=== PATIENT | male | born 1965 | race Caucasian/White ===

== ENCOUNTER 2025-03-17 10:36 | Outpatient (REF) | payer MEDICARE, MEDICAID, SELFPAY ==
--- OUTSIDE RECORDS SUMMARY | 2025-03-18 13:08 | XMS_ITS | Encounter Summary ---
Author Organization [facility] Address [address] [place] [address] Care Team Providers Care Load Mixer Name Role Phone ClairhelgachapinMo denton Primary Care Provider [phone] Reason for Visit * Reason Onset Date Comments provider call back 02/12/2025 Encounter Details Date Type Department Care Team ([facility] st Contact Info) Description 02/12/2025 Telephone Gastroenterology - [place] [address] [place] [address] Xenia Son PA [address] [place], [place] [phone] Social History Tobacco Use Types Packs/Day Years [...] I will send msg to pt via General Sentiment. * Hellen Sanders MA - 02/13/2025 8:27 AM EDT Spoke with patient made him aware Lesia is out of office from a GI standpoint things look normal - Patient states only a brown liquid comes out all the time as soon as he has a bite of food he is running in the bathroom - I did tell Patient you will write via [employer] regarding the results and his stool * Bettina Zimmerman - 02/12/2025 1:47 PM EDT Patient calling to discuss CT abdomen pelvis w contrast results that was performed 02/05/2025 documented in this encounter Plan of Treatment Upcoming Encounters Date Type Department Care Team (Late st Contact Info) Description 04/13/2025 2:00 PM EDT Office Visit Gastroenterology - [place] [address] [place] [address] Xenia Son PA [address] [place] [address] documented as of this encounter Visit Diagnoses Not on filedocumented in this encounter Care Teams Load Mixer Relationship Specialty Start Date End Date Mo Magana DO [address] [place] [phone] PCP - General 08/14/22 documented as of this encounter
--- OUTSIDE RECORDS SUMMARY | 2025-03-18 13:08 | XMS_ITS | Encounter Summary ---
Author Organization [facility] Address [address] [place] [address] Care Team Providers Care Auto Carrier Driver Name Role Phone Mo Magana Primary Care Provider [phone] Encounter Details Date Type Department Care Team (Late Contact Info) Description 01/22/2025 Lab Requisition [facility] [address] [facility] [place] [address] Janice Tello NP [address] [place] [address] [address] [place] [address] Urinary tract infection, site not specified; Hematuria, [...] 2:00 PM EDT Office Visit Gastroenterology - [place] [address] [facility] [address] [place] [phone] Xenia Son PA [address] [facility] [address] [address] documented as of this encounter Procedures Procedure [...] reflex microscopic (01/22/2025 9:00 AM EDT) Specific [place] Urine 1.030 1.003 - 1.030 LAB URINALYSIS - AUTOMATED METHOD 01/22/2025 1:06 PM [facility] pH, Urine 5.5 5.0 - 8.0 pH LAB URINALYSIS - AUTOMATED METHOD 01/22/2025 1:06 PM [facility] Leukocytes, Urine Negative Negative LAB URINALYSIS - AUTOMATED METHOD 01/22/2025 1:06 PM [facility] Nitrite, Urine Negative Negative LAB URINALYSIS - AUTOMATED METHOD 01/22/2025 1:06 PM [facility] Protein, Urine 30(A) <=Trace mg/dL LAB URINALYSIS - AUTOMATED METHOD 01/22/2025 1:06 PM [facility] Glucose, Urine Negative Negative mg/dL LAB URINALYSIS - AUTOMATED METHOD 01/22/2025 1:06 PM [facility] Ketones, Urine Trace(A) Negative mg/dL LAB URINALYSIS - AUTOMATED METHOD 01/22/2025 1:06 PM [facility] Urobilinogen, Urine 1.0 0.2 - 1.0 mg/dL LAB URINALYSIS - AUTOMATED METHOD 01/22/2025 1:06 PM T [facility] Bilirubin, Urine Negative Negative LAB URINALYSIS - AUTOMATED METHOD 01/22/2025 1:06 PM EDT [facility] Blood, Urine Negative Negative LAB URINALYSIS - AUTOMATED METHOD 01/22/2025 1:06 PM [facility] RBC, Urine 1.3 0 - 4 /HPF LAB URINALYSIS - AUTOMATED METHOD 01/22/2025 1:06 PM EDT [facility] WBC, Urine 1.0 0 - 4 /HPF LAB URINALYSIS - AUTOMATED METHOD 01/22/2025 1:06 PM [facility] Squamous Epithelial, Urine 12 0 - 60 /LPF LAB URINALYSIS - AUTOMATED METHOD 01/22/2025 1:06 PM [facility] Bacteria, Urine Negative Negative /HPF LAB URINALYSIS - AUTOMATED METHOD 01/22/2025 1:06 PM [facility] Hyaline Casts, Urine 0.8 0 - 3 /LPF LAB URINALYSIS - AUTOMATED METHOD 01/22/2025 1:06 PM [facility] Urine Urine specimen obtained by clean catch procedure / Unknown 01/22/2025 9:00 AM EDT 01/22/2025 11:06 AM EDT us Camacho Tello DENTURE WAXER LAB URINE ORDERABLES Final Resul t [facility] [address] [place] [address], * Culture urine (01/22/2025 9:00 AM EDT) Culture, Urine <10,000 CFU/mL gram positive cocci, insignificant count, no further workup 01/23/2025 7:44 AM EDT [facility] Urine Urine specimen obtained by clean catch procedure / Unknown 01/22/2025 9:00 AM EDT 01/22/2025 11:06 AM EDT us Camacho Tello DENTURE WAX[facility] LAB MICROBIOLOGY - GENERAL ORDER [place] Final Result [facility] [address] [place] [address], documented in this encounter Visit Diagnoses Diagnosis Urinary tract infection, site not specified Hematuria, unspecified documented in this encounter Care Teams Auto Carrier Driver Relationship Specialty Start Date End Date Mo Magana DO [address] [place] [place] [phone] PCP - General 08/14/22 documented as of this encounter
--- OUTSIDE RECORDS SUMMARY | 2025-03-18 13:08 | XMS_ITS | Encounter Summary ---
Author Organization [facility] Address [address] [place] [address] Care Team Providers Care Rehab Spec Name Role Phone ClairhelgachapinMo denton Primary Care Provider [phone] Reason for Visit * Reason Onset Date Comments Medication request 02/20/2025 Encounter Details Date Type Department Care Team ([facility] st Contact Info) Description 02/20/2025 Telephone Gastroenterology - [place] [address] [facility] [address] [place] [address] Xenia Son PA [address] [place], [place] [phone] Social History Tobacco Use Types Packs/Day Years [...] 02/20/2025 9:57 AM EDT Amanda almanzar from [facility] Specialty pharmacy requesting the maintenance dose of Rinvoq be sent over. Fax # [phone]. , Phone # [phone]. documented in this encounter Plan of Treatment Upcoming Encounters Date Type Department Care Team (Late st Contact Info) Description 04/13/2025 2:00 PM EDT Office Visit Gastroenterology - [place] [address] [place] [phone] Xenia Son PA [address] [place] [address] documented as of this encounter Visit Diagnoses Not on filedocumented in this encounter Care Teams Rehab Spec Relationship Specialty Start Date End Date Mo Magana DO [address] [place] [phone] PCP - General 08/14/22 documented as of this encounter
--- OUTSIDE RECORDS SUMMARY | 2025-03-18 13:09 | XMS_ITS | Clinical Summary ---
Author Organization [facility] Address [address] [place] [address] Phone Care Team Providers Care Cigar Head Pegger Name Role Phone Eliebertin Mo Primary Care Provider [phone] Allergies Active Allergy Reactions Criticality Noted Date [...] disease of small int estine with fistula ([facility] V24, [facility] V28) 07/15/2024 Encounters Date Type Department Care Team Description 02/20/2025 Telephone Gastroenterology [facility] [address] [phone] Xenia Son PA 02/17/2025 Telephone Gastroenterology [facility] 175 [facility] [address] [phone] Xenia Son PA 02/12/2025 Telephone Gastroenterology [facility] 175 [facility] [address] [phone] Xenia Son PA 02/05/2025 7:40 AM EDT - 02/05/2025 11:59 PM EDT Hospital Encounter [facility] CT Scan [address] [place] [phone] Crohn's disease of small intestine with fistula ([facility] V24, [facility] V28) Discharge Disposition: Home or Self Care 01/28/2025 Telephone Gastroenterology [facility] [address] [place] [address] Xenia Son PA 01/22/2025 Lab Requisition [facility] - Main Lab [address] [facility] [place] [address] Janice Tello NP Urinary tract infection, site not specified; Hematuria, unspecified 01/07/2025 2:50 PM EDT Lab Draw Station - [address] [place] [address] Crohn's disease of small intestine with fistula ([facility] V24, [facility] V28) 01/07/2025 2:00 PM EDT Office Visit Gastroenterology [facility] [address] [place] [address] Xenia Son PA Crohn's disease of small intestine with fistula ([facility] V24, [facility] V28) (Primary Dx) 01/07/2025 Telephone Gastroenterology [facility] [address] [place] [address] Xenia Son PA from Last 3 Months Surgical History Surgery Date Site/Laterality Comments OTHER SURGICAL HISTORY COLONOSCOPY COLON SURGERY Medical History Medical History Date Comments Hyperlipidemia Hypertension Diabetes mellitus ([facility] V24, [facility] V28) Crohn's disease of colon with fistula ([facility] 24, [facility] V28) Irritable bowel syndrome Anxiety Depression Chronic pain disorder Arthritis Joint pain multtiple Abdominal pain despite thera py for Crohn's disease ([facility] V24, [facility] V28) Social History Tobacco Use Types Packs/Day [...] 2:00 PM EDT Office Visit Gastroenterology - [place] [address] [place] [address] Xenia Son PA [address] [place] [address] Health Maintenance Due Date Last Done Comments [...] Crohn's disease of small intestine with fistula ([facility] V24, [facility] V28) URINALYSIS WITH REFLEX MICROSCOPIC Routine 01/22/2025 [...] CREATINE KINASE Routine 01/09/2025 2:39 PM EDT GABBEI (generalized anxiety disorder) Crohn disease (CMS/HCC V24, [...] Signed Date: 02/05/2025 16:07 ET Workstation ID: [id number] Transcribed By: Self Edit Transcribed Date: 02/05/2025 [...] Signed Date: 02/05/2025 16:07 ET Workstation ID: [id number] Transcribed By: Self Edit Transcribed Date: 02/05/2025 15:57 ET Xenia RUTH IM CT PROCEDURES Final Resul t * (ABNORMAL) Urinalysis with reflex microscopic (01/22/2025 9:00 AM ED) Specific Carmine Urine 1.030 1.003 - 1.030 LAB URINALYSIS - AUTOMATED METHOD 01/22/2025 1:06 PM [facility] pH, Urine 5.5 5.0 - 8.0 pH LAB URINALYSIS - AUTOMATED METHOD 01/22/2025 1:06 PM [facility] Leukocytes, Urine Negative Negative LAB URINALYSIS - AUTOMATED METHOD 01/22/2025 1:06 PM [facility] Nitrite, Urine Negative Negative LAB URINALYSIS - AUTOMATED METHOD 01/22/2025 1:06 PM [facility] Protein, Urine 30(A) <=Trace mg/dL LAB URINALYSIS - AUTOMATED METHOD 01/22/2025 1:06 PM [facility] Glucose, Urine Negative Negative mg/dL LAB URINALYSIS - AUTOMATED METHOD 01/22/2025 1:06 PM [facility] Ketones, Urine Trace(A) Negative mg/dL LAB URINALYSIS - AUTOMATED METHOD 01/22/2025 1:06 PM [facility] Urobilinogen, Urine 1.0 0.2 - 1.0 mg/dL LAB URINALYSIS - AUTOMATED METHOD 01/22/2025 1:06 PM [facility] Bilirubin, Urine Negative Negative LAB URINALYSIS - AUTOMATED METHOD 01/22/2025 1:06 PM [facility] Blood, Urine Negative Negative LAB URINALYSIS - AUTOMATED METHOD 01/22/2025 1:06 PM [facility] RBC, Urine 1.3 0 - 4 /HPF LAB URINALYSIS - AUTOMATED METHOD 01/22/2025 1:06 PM [facility] WBC, Urine 1.0 0 - 4 /HPF LAB URINALYSIS - AUTOMATED METHOD 01/22/2025 1:06 PM EDT [facility] Squamous Epithelial, Urine 12 0 - 60 /LPF LAB URINALYSIS - AUTOMATED METHOD 01/22/2025 1:06 PM EDT [facility] Bacteria, Urine Negative Negative /HPF LAB URINALYSIS - AUTOMATED METHOD 01/22/2025 1:06 PM EDT [facility] Hyaline Casts, Urine 0.8 0 - 3 /LPF LAB URINALYSIS - AUTOMATED METHOD 01/22/2025 1:06 PM EDT [facility] Urine Urine specimen obtained by clean catch procedure / Unknown 01/22/2025 9:00 AM EDT 01/22/2025 11:06 AM EDT us Camacho Tello MILLINERY COPYIST LAB URINE ORDERABLES Final Resul t Performing Organization Address City/[facility]/ZIP Co de Phone Number [facility] [address] [place] [address], * Culture urine (01/22/2025 9:00 AM EDT) Culture, Urine <10,000 CFU/mL gram positive cocci, insignificant count, no further workup 01/23/2025 7:44 AM EDT [facility] Urine Urine specimen obtained by clean catch procedure / Unknown 01/22/2025 9:00 AM EDT 01/22/2025 11:06 AM EDT us Camacho Tello MILLINERY COPYIST LAB MICROBIOLOGY - GENERAL ORDER ARCADIO Final Result [facility] [address] [place] [address], [place] [phone] * Prostate specific antigen screen (01/09/2025 2:39 PM EDT) PSA 1.23 0.00 - 4.00 ng/mL LAB CHEMISTRY METHOD [facility] Blood Venous blood specimen / Unknown Venipuncture / Unknown 01/09/2025 2:39 PM EDT 01/09/2025 2:39 PM EDT Narrative [facility] - 01/09/2025 7:50 PM EDT The Siemens Advia Centaur Chemiluminescent Immunoassay is used. Results obtained with different assay methods or kits cannot be used interchangeably. Results cannot be interpreted as absolute evidence of the presence or absence of malignant disease. us Camacho Tello MILLINERY COPYIST LAB BLOOD ORDERABLES Final Resul t [facility] [address] [place] [address], [place] [phone] * (ABNORMAL) CBC auto differential (01/09/2025 2:39 PM EDT) Only the most recent of2 resultswithin the time period is included. WBC 9.1 4.8 - 10.8 K/mcL LAB HEMETOLOGY METHOD 01/09/2025 7:32 PM EDT [facility] RBC 4.30(L) 4.50 - 5.50 M/mcL LAB HEMETOLOGY METHOD 01/09/2025 7:32 PM EDT [facility] Hemoglobin 12.3(L) 13.5 - 17.5 g/dL LAB HEMETOLOGY METHOD 01/09/2025 7:32 PM EDT [facility] Hematocrit 37.6(L) 42.0 - 54.0 % LAB HEMETOLOGY METHOD 01/09/2025 7:32 PM EDT [facility] MCV 88.3 79.0 - 98.0 FL LAB HEMETOLOGY METHOD 01/09/2025 7:32 PM EDT [facility] MCH 28.9 27.0 - 32.0 pcg LAB HEMETOLOGY METHOD 01/09/2025 7:32 PM EDT [facility] MCHC 32.7 32.0 - 37.0 g/dL LAB HEMETOLOGY METHOD 01/09/2025 7:[facility] RDW 14.5 11.0 - 15.0 % LAB HEMETOLOGY METHOD 01/09/2025 7:[facility] Platelets 286 130 - 400 K/mcL LAB HEMETOLOGY METHOD 01/09/2025 7:[facility] MPV 10.1 7.0 - 11.0 FL LAB HEMETOLOGY METHOD 01/09/2025 7:[facility] NRBC 0.0 <1.0 % LAB HEMETOLOGY METHOD 01/09/2025 7:32 PM [facility] NRBC Absolute 0.00 <0.10 K/mcL LAB HEMETOLOGY METHOD 01/09/2025 7:32 PM [facility] Neutrophils Relative 65.3 % LAB HEMETOLOGY METHOD 01/09/2025 7:32 PM [facility] Lymphocytes Relative 25.6 % LAB HEMETOLOGY METHOD 01/09/2025 7:32 PM [facility] Monocytes Relative 7.1 % LAB HEMETOLOGY METHOD 01/09/2025 7:32 PM [facility] Eosinophils Relative 0.9 % LAB HEMETOLOGY METHOD 01/09/2025 7:32 PM [facility] Basophils Relative 0.8 % LAB HEMETOLOGY METHOD 01/09/2025 7:32 PM [facility] Immature Granulocytes Relative 0.3 % LAB HEMETOLOGY METHOD 01/09/2025 7:32 PM [facility] Neutrophils Absolute 5.95 1.50 - 7.00 K/mcL LAB HEMETOLOGY METHOD 01/09/2025 7:32 PM [facility] Lymphocytes Absolute 2.33 1.00 - 5.00 K/mcL LAB HEMETOLOGY METHOD 01/09/2025 7:32 PM EDT [facility] Monocytes Absolute 0.65 0.20 - 1.00 K/[facility] LAB HEMETOLOGY METHOD 01/09/2025 7:32 PM EDT [facility] Eosinophils Absolute 0.08 0.00 - 0.50 K/[facility] LAB HEMETOLOGY METHOD 01/09/2025 7:32 PM EDT [facility] Basophils Absolute 0.07 0.00 - 0.20 K/[facility] LAB HEMETOLOGY METHOD 01/09/2025 7:32 PM EDT [facility] Immature Granulocytes Absolute 0.03 0.00 - 0.03 K/[facility] LAB HEMETOLOGY METHOD 01/09/2025 7:32 PM EDT [facility] Blood Venous blood specimen / Unknown Venipuncture / Unknown 01/09/2025 2:39 PM EDT 01/09/2025 2:39 PM EDT us Camacho Tello MILLINERY COPYIST LAB BLOOD ORDERABLES Final Resul t [facility] [address] [place] [address], * Iron and TIBC (01/09/2025 2:39 PM EDT) Iron 146 50 - 160 mcg/dL LAB CHEMISTRY METHOD 01/09/2025 7:41 PM EDT [facility] TIBC 299 250 - 450 mcg/dL LAB CHEMISTRY METHOD 01/09/2025 7:41 PM EDT [facility] Iron Saturation 49 20 - 50 % LAB CHEMISTRY METHOD 01/09/2025 7:41 PM EDT [facility] Blood Venous blood specimen / Unknown Venipuncture / Unknown 01/09/2025 2:39 PM EDT 01/09/2025 2:39 PM EDT Camacho Tello MILLINERY COPYIST LAB BLOOD ORDERABLES Final Resul t Performing Organization Address [facility] de Phone Number [facility] [address] [place] [address], [place] [phone] * (ABNORMAL) Reticulocyte count (01/09/2025 2:39 PM EDT) Retic Ct Abs 0.100(H) 0.030 - 0.090 M/mcL LAB HEMETOLOGY METHOD 01/09/2025 7:32 PM EDT [facility] Retic Ct Pct 2.3(H) 0.7 - 1.7 % LAB HEMETOLOGY METHOD 01/09/2025 7:32 PM EDT [facility] Immature Retic Fract 11.8 2.3 - 15.9 % LAB HEMETOLOGY METHOD 01/09/2025 7:32 PM EDT [facility] Reticulocyte Hemoglobin 34.6 >29.0 pcg LAB HEMETOLOGY METHOD 01/09/2025 7:32 PM EDT [facility] Blood Venous blood specimen / Unknown Venipuncture / Unknown 01/09/2025 2:39 PM EDT 01/09/2025 2:39 PM EDT Janice Tello MILLINERY COPYIST LAB BLOOD ORDERABLES Final Resul t Performing Organization Address City/[facility]/ZIP Or de Phone Number [facility] [address] [place] [address], [place] [phone] * Ferritin (01/09/2025 2:39 PM EDT) Ferritin 124 26 - 388 ng/mL LAB CHEMISTRY METHOD 01/09/2025 7:41 PM EDT [facility] Blood Venous blood specimen / Unknown Venipuncture / Unknown 01/09/2025 2:39 PM EDT 01/09/2025 2:39 PM EDT us Janice Tello MILLINERY COPYIST LAB BLOOD ORDERABLES Final Resul t Performing Organization Address [facility]/ZIP Co de Phone Number [facility] [address] [place] [address], [place] [phone] * Creatine kinase (01/09/2025 2:39 PM EDT) Pathologist [facility] Total CK 123 22 - 269 unit/L LAB CHEMISTRY METHOD 01/09/2025 7:41 PM EDT [facility] Blood Venous blood specimen / Unknown Venipuncture / Unknown 01/09/2025 2:39 PM EDT 01/09/2025 2:39 PM EDT us Janice Tello MILLINERY COPYIST LAB BLOOD ORDERABLES Final Resul t Performing Organization Address [facility] de Phone Number [facility] [address] [place] [address], [place] [phone] * Interferon gamma interpretation (01/07/2025 2:50 PM EDT) [facility] Quantiferon Plus Interpretation Negative Negative LAB CHEMISTRY METHOD 01/09/2025 10:51 AM EDT [facility] Blood Venous blood specimen / Unknown Venipuncture / Unknown 01/07/2025 2:50 PM EDT 01/07/2025 2:50 PM EDT us Xenia RUTH LAB BLOOD ORDERABLES Final Re sult Performing Organization Address [facility]/ZIP Co de Phone Number [facility] [address] [place] [address], [place] [phone] * Interferon gamma antigen 2 (01/07/2025 2:50 PM EDT) Blood Venous blood specimen / Unknown Venipuncture / Unknown 01/07/2025 2:50 PM EDT 01/07/2025 2:50 PM EDT us Xenia RUTH LAB BLOOD ORDERABLES Final Re sult Performing Organization Address City/[facility]/ZIP Co de Phone Number [facility] [address] [place] [address], [place] [phone] * Interferon gamma antigen 1 (01/07/2025 2:50 PM EDT) Blood Venous blood specimen / Unknown Venipuncture / Unknown 01/07/2025 2:50 PM EDT 01/07/2025 2:50 PM EDT us Xenia RUTH LAB BLOOD ORDERABLES Final Re sult Performing Organization Address [facility] Co de Phone Number [facility] [address] [place] [address], [place] [phone] * Interferon gamma mitogen (01/07/2025 2:50 PM EDT) Blood Venous blood specimen / Unknown Venipuncture / Unknown 01/07/2025 2:50 PM EDT 01/07/2025 2:50 PM EDT Xenia RUTH LAB BLOOD ORDERABLES Final Re sult Performing Organization Address [facility] Co de Phone Number [facility] [address] [place] [address], [place] [phone] * Interferon gamma NIL (01/07/2025 2:50 PM EDT) Blood Venous blood specimen / Unknown Venipuncture / Unknown 01/07/2025 2:50 PM EDT 01/07/2025 2:50 PM EDT us Xenia RUTH LAB BLOOD ORDERABLES Final Re sult Performing Organization Address [facility]/ZIP Co de Phone Number [facility] [address] [place] [address], [place] [phone] * Hepatitis B e antibody (01/07/2025 2:50 PM EDT) Hepatitis Be Antibody Nonreactive Nonreactive 01/10/2025 6:34 AM EDT [facility] Comment: Test performed at [facility], [address] [place] [address] Adela Jung MD, PhD - Manager Interface Blood Venous blood specimen / Unknown Venipuncture / Unknown 01/07/2025 2:50 PM EDT 01/07/2025 2:50 PM EDT us Xenia Huy PA LAB BLOOD ORDERABLES Final Re sult [facility] [address] [place] [address] * Hepatitis B e antigen (01/07/2025 2:50 PM EDT) Pathologist [facility] Hepatitis Be Antigen Nonreactive Nonreactive 01/10/2025 6:34 AM EDT [facility] Comment: Test performed at [facility], [address] [place] [address] Adela Jung MD, PhD - Manager Interface Blood Venous blood specimen / Unknown Venipuncture / Unknown 01/07/2025 2:50 PM EDT 01/07/2025 2:50 PM EDT us Xeniaaniya Son PA LAB BLOOD ORDERABLES Final Re sult [facility] [address] [place] [address] * C-reactive protein (01/07/2025 2:50 PM EDT) Pathologist [facility] C-Reactive Protein <0.29 <=0.50 mg/dL LAB CHEMISTRY METHOD 01/07/2025 7:00 PM EDT [facility] Blood Venous blood specimen / Unknown Venipuncture / Unknown 01/07/2025 2:50 PM EDT 01/07/2025 2:50 PM EDT us Xenia RUTH LAB BLOOD ORDERABLES Final Re sult [facility] [address] [place] [address], [place] [phone] * (ABNORMAL) Comprehensive metabolic panel (01/07/2025 2:50 PM EDT) Sodium 136 133 - 145 mmol/L LAB CHEMISTRY METHOD 01/07/2025 7:24 PM [facility] Potassium 4.0 3.5 - 5.5 mmol/L LAB CHEMISTRY METHOD 01/07/2025 7:24 PM [facility] Chloride 102 96 - 110 mmol/L LAB CHEMISTRY METHOD 01/07/2025 7:24 PM [facility] CO2 23 21 - 32 mmol/L LAB CHEMISTRY METHOD 01/07/2025 7:24 PM [facility] Anion Gap 11 3 - 11 LAB CHEMISTRY METHOD 01/07/2025 7:24 PM [facility] Glucose 199(H) 70 - 100 mg/dL LAB CHEMISTRY METHOD 01/07/2025 7:24 PM [facility] BUN 13 5 - 25 mg/dL LAB CHEMISTRY METHOD 01/07/2025 7:24 PM [facility] Creatinine 1.12 0.70 - 1.30 mg/dL LAB CHEMISTRY METHOD 01/07/2025 7:24 PM [facility] eGFR 75 >=60 mL/min/1. 73m2 LAB CHEMISTRY METHOD 01/07/2025 7:24 PM [facility] Comment:Calculation based on the Chronic Kidney Disease Epidemiology Collaboration (CKD-EPI) equation refit without adjustment for race. BUN/Creatinine Ratio 11.6 LAB CHEMISTRY METHOD 01/07/2025 7:24 PM [facility] Calcium 9.9 8.5 - 10.5 mg/dL LAB CHEMISTRY METHOD 01/07/2025 7:24 PM EDT [facility] AST (SGOT) 14 10 - 42 unit/L LAB CHEMISTRY METHOD 01/07/2025 7:24 PM EDT [facility] ALT (SGPT) 27 10 - 60 unit/L LAB CHEMISTRY METHOD 01/07/2025 7:24 PM EDT [facility] Alkaline Phosphatase 86 42 - 121 unit/L LAB CHEMISTRY METHOD 01/07/2025 7:24 PM EDT [facility] Total Protein 7.8 6.0 - 8.0 g/dL LAB CHEMISTRY METHOD 01/07/2025 7:24 PM [facility] Albumin 3.9 3.2 - 5.0 g/dL LAB CHEMISTRY METHOD 01/07/2025 7:24 PM [facility] Total Bilirubin 0.4 0.0 - 1.4 mg/dL LAB CHEMISTRY METHOD 01/07/2025 7:24 PM T [facility] Blood Venous blood specimen / Unknown Venipuncture / Unknown 01/07/2025 2:50 PM EDT 01/07/2025 2:50 PM EDT Xenia RUTH LAB BLOOD ORDERABLES Final Re sult [facility] [address] [place] [address], * Lipid panel with reflex to direct LDL (10/17/2024 2:48 PM EDT) Cholesterol 98 0 - 200 mg/dL LAB CHEMISTRY METHOD 10/17/2024 8:13 PM EDT [facility] Triglycerides 89 0 - 150 mg/dL LAB CHEMISTRY METHOD 10/17/2024 8:13 PM EDT [facility] HDL 51 >=40 mg/dL LAB CHEMISTRY METHOD 10/17/2024 8:13 PM EDT [facility] LDL Calculated 29 0 - 100 mg/dL LAB CHEMISTRY METHOD 10/17/2024 8:13 PM EDT [facility] VLDL Cholesterol Rajeev 17.8 mg/dL LAB CHEMISTRY METHOD 10/17/2024 8:13 PM EDT [facility] Non HDL Chol. (LDL+VLDL) 47 <145 mg/dL LAB CHEMISTRY METHOD 10/17/2024 8:13 PM EDT [facility] Chol/HDL Ratio 1.9 0.0 - 4.4 LAB CHEMISTRY METHOD 10/17/2024 8:13 PM EDT [facility] Blood Venous blood specimen / Unknown Venipuncture / Unknown 10/17/2024 2:48 PM EDT 10/17/2024 2:48 PM EDT us Camacho Tello MILLINERY COPYIST LAB BLOOD ORDERABLES Final Resul t Performing Organization Address City/[facility]/ZIP Co de Phone Number [facility] [address] [place] [address], [place] [phone] * Hemoglobin A1c (10/17/2024 2:48 PM EDT) Hemoglobin A1C 6.0 <6.5 % LAB CHEMISTRY METHOD 10/17/2024 9:34 PM EDT [facility] Mean Bld Glu Estim. 126 mg/dL LAB CHEMISTRY METHOD 10/17/2024 9:34 PM EDT [facility] Blood Venous blood specimen / Unknown Venipuncture / Unknown 10/17/2024 2:48 PM EDT 10/17/2024 2:48 PM EDT us Camacho Tello MILLINERY COPYIST LAB BLOOD ORDERABLES Final Resul t Performing Organization Address City/[facility]/ZIP Co de Phone Number [facility] [address] [place] [address], [place] [phone] from Last 3 Months or Most Recently Relevant to Health Maintenance Insurance MEDICA[place] MEDICARE [facility] [place] [employer] Care Teams Cigar Head Pegger Relationship Specialty Start Date End Date Mo Magana DO [address] [place] [id number] PCP - General 08/14/22
== END 2025-03-17 10:37 | disposition home or self-care (01) ==
LOC: HO.HOSX 10:36
PROVIDERS: Visit Provider Orthopaedic Surgery
DX: M25.512 Pain in left shoulder (principal); M54.2 Cervicalgia; R20.0 Anesthesia of skin; R29.898 Other symptoms and signs involving the musculoskeletal system
CPT/HCPCS: 99202

== ENCOUNTER 2025-03-17 14:45 | Outpatient (AMB) | payer MEDICARE, MEDICAID, SELFPAY ==
--- NOTE | 2025-03-17 15:18 | MHC.OFFVIS ---
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 He also reports left shoulder pain and weakness. He describes his neck pain as sharp in nature. At times the patient states that his left arm will ?go numb?. The numbness involves all of his fingers and thumb. His symptoms have gotten worse over the last year in spite of continued non operative treatments. He has failed the last 6 weeks of conservative treatment which has included Tylenol, ibuprofen, gabapentin, a home exercise program and physical therapy exercises. The patient describes his shoulder pain as sharp in nature. Most of the pain is along the lateral aspect of his shoulder. Reports weakness when lifting his left hand above shoulder height. 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 Allergies No Known Allergies Allergy (Verified 03/17/25 15:29) Medication List - Last Reconciled 03/18/25 by Bladimir Michael MD amlodipine 5 mg PO DAILY gabapentin mg PO glipizide ER mg PO ibuprofen 800 mg PO TID lorazepam mg PO losartan 100 mg PO DAILY metformin 1,000 mg PO BID omeprazole 20 mg PO DAILY rosuvastatin 10 mg PO DAILY tamsulosin mg PO PFSH Surgical History (Updated 03/17/25 @ 15:31 by MAILE Blackman) History of intestinal surgery Social History (Updated 03/17/25 @ 15:31 by MAILE Blackman) Alcohol intake: former Patient Tobacco Use Status: Never used Tobacco Substance Use Type: Marijuana Current occupational status: disabled Current occupation: right hand dominant Physical Exam Vital Signs: BMI result Body Mass Index 38.0 Const Other: Well-nourished well-developed very friendly male awake alert and oriented x3 in no acute distress Neck Other: Cervical spine examination shows pain with range of motion, left-sided paraspinal muscle tenderness, positive Spurling's test, 4/5 strength with testing of his left wrist extensors and biceps when compared to 5/5 strength on his right side Extrem Other: Left shoulder examination shows decreased range of motion when compared to his right shoulder, 4/5 strength with supraspinatus testing, positive impingement signs, no instability Assessment & Plan Assessment & Plan (1) Left shoulder pain: Code(s): M25.512 - Pain in left shoulder Category: Medical (2) Neck pain on left side: Code(s): M54.2 - Cervicalgia Category: Medical Plan Mr. Aguilar presents with progressively worsening neck pain which radiates into his left arm as well as associated left arm numbness and weakness most likely due to cervical stenosis. Thus, I will send the patient for an MRI of his cervical spine for further evaluation. I will contact him by phone once the MRI results are available. We will hold off on a left shoulder MRI for now. Feel free to call me at any time should questions regarding his orthopedic management arise. Thank you very much for asking me to see this very friendly gentleman. I spent 21 minutes in reviewing the patient's records and imaging studies, seeing the patient and documenting in the medical record. Orders: Orders XR shoulder LT min 2V 03/17/25 M25.512 - Pain in left shoulder MR cervical spine wo con Today M54.2 - Cervicalgia Coding Level of Care Code New Pt Level 3 (10444) Complex EM visit Add On G2211 Diagnoses Left shoulder pain M25.512 Neck pain on left side M54.2
[2025-03-17 15:28] VITALS: BMI 38.0
--- OUTSIDE RECORDS SUMMARY | 2025-03-17 18:24 | XMS_ITS | Encounter Summary ---
Author Organization [facility] Address [address] [place] [address] Care Team Providers Care Dry Placer Machine Operator Name Role Phone ClairhelgachapinMo denton Primary Care Provider [phone] Reason for Visit * Reason Onset Date Comments Medication request 02/20/2025 Encounter Details Date Type Department Care Team ([facility] st Contact Info) Description 02/20/2025 Telephone Gastroenterology - [place] [address] [place] [address] Xenia Son PA [address] [place], [place] [id number] Social History Tobacco Use Types Packs/Day Years Used Date Smoking Tobacco: Never Smokeless Tobacco: Never Alcohol Use Standard Drinks/Week Comments Not Currently 0 (1 standard drink = 0.6 oz pur e alcohol) Interpersonal Safety Answer Date Record ed Physical Abuse 09/11/2024 Verbal Abuse 09/11/2024 Sex and Gender Information Value Date Recorded Sex Assigned at Male 05/07/2024 2:54 PM EST Legal Sex Male 3:15 AM EST Gender Identity Male 05/07/2024 2:54 PM EST Sexual Orientation Straight 09/11/2024 8: 03 AM EDT documented as of this encounter Ordered Prescriptions Prescription Sig Dispense Quantity Refills Last Filled Start Date End Date upadacitinib (Rinvoq) 15 mg tablet extended release 24 hr Take 15 mg by mouth 1 (one) time each day. Start after rinvoq 45mg completed. 30 tablet 3 02/23/2025 documented in this encounter Progress Notes * FARAZ Sagastume - 02/23/2025 10:53 AM EDT done * Alyson Bhardwaj - 02/23/2025 9:53 AM EDT Pharmacy called on this prescription - let them know it is pended and waiting for provider to sign. * Sanjuana Bolanos LPN - 02/23/2025 9:30 AM EDT Rinvoq 15mg pended, please send. * Bettina Zimmerman - 02/20/2025 9:57 AM EDT Amanda almanzar from [facility] pharmacy requesting the maintenance dose of Rinvoq be sent over. Fax # [phone]. , Phone # [phone]. documented in this encounter Plan of Treatment Upcoming Encounters Date Type Department Care Team (Late st Contact Info) Description 04/13/2025 2:00 PM EDT Office Visit Gastroenterology - [place] [address] [place] [phone] Xenia Son PA [address] [place] [address] documented as of this encounter Visit Diagnoses Not on filedocumented in this encounter Care Teams Dry Placer Machine Operator Relationship Specialty Start Date End Date Mo Magana DO [address] [place] [phone] PCP - General 08/14/22 documented as of this encounter
--- OUTSIDE RECORDS SUMMARY | 2025-03-17 18:24 | XMS_ITS | Encounter Summary ---
Author Organization [facility] Address [address] [place] [address] Care Team Providers Care Industrial Twisting Machine Operator Name Role Phone ClairhelgachapinMo denton Primary Care Provider [phone] Reason for Visit * Reason Onset Date Comments provider call back 02/12/2025 Encounter Details Date Type Department Care Team ([facility] st Contact Info) Description 02/12/2025 Telephone Gastroenterology - [place] [address] [place] [address] Xenia Son PA [address] [place], [place] [phone] Social History Tobacco Use Types Packs/Day Years [...] AM EDT documented as of this encounter Progress Notes * FARAZ Sagastume - 02/14/2025 3:07 PM EDT I will send msg to pt via [facility]. * Hellen Sanders MA - 02/13/2025 8:27 AM EDT Spoke with patient made him aware Lesia is out of office from a GI standpoint things look normal - Patient states only a brown liquid comes out all the time as soon as he has a bite of food he is running in the bathroom - I did tell Patient you will write via [facility] regarding the results and his stool * Bettina Zimmerman - 02/12/2025 1:47 PM EDT Patient calling to discuss CT abdomen pelvis w contrast results that was performed 02/05/2025 documented in this encounter Plan of Treatment Upcoming Encounters Date Type Department Care Team (Late st Contact Info) Description 04/13/2025 2:00 PM EDT Office Visit Gastroenterology - [place] [address] [place] [address] Xenia Son PA [address] [place] [address] documented as of this encounter Visit Diagnoses Not on filedocumented in this encounter Care Teams Industrial Twisting Machine Operator Relationship Specialty Start Date End Date Mo Magana DO [address] [place] [phone] PCP - General 08/14/22 documented as of this encounter
--- OUTSIDE RECORDS SUMMARY | 2025-03-17 18:24 | XMS_ITS | Encounter Summary ---
Author Organization [facility] Address [address] [place] [address] Care Team Providers Care Counter Tender Name Role Phone Mo Magana Primary Care Provider [phone] Encounter Details Date Type Department Care Team (Late Contact Info) Description 01/22/2025 Lab Requisition [facility] [address] [facility] [place] [address] Janice Tello NP [address] [place] [address] [address] [place] [address] Urinary tract infection, site not specified; Hematuria, unspecified Social History Tobacco Use Types Packs/Day Years [...] AM EDT documented as of this encounter Plan of Treatment Upcoming Encounters Date Type Department Care Team (Late Contact Info) Description 04/13/2025 2:00 PM EDT Office Visit Gastroenterology - [place] [address] [place] [phone] Xenia Son PA [address] [address] documented as of this encounter Procedures Procedure Name Priority Date/Time Associated Diagnosis Comments URINALYSIS WITH REFLEX MICROSCOPIC Routine 01/22/2025 9:00 AM EDT Urinary tract infection, site not specified Hematuria, unspecified URINALYSIS WITH REFLEX MICROSCOPIC Routine 01/22/2025 9:00 AM EDT Urinary tract infection, site not specified Hematuria, unspecified CULTURE URINE Routine 01/22/2025 9:00 AM EDT Urinary tract infection, site not specified Hematuria, unspecified documented in this encounter Results * (ABNORMAL) Urinalysis with reflex microscopic (01/22/2025 9:00 AM EDT) Specific [place] Urine 1.030 1.003 - 1.030 LAB URINALYSIS - AUTOMATED METHOD 01/22/2025 1:[address] [facility] pH, Urine 5.5 5.0 - 8.0 pH LAB URINALYSIS - AUTOMATED METHOD 01/22/2025 1:[address] [facility] Leukocytes, Urine Negative Negative LAB URINALYSIS - AUTOMATED METHOD 01/22/2025 1:[address] [facility] Nitrite, Urine Negative Negative LAB URINALYSIS - AUTOMATED METHOD 01/22/2025 1:[address] [facility] Protein, Urine 30(A) <=Trace mg/dL LAB URINALYSIS - AUTOMATED METHOD 01/22/2025 1:[address] [facility] Glucose, Urine Negative Negative mg/dL LAB URINALYSIS - AUTOMATED METHOD 01/22/2025 1:[address] [facility] Ketones, Urine Trace(A) Negative mg/dL LAB URINALYSIS - AUTOMATED METHOD 01/22/2025 1:[address] [facility] Urobilinogen, Urine 1.0 0.2 - 1.0 mg/dL LAB URINALYSIS - AUTOMATED METHOD 01/22/2025 1:06 PM T [facility] Bilirubin, Urine Negative Negative LAB URINALYSIS - AUTOMATED METHOD 01/22/2025 1:06 PM EDT [facility] Blood, Urine Negative Negative LAB URINALYSIS - AUTOMATED METHOD 01/22/2025 1:[address] [facility] RBC, Urine 1.3 0 - 4 /HPF LAB URINALYSIS - AUTOMATED METHOD 01/22/2025 1:06 PM EDT [facility] WBC, Urine 1.0 0 - 4 /HPF LAB URINALYSIS - AUTOMATED METHOD 01/22/2025 1:[address] [facility] Squamous Epithelial, Urine 12 0 - 60 /LPF LAB URINALYSIS - AUTOMATED METHOD 01/22/2025 1:[address] [facility] Bacteria, Urine Negative Negative /HPF LAB URINALYSIS - AUTOMATED METHOD 01/22/2025 1:[address] [facility] Hyaline Casts, Urine 0.8 0 - 3 /LPF LAB URINALYSIS - AUTOMATED METHOD 01/22/2025 1:[address] [facility] Urine Urine specimen obtained by clean catch procedure / Unknown 01/22/2025 9:00 AM EDT 01/22/2025 11:06 AM EDT us Camacho Tello DISEASE EDUCATION SPECIALIST LAB URINE ORDERABLES Final Resul t [facility] [address] [place] [address], * Culture urine (01/22/2025 9:00 AM EDT) Culture, Urine <10,000 CFU/mL gram positive cocci, insignificant count, no further workup 01/23/2025 7:44 AM EDT [facility] Urine Urine specimen obtained by clean catch procedure / Unknown 01/22/2025 9:00 AM EDT 01/22/2025 11:06 AM EDT us Camacho Tello DISEASE EDUCATION SPECIALIST LAB MICROBIOLOGY - GENERAL ORDER [place] Final Result [facility] [address] [place] [address], documented in this encounter Visit Diagnoses Diagnosis Urinary tract infection, site not specified Hematuria, unspecified documented in this encounter Care Teams Counter Tender Relationship Specialty Start Date End Date Mo Magana DO [address] [place] [phone] PCP - General 08/14/22 documented as of this encounter
--- OUTSIDE RECORDS SUMMARY | 2025-03-17 18:25 | XMS_ITS | Clinical Summary ---
Author Organization [facility] Address [address] [place] [address] Phone Care Team Providers Care Director Learning Services Name Role Phone Eliebertin Mo Primary Care Provider [phone] Allergies Active Allergy Reactions Criticality Noted Date Comments Adalimumab Rash 12/27/2022 Medications losartan (COZAAR) 100 mg tablet 1 tablet (100 mg total). Active metFORMIN (GLUCOPHAGE) 1,000 mg tablet Take 1 tablet (1,000 mg total) by mouth 2 (two) times a day with meals. Active freestyle (FreeStyle Lancets) 28 gauge lancets Active amLODIPine (NORVASC) 5 mg tablet Take 1 tablet (5 mg total) by mouth 1 (one) time each day. Active rosuvastatin (CRESTOR) 10 mg tablet Take 1 tablet (10 mg total) by mouth 1 (one) time each day. Active LORazepam (ATIVAN) 0.5 mg tablet Take 1 tablet (0.5 mg total) by mouth every 6 (six) hours if needed for anxiety. Active buprenorphine-n aloxone (Suboxone) 8-2 mg per SL film Place under the tongue 1 (one) time each day. After the medication is completely dissolved, take a large sip of water, swish it around teeth and gums, and swallow. Wait at least 1 hour before brushing teeth to avoid damage to your teeth. Active glipiZIDE (GLUCOTROL XL) 10 mg 24 hr tablet 1 tablet (10 mg total). Active oxyCODONE (ROXICODONE) 5 mg immediate release tablet Take 1 tablet (5 mg total) by mouth every 4 (four) hours if needed for severe pain. Max Daily Amount: 30 mg 15 tablet 5 Active Additional Information Patient not taking.Reported on 01/07/2025 magnesium oxide 500 mg magnesium tablet Take 1 tablet by mouth 1 (one) time each day. 30 each 3 5 Active predniSONE (DELTASONE) 10 mg tablet Please take 4 pills of prednisone for 5 days, then take 3 pills of prednisone for 5 days, then take 2 pills of prednisone for 5 days, then took 1 pill of prednisone for 5 days, then take half a pill of prednisone for 5 days 60 tablet 1 5 Active upadacitinib (Rinvoq) 45 mg tablet extended release 24 hr Take 45 mg by mouth 1 (one) time each day. After 12 weeks, take 15mg daily. 30 tablet 2 5 Active upadacitinib (Rinvoq) 15 mg tablet extended release 24 hr Take 15 mg by mouth 1 (one) time each day. Start after rinvoq 45mg completed. 30 tablet 3 5 Active Active Problems Problem Noted Date Diagnosed Date Crohn's disease of small int estine with fistula ([facility] V24, [facility] V28) 07/15/2024 Encounters Date Type Department Care Team Description 02/20/2025 Telephone Gastroenterology [facility] [address] [phone] Xenia Son PA 02/17/2025 Telephone Gastroenterology [facility] 175 [facility] [address] [phone] Xenia Son PA 02/12/2025 Telephone Gastroenterology [facility] 175 [facility] [address] [phone] Xenia Son PA 02/05/2025 7:40 AM EDT - 02/05/2025 11:59 PM EDT Hospital Encounter [facility] CT Scan [address] [place] [phone] Crohn's disease of small intestine with fistula ([facility] V24, [facility] V28) Discharge Disposition: Home or Self Care 01/28/2025 Telephone Gastroenterology [facility] [address] [place] [address] Xenia Son PA 01/22/2025 Lab Requisition [facility] - Main Lab [address] [facility] [place] [address] Janice Tello NP Urinary tract infection, site not specified; Hematuria, unspecified 01/07/2025 2:50 PM EDT Lab Draw Station - [address] [place] [address] Crohn's disease of small intestine with fistula ([facility] V24, [facility] V28) 01/07/2025 2:00 PM EDT Office Visit Gastroenterology [facility] [address] [place] [address] Xenia Son PA Crohn's disease of small intestine with fistula ([facility] V24, [facility] V28) (Primary Dx) 01/07/2025 Telephone Gastroenterology [facility] [address] [place] [address] Xenia Son PA from Last 3 Months Surgical History Surgery Date Site/Laterality Comments OTHER SURGICAL HISTORY COLONOSCOPY COLON SURGERY Medical History Medical History Date Comments Hyperlipidemia Hypertension Diabetes mellitus ([facility] V24, [facility] V28) Crohn's disease of colon with fistula ([facility] V 24, [facility] V28) Irritable bowel syndrome Anxiety Depression Chronic pain disorder Arthritis Joint pain multtiple Abdominal pain despite thera py for Crohn's disease ([facility] V24, [facility] V28) Social History Tobacco Use Types Packs/Day Years Used Date Smoking Tobacco: Never Smokeless Tobacco: Never Tobacco Cessation:Counseling Given: Not Answered Alcohol Use Standard Drinks/Week Comments Not Currently [...] Orientation Straight 09/11/2024 8: 03 AM EDT Obstetrics History Last Filed Vital Signs Vital Sign Reading Time Taken Comments Blood Pressure 152/76 01/07/2025 1:56 PM EDT Pulse 94 01/07/2025 1:56 PM EDT Temperature 36.5 C (97.7 F) 09/25/2024 12:54 PM EDT Respiratory Rate 18 09/13/2024 8:00 AM EDT Oxygen Saturation 97% 01/07/2025 1:56 PM EDT Inhaled Oxygen Concentration - - Weight 122 kg (269 lb) 01/07/2025 1:56 PM EDT Height 185.4 cm (6' 1 ) 01/07/2025 1:56 PM EDT Body Mass Index 35.49 01/07/2025 1:56 PM EDT Plan of Treatment Upcoming Encounters Date Type Department Care Team (Late st Contact Info) Description 04/13/2025 2:00 PM EDT Office Visit Gastroenterology - [place] [address] [place] [address] Xenia Son PA [address] [place] [address] Health Maintenance Due Date Last Done Comments Diabetes: Annual Foot Exam 09/21/1973 Diabetes: Annual Retina Eye Exam 09/21/1973 DTaP,Tdap,and Td Vaccines (1 - Tdap) 09/21/1982 Zoster Vaccines (1 of 2) 09/21/2013 Hepatitis A Vaccines (2 of 2 - Risk 2-dose series) 04/11/2017 10/10/2016 Hepatitis B Vaccines (3 of 3 - 19+ 3-dose series) 04/11/2017 11/24/2016, 10/10/2016 Pneumococcal Vaccine: 50+ Years (2 of 2 - PCV) 10/10/2017 10/10/2016, 06/20/2006 HIV Screening 06/04/2022 Hepatitis C Screening 06/04/2022 Medicare Annual Wellness Visit 06/04/2022 Social Influencers of Health Screening 06/04/2022 Diabetes: Annual Urine Albumin-Creatinine Ratio (uACR) 05/12/2024 Depression Screening 07/02/2024 COVID-19 Vaccine ( season) 2025 07/30/2021, 11/12/2020, 10/22/2020 Influenza Vaccine (#1) 2025 9, 04/03/2018, 04/11/2016, Additional history exists Diabetes: Blood Sugar Control Test (HGBA1C) 04/18/2025 10/17/2024 Diabetes: Annual GFR (Glomerular Filtration Rate) 01/07/2026 01/07/2025, 10/17/2024, 09/13/2024, Additional history exists Hypertension/CHF/CAD Annual BMP Blood Test 01/07/2026 01/07/2025, 10/17/2024, 09/13/2024, Additional history exists Cholesterol Screening (Lipid Panel) 10/17/2029 10/17/2024 Colorectal Cancer Screening: Colonoscopy 01/11/2033 01/11/2023 RSV Immunization Adult Patients (1 - 1-dose 75+ series) 09/21/2038 HIB Vaccines Aged Out No longer eligi ble based on patient's age to complete this topic HPV Vaccines Aged Out No longer eligi ble based on patient's age to complete this topic IPV Vaccines Aged Out No longer eligi ble based on patient's age to complete this topic MMR Vaccines Aged Out No longer eligi ble based on patient's age to complete this topic Meningococcal ACWY Vaccine Aged Out N o longer eligible based on patient's age to complete this topic Meningococcal B Vaccine Aged Out No l onger eligible based on patient's age to complete this topic RSV Immunization Patients Under 20 months Aged Out No longer eligible based on patient's age to complete this topic Varicella Vaccines Aged Out No longer eligible based on patient's age to complete this topic Procedures Procedure Name Priority Date/Time Associated Diagnosis Comments CT ABDOMEN PELVIS W CONTRAST Routine 02/05/2025 8:01 AM EDT Crohn's disease of small intestine with fistula ([facility] V24, [facility] V28) URINALYSIS WITH REFLEX MICROSCOPIC Routine 01/22/2025 9:00 AM EDT Urinary tract infection, site not specified Hematuria, unspecified URINALYSIS WITH REFLEX MICROSCOPIC Routine 01/22/2025 9:00 AM EDT Urinary tract infection, site not specified Hematuria, unspecified CULTURE URINE Routine 01/22/2025 9:00 AM EDT Urinary tract infection, site not specified Hematuria, unspecified CBC WITH AUTO DIFFERENTIAL Routine 01/09/2025 2:39 PM EDT GABBIE (generalized anxiety disorder) Crohn disease (CMS/HCC V24, CMS/HCC V28) Urine frequency Myalgia IRON AND TIBC Routine 01/09/2025 2:39 PM EDT GABBIE (generalized anxiety disorder) Crohn disease (CMS/HCC V24, CMS/HCC V28) Urine frequency Myalgia FERRITIN Routine 01/09/2025 2:39 PM EDT GABBIE (generalized anxiety disorder) Crohn disease (CMS/HCC V24, CMS/HCC V28) Urine frequency Myalgia RETICULOCYTE COUNT Routine 01/09/2025 2: 39 PM EDT GABBIE (generalized anxiety disorder) Crohn disease (CMS/HCC V24, CMS/HCC V28) Urine frequency Myalgia CBC AND DIFFERENTIAL Routine 01/09/2025 2:39 PM EDT GABBIE (generalized anxiety disorder) Crohn disease (CMS/HCC V24, CMS/HCC V28) Urine frequency Myalgia PROSTATE SPECIFIC ANTIGEN SCREEN Routine 01/09/2025 2:39 PM EDT GABBIE (generalized anxiety disorder) Crohn disease (CMS/HCC V24, CMS/HCC V28) Urine frequency Myalgia Encounter for screening for malignant neoplasm of prostate CREATINE KINASE Routine 01/09/2025 2:39 PM EDT GABBIE (generalized anxiety disorder) Crohn disease (CMS/HCC V24, CMS/HCC V28) Urine frequency Myalgia INTERFERON GAMMA INTERPRETATION Routine 01/07/2025 2:50 PM EDT Crohn's disease of small intestine with fistula (CMS/HCC V24, CMS/HCC V28) CBC WITH AUTO DIFFERENTIAL Routine 01/07/2025 2:50 PM EDT Crohn's disease of small intestine with fistula (CMS/HCC V24, CMS/HCC V28) INTERFERON GAMMA ANTIGEN 2 Routine 01/07/2025 2:50 PM EDT Crohn's disease of small intestine with fistula (CMS/HCC V24, CMS/HCC V28) INTERFERON GAMMA ANTIGEN 1 Routine 01/07/2025 2:50 PM EDT Crohn's disease of small intestine with fistula (CMS/HCC V24, CMS/HCC V28) INTERFERON GAMMA MITOGEN Routine 01/07/2025 2:50 PM EDT Crohn's disease of small intestine with fistula (CMS/HCC V24, CMS/HCC V28) INTERFERON GAMMA NIL Routine 01/07/2025 2:50 PM EDT Crohn's disease of small intestine with fistula (CMS/HCC V24, CMS/HCC V28) CBC AND DIFFERENTIAL Routine 01/07/2025 2:50 PM EDT Crohn's disease of small intestine with fistula (CMS/HCC V24, CMS/HCC V28) COMPREHENSIVE METABOLIC PANEL Routine 01/07/2025 2:50 PM EDT Crohn's disease of small intestine with fistula (CMS/HCC V24, CMS/HCC V28) INTERFERON GAMMA FOR TB, QUALITATIVE Routine 01/07/2025 2:50 PM EDT Crohn's disease of small intestine with fistula (CMS/HCC V24, CMS/HCC V28) HEPATITIS B E ANTIBODY Routine 2:50 PM EDT Crohn's disease of small intestine with fistula (CMS/HCC V24, CMS/HCC V28) HEPATITIS B E ANTIGEN Routine 01/07/2025 2:50 PM EDT Crohn's disease of small intestine with fistula (CMS/HCC V24, CMS/HCC V28) C-REACTIVE PROTEIN Routine 01/07/2025 2: 50 PM EDT Crohn's disease of small intestine with fistula (CMS/HCC V24, CMS/HCC V28) HEMOGLOBIN A1C Routine 10/17/2024 2:48 PM EDT HTN (hypertension) HLD (hyperlipidemia) DM (diabetes mellitus) (CMS/HCC V24, CMS/HCC V28) LIPID PANEL WITH REFLEX TO DIRECT LDL Routine 10/17/2024 2:48 PM EDT HTN (hypertension) HLD (hyperlipidemia) DM (diabetes mellitus) (CMS/HCC V24, CMS/HCC V28) from Last 3 Months or Most Recently Relevant to Health Maintenance Results * CT Abdomen Pelvis w Contrast (02/05/2025 8:01 AM EDT) Anatomical Region Laterality Modality Body Computed Tomogra phy 02/05/2025 3:57 PM EDT Impressions 02/05/2025 4:07 PM EDT Postsurgical abdomen. No significant abnormality. -------- FINAL REPORT -------- Dictated By: Huy Franklin Dictated Date: 02/05/2025 15:57 ET Assigned Physician: Huy Franklin Reviewed and Electronically Signed By: Huy Franklin Signed Date: 02/05/2025 16:07 ET Workstation ID: [id number] Transcribed By: Self Edit Transcribed Date: 02/05/2025 15:57 ET Narrative 02/05/2025 4:07 PM EDT PROCEDURE: CT ABDOMEN/PELVIS WITH CONTRAST INDICATION: Crohn's dz with complications TECHNIQUE: CT of the abdomen and pelvis following the intravenous administration of 90cc Isovue 370. Multiplanar reformats. The examination was performed utilizing dose reduction techniques. Total DLP 2024 COMPARISON: 05/13/24. FINDINGS: LOWER THORAX: Lung bases are clear. HEPATOBILIARY: No focal liver lesions. No cholelithiasis or biliary duct dilatation. SPLEEN: No focal lesion. PANCREAS: No focal mass or ductal dilatation. ADRENALS: No nodules. KIDNEYS/URETERS: No hydronephrosis, stones, or solid mass. PELVIC ORGANS/BLADDER: Unremarkable. PERITONEUM / RETROPERITONEUM: No ascites or free air. No retroperitoneal lymphadenopathy. VESSELS: Scattered atherosclerotic calcifications throughout the aorta and its major branches. No aneurysm. GI TRACT: Postsurgical changes of ileocolic bowel resection with anastomosis in the right hemiabdomen. No residual fistula or fluid collection. No acute infectious or inflammatory process. BONES AND SOFT TISSUES: Scattered degenerative changes seen throughout the bones. Soft tissues are unremarkable. Procedure Note Huy Franklin MD - 02/05/2025 PROCEDURE: CT ABDOMEN/PELVIS WITH CONTRAST INDICATION: Crohn's dz with complications TECHNIQUE: CT of the abdomen and pelvis following the intravenousadministration of 90cc Isovue 370. Multiplanar reformats. The examinationwas performed utilizing dose reduction techniques. Total DLP 2024 COMPARISON: 05/13/24. FINDINGS: LOWER THORAX: Lung bases are clear. HEPATOBILIARY: No focal liver lesions. No cholelithiasis or biliary ductdilatation. SPLEEN: No focal lesion. PANCREAS: No focal mass or ductal dilatation. ADRENALS: No nodules. KIDNEYS/URETERS: No hydronephrosis, stones, or solid mass. PELVIC ORGANS/BLADDER: Unremarkable. PERITONEUM / RETROPERITONEUM: No ascites or free air. No retroperitoneallymphadenopathy. VESSELS: Scattered atherosclerotic calcifications throughout the aorta andits major branches. No aneurysm. GI TRACT: Postsurgical changes of ileocolic bowel resection withanastomosis in the right hemiabdomen. No residual fistula or fluidcollection. No acute infectious or inflammatory process. BONES AND SOFT TISSUES: Scattered degenerative changes seen throughout thebones. Soft tissues are unremarkable. IMPRESSION: Postsurgical abdomen. No significant abnormality. -------- FINAL REPORT -------- Dictated By: Huy Franklin Dictated Date: 02/05/2025 15:57 ET Assigned Physician: Huy Franklin Reviewed and Electronically Signed By: Huy Franklin Signed Date: 02/05/2025 16:07 ET Workstation ID: [id number] Transcribed By: Self Edit Transcribed Date: 02/05/2025 15:57 ET Xenia RUTH IM CT PROCEDURES Final Resul t * (ABNORMAL) Urinalysis with reflex microscopic (01/22/2025 9:00 AM ED) Specific [place] Urine 1.030 1.003 - 1.030 LAB URINALYSIS - AUTOMATED METHOD 01/22/2025 1:[address] [facility] pH, Urine 5.5 5.0 - 8.0 pH LAB URINALYSIS - AUTOMATED METHOD 01/22/2025 1:[address] [facility] Leukocytes, Urine Negative Negative LAB URINALYSIS - AUTOMATED METHOD 01/22/2025 1:[address] [facility] Nitrite, Urine Negative Negative LAB URINALYSIS - AUTOMATED METHOD 01/22/2025 1:[address] [facility] Protein, Urine 30(A) <=Trace mg/dL LAB URINALYSIS - AUTOMATED METHOD 01/22/2025 1:[address] [facility] Glucose, Urine Negative Negative mg/dL LAB URINALYSIS - AUTOMATED METHOD 01/22/2025 1:[address] [facility] Ketones, Urine Trace(A) Negative mg/dL LAB URINALYSIS - AUTOMATED METHOD 01/22/2025 1:[address] [facility] Urobilinogen, Urine 1.0 0.2 - 1.0 mg/dL LAB URINALYSIS - AUTOMATED METHOD 01/22/2025 1:[address] [facility] Bilirubin, Urine Negative Negative LAB URINALYSIS - AUTOMATED METHOD 01/22/2025 1:[address] [facility] Blood, Urine Negative Negative LAB URINALYSIS - AUTOMATED METHOD 01/22/2025 1:[address] [facility] RBC, Urine 1.3 0 - 4 /HPF LAB URINALYSIS - AUTOMATED METHOD 01/22/2025 1:[address] [facility] WBC, Urine 1.0 0 - 4 /HPF LAB URINALYSIS - AUTOMATED METHOD 01/22/2025 1:06 PM EDT [facility] Squamous Epithelial, Urine 12 0 - 60 /LPF LAB URINALYSIS - AUTOMATED METHOD 01/22/2025 1:06 PM EDT [facility] Bacteria, Urine Negative Negative /HPF LAB URINALYSIS - AUTOMATED METHOD 01/22/2025 1:06 PM EDT [facility] Hyaline Casts, Urine 0.8 0 - 3 /LPF LAB URINALYSIS - AUTOMATED METHOD 01/22/2025 1:06 PM EDT [facility] Urine Urine specimen obtained by clean catch procedure / Unknown 01/22/2025 9:00 AM EDT 01/22/2025 11:06 AM EDT us Camacho Tello [employer]END[employer] LAB URINE ORDERABLES Final Resul t Performing Organization Address City/[facility]/ZIP Co de Phone Number [facility] [address] [place] [address], * Culture urine (01/22/2025 9:00 AM EDT) Culture, Urine <10,000 CFU/mL gram positive cocci, insignificant count, no further workup 01/23/2025 7:44 AM EDT [facility] Urine Urine specimen obtained by clean catch procedure / Unknown 01/22/2025 9:00 AM EDT 01/22/2025 11:06 AM EDT us Camacho Tello BLENDER HELPER LAB MICROBIOLOGY - GENERAL ORDER [place] Final Result [facility] [address] [place] [address], [place] [phone] * Prostate specific antigen screen (01/09/2025 2:39 PM EDT) PSA 1.23 0.00 - 4.00 ng/mL LAB CHEMISTRY METHOD [facility] Blood Venous blood specimen / Unknown Venipuncture / Unknown 01/09/2025 2:39 PM EDT 01/09/2025 2:39 PM EDT Narrative [facility] - 01/09/2025 7:50 PM EDT The Siemens Advia Centaur Chemiluminescent Immunoassay is used. Results obtained with different assay methods or kits cannot be used interchangeably. Results cannot be interpreted as absolute evidence of the presence or absence of malignant disease. us Camacho Tello BLEND[employer] HEL[employer] LAB BLOOD ORDERABLES Final Resul t [facility] [address] [place] [address], [place] [phone] * (ABNORMAL) CBC auto differential (01/09/2025 2:39 PM EDT) Only the most recent of2 resultswithin the time period is included. WBC 9.1 4.8 - 10.8 K/mcL LAB HEMETOLOGY METHOD 01/09/2025 7:32 PM EDT [facility] RBC 4.30(L) 4.50 - 5.50 M/mcL LAB HEMETOLOGY METHOD 01/09/2025 7:32 PM EDT [facility] Hemoglobin 12.3(L) 13.5 - 17.5 g/dL LAB HEMETOLOGY METHOD 01/09/2025 7:32 PM EDT [facility] Hematocrit 37.6(L) 42.0 - 54.0 % LAB HEMETOLOGY METHOD 01/09/2025 7:32 PM EDT [facility] MCV 88.3 79.0 - 98.0 FL LAB HEMETOLOGY METHOD 01/09/2025 7:32 PM EDT [facility] MCH 28.9 27.0 - 32.0 pcg LAB HEMETOLOGY METHOD 01/09/2025 7:32 PM EDT [facility] MCHC 32.7 32.0 - 37.0 g/dL LAB HEMETOLOGY METHOD 01/09/2025 7:[facility] RDW 14.5 11.0 - 15.0 % LAB HEMETOLOGY METHOD 01/09/2025 7:32 [facility] Platelets 286 130 - 400 K/mcL LAB HEMETOLOGY METHOD 01/09/2025 7:32 [facility] MPV 10.1 7.0 - 11.0 FL LAB HEMETOLOGY METHOD 01/09/2025 7:32 [facility] NRBC 0.0 <1.0 % LAB HEMETOLOGY METHOD 01/09/2025 7:[address] [facility] NRBC Absolute 0.00 <0.10 K/mcL LAB HEMETOLOGY METHOD 01/09/2025 7:[address] [facility] Neutrophils Relative 65.3 % LAB HEMETOLOGY METHOD 01/09/2025 7:[address] [facility] Lymphocytes Relative 25.6 % LAB HEMETOLOGY METHOD 01/09/2025 7:[address] [facility] Monocytes Relative 7.1 % LAB HEMETOLOGY METHOD 01/09/2025 7:[address] [facility] Eosinophils Relative 0.9 % LAB HEMETOLOGY METHOD 01/09/2025 7:[address] [facility] Basophils Relative 0.8 % LAB HEMETOLOGY METHOD 01/09/2025 7:[address] [facility] Immature Granulocytes Relative 0.3 % LAB HEMETOLOGY METHOD 01/09/2025 7:[address] [facility] Neutrophils Absolute 5.95 1.50 - 7.00 K/mcL LAB HEMETOLOGY METHOD 01/09/2025 7:[address] [facility] Lymphocytes Absolute 2.33 1.00 - 5.00 K/mcL LAB HEMETOLOGY METHOD 01/09/2025 7:32 PM EDT [facility] Monocytes Absolute 0.65 0.20 - 1.00 K/[facility] LAB HEMETOLOGY METHOD 01/09/2025 7:32 PM EDT [facility] Eosinophils Absolute 0.08 0.00 - 0.50 K/[facility] LAB HEMETOLOGY METHOD 01/09/2025 7:32 PM EDT [facility] Basophils Absolute 0.07 0.00 - 0.20 K/[facility] LAB HEMETOLOGY METHOD 01/09/2025 7:32 PM EDT [facility] Immature Granulocytes Absolute 0.03 0.00 - 0.03 K/[facility] LAB HEMETOLOGY METHOD 01/09/2025 7:32 PM EDT [facility] Blood Venous blood specimen / Unknown Venipuncture / Unknown 01/09/2025 2:39 PM EDT 01/09/2025 2:39 PM EDT us Camcaho Tello BLEND[employer] HEL[employer] LAB BLOOD ORDERABLES Final Resul t [facility] [address] [place] [address], * Iron and TIBC (01/09/2025 2:39 PM EDT) Iron 146 50 - 160 mcg/dL LAB CHEMISTRY METHOD 01/09/2025 7:41 PM EDT [facility] TIBC 299 250 - 450 mcg/dL LAB CHEMISTRY METHOD 01/09/2025 7:41 PM EDT [facility] Iron Saturation 49 20 - 50 % LAB CHEMISTRY METHOD 01/09/2025 7:41 PM EDT [facility] Blood Venous blood specimen / Unknown Venipuncture / Unknown 01/09/2025 2:39 PM EDT 01/09/2025 2:39 PM EDT Camacho Tello BLENDER HELPER LAB BLOOD ORDERABLES Final Resul t Performing Organization Address [facility]/[place]UST de Phone Number [facility] [address] [place] [address], [place] [phone] * (ABNORMAL) Reticulocyte count (01/09/2025 2:39 PM EDT) Retic Ct Abs 0.100(H) 0.030 - 0.090 M/mcL LAB HEMETOLOGY METHOD 01/09/2025 7:32 PM EDT [facility] Retic Ct Pct 2.3(H) 0.7 - 1.7 % LAB HEMETOLOGY METHOD 01/09/2025 7:32 PM EDT [facility] Immature Retic Fract 11.8 2.3 - 15.9 % LAB HEMETOLOGY METHOD 01/09/2025 7:32 PM EDT [facility] Reticulocyte Hemoglobin 34.6 >29.0 pcg LAB HEMETOLOGY METHOD 01/09/2025 7:32 PM EDT [facility] Blood Venous blood specimen / Unknown Venipuncture / Unknown 01/09/2025 2:39 PM EDT 01/09/2025 2:39 PM EDT Janice Tello BLENDER HELPER LAB BLOOD ORDERABLES Final Resul t Performing Organization Address City/[facility]/ZIP Ar de Phone Number [facility] [address] [place] [address], [place] [phone] * Ferritin (01/09/2025 2:39 PM EDT) Ferritin 124 26 - 388 ng/mL LAB CHEMISTRY METHOD 01/09/2025 7:41 PM EDT [facility] Blood Venous blood specimen / Unknown Venipuncture / Unknown 01/09/2025 2:39 PM EDT 01/09/2025 2:39 PM EDT us Janice Tello BLENDER HELPER LAB BLOOD ORDERABLES Final Resul t Performing Organization Address [facility]/ZIP Co de Phone Number [facility] [address] [place] [address], [place] [phone] * Creatine kinase (01/09/2025 2:39 PM EDT) Pathologist [facility] Total CK 123 22 - 269 unit/L LAB CHEMISTRY METHOD 01/09/2025 7:41 PM EDT [facility] Blood Venous blood specimen / Unknown Venipuncture / Unknown 01/09/2025 2:39 PM EDT 01/09/2025 2:39 PM EDT us Janice Tello BLENDER HELPER LAB BLOOD ORDERABLES Final Resul t Performing Organization Address [facility] de Phone Number [facility] [address] [place] [address], [place] [phone] * Interferon gamma interpretation (01/07/2025 2:50 PM EDT) [facility] Quantiferon Plus Interpretation Negative Negative LAB CHEMISTRY METHOD 01/09/2025 10:51 AM EDT [facility] Blood Venous blood specimen / Unknown Venipuncture / Unknown 01/07/2025 2:50 PM EDT 01/07/2025 2:50 PM EDT us Xenia RUTH LAB BLOOD ORDERABLES Final Re sult Performing Organization Address [facility]/ZIP Co de Phone Number [facility] [address] [place] [address], [place] [phone] * Interferon gamma antigen 2 (01/07/2025 2:50 PM EDT) Blood Venous blood specimen / Unknown Venipuncture / Unknown 01/07/2025 2:50 PM EDT 01/07/2025 2:50 PM EDT us Xenia RUTH LAB BLOOD ORDERABLES Final Re sult Performing Organization Address City/[facility]/ZIP Co de Phone Number [facility] [address] [place] [address], [place] [phone] * Interferon gamma antigen 1 (01/07/2025 2:50 PM EDT) Blood Venous blood specimen / Unknown Venipuncture / Unknown 01/07/2025 2:50 PM EDT 01/07/2025 2:50 PM EDT us Xenia RUTH LAB BLOOD ORDERABLES Final Re sult Performing Organization Address [facility] Co de Phone Number [facility] [address] [place] [address], [place] [phone] * Interferon gamma mitogen (01/07/2025 2:50 PM EDT) Blood Venous blood specimen / Unknown Venipuncture / Unknown 01/07/2025 2:50 PM EDT 01/07/2025 2:50 PM EDT Xenia RUTH LAB BLOOD ORDERABLES Final Re sult Performing Organization Address [facility] Co de Phone Number [facility] [address] [place] [address], [place] [phone] * Interferon gamma NIL (01/07/2025 2:50 PM EDT) Blood Venous blood specimen / Unknown Venipuncture / Unknown 01/07/2025 2:50 PM EDT 01/07/2025 2:50 PM EDT us Xenia RUTH LAB BLOOD ORDERABLES Final Re sult Performing Organization Address [facility]/ZIP Co de Phone Number [facility] [address] [place] [address], [place] [phone] * Hepatitis B e antibody (01/07/2025 2:50 PM EDT) Hepatitis Be Antibody Nonreactive Nonreactive 01/10/2025 6:34 AM EDT [facility] Comment: Test performed at [facility], [address] [place] [address] Adela Jung MD, PhD - Geodesy Teacher Blood Venous blood specimen / Unknown Venipuncture / Unknown 01/07/2025 2:50 PM EDT 01/07/2025 2:50 PM EDT us Xenia Huy PA LAB BLOOD ORDERABLES Final Re sult [facility] [address] [place] [address] * Hepatitis B e antigen (01/07/2025 2:50 PM EDT) Pathologist [facility] Hepatitis Be Antigen Nonreactive Nonreactive 01/10/2025 6:34 AM EDT [facility] Comment: Test performed at [facility], [address] [place] [address] Adela Jung MD, PhD - Geodesy Teacher Blood Venous blood specimen / Unknown Venipuncture / Unknown 01/07/2025 2:50 PM EDT 01/07/2025 2:50 PM EDT us Xeniaaniya Son PA LAB BLOOD ORDERABLES Final Re sult [facility] [address] [place] [address] * C-reactive protein (01/07/2025 2:50 PM EDT) Pathologist [facility] C-Reactive Protein <0.29 <=0.50 mg/dL LAB CHEMISTRY METHOD 01/07/2025 7:00 PM EDT [facility] Blood Venous blood specimen / Unknown Venipuncture / Unknown 01/07/2025 2:50 PM EDT 01/07/2025 2:50 PM EDT us Xenia RUTH LAB BLOOD ORDERABLES Final Re sult [facility] [address] [place] [address], [place] [phone] * (ABNORMAL) Comprehensive metabolic panel (01/07/2025 2:50 PM EDT) Sodium 136 133 - 145 mmol/L LAB CHEMISTRY METHOD 01/07/2025 7:[address] [facility] Potassium 4.0 3.5 - 5.5 mmol/L LAB CHEMISTRY METHOD 01/07/2025 7:[address] [facility] Chloride 102 96 - 110 mmol/L LAB CHEMISTRY METHOD 01/07/2025 7:[address] [facility] CO2 23 21 - 32 mmol/L LAB CHEMISTRY METHOD 01/07/2025 7:[address] [facility] Anion Gap 11 3 - 11 LAB CHEMISTRY METHOD 01/07/2025 7:[address] [facility] Glucose 199(H) 70 - 100 mg/dL LAB CHEMISTRY METHOD 01/07/2025 7:[address] [facility] BUN 13 5 - 25 mg/dL LAB CHEMISTRY METHOD 01/07/2025 7:[address] [facility] Creatinine 1.12 0.70 - 1.30 mg/dL LAB CHEMISTRY METHOD 01/07/2025 7:[address] [facility] eGFR 75 >=60 mL/min/1. 73m2 LAB CHEMISTRY METHOD 01/07/2025 7:[address] [facility] Comment:Calculation based on the Chronic Kidney Disease Epidemiology Collaboration (CKD-EPI) equation refit without adjustment for race. BUN/Creatinine Ratio 11.6 LAB CHEMISTRY METHOD 01/07/2025 7:[address] [facility] Calcium 9.9 8.5 - 10.5 mg/dL LAB CHEMISTRY METHOD 01/07/2025 7:24 PM EDT [facility] AST (SGOT) 14 10 - 42 unit/L LAB CHEMISTRY METHOD 01/07/2025 7:24 PM EDT [facility] ALT (SGPT) 27 10 - 60 unit/L LAB CHEMISTRY METHOD 01/07/2025 7:24 PM EDT [facility] Alkaline Phosphatase 86 42 - 121 unit/L LAB CHEMISTRY METHOD 01/07/2025 7:24 PM EDT [facility] Total Protein 7.8 6.0 - 8.0 g/dL LAB CHEMISTRY METHOD 01/07/2025 7:[address] [facility] Albumin 3.9 3.2 - 5.0 g/dL LAB CHEMISTRY METHOD 01/07/2025 7:[address] [facility] Total Bilirubin 0.4 0.0 - 1.4 mg/dL LAB CHEMISTRY METHOD 01/07/2025 7:24 PM T [facility] Blood Venous blood specimen / Unknown Venipuncture / Unknown 01/07/2025 2:50 PM EDT 01/07/2025 2:50 PM EDT Xenia RUTH LAB BLOOD ORDERABLES Final Re sult [facility] [address] [place] [address], * Lipid panel with reflex to direct LDL (10/17/2024 2:48 PM EDT) Cholesterol 98 0 - 200 mg/dL LAB CHEMISTRY METHOD 10/17/2024 8:13 PM EDT [facility] Triglycerides 89 0 - 150 mg/dL LAB CHEMISTRY METHOD 10/17/2024 8:13 PM EDT [facility] HDL 51 >=40 mg/dL LAB CHEMISTRY METHOD 10/17/2024 8:13 PM EDT [facility] LDL Calculated 29 0 - 100 mg/dL LAB CHEMISTRY METHOD 10/17/2024 8:13 PM EDT [facility] VLDL Cholesterol Rajeev 17.8 mg/dL LAB CHEMISTRY METHOD 10/17/2024 8:13 PM EDT [facility] Non HDL Chol. (LDL+VLDL) 47 <145 mg/dL LAB CHEMISTRY METHOD 10/17/2024 8:13 PM EDT [facility] Chol/HDL Ratio 1.9 0.0 - 4.4 LAB CHEMISTRY METHOD 10/17/2024 8:13 PM EDT [facility] Blood Venous blood specimen / Unknown Venipuncture / Unknown 10/17/2024 2:48 PM EDT 10/17/2024 2:48 PM EDT us Camacho Tello BLENDER HELPER LAB BLOOD ORDERABLES Final Resul t Performing Organization Address City/[facility]/ZIP Co de Phone Number [facility] [address] [place] [address], [place] [phone] * Hemoglobin A1c (10/17/2024 2:48 PM EDT) Hemoglobin A1C 6.0 <6.5 % LAB CHEMISTRY METHOD 10/17/2024 9:34 PM EDT [facility] Mean Bld Glu Estim. 126 mg/dL LAB CHEMISTRY METHOD 10/17/2024 9:34 PM EDT [facility] Blood Venous blood specimen / Unknown Venipuncture / Unknown 10/17/2024 2:48 PM EDT 10/17/2024 2:48 PM EDT us Camacho Tello BLENDER HELPER LAB BLOOD ORDERABLES Final Resul t Performing Organization Address City/[facility]/ZIP Co de Phone Number [facility] [address] [place] [address], [place] [phone] from Last 3 Months or Most Recently Relevant to Health Maintenance Insurance [place]ICA[place] MEDICARE [facility] eTax Credit Exchange PLAN Care Teams Director Learning Services Relationship Specialty Start Date End Date Mo Magana DO [address] [place] [phone] PCP - General 08/14/22
== END 2025-03-17 15:50 | disposition home or self-care (01) ==
LOC: HO.HOS 14:45
PROVIDERS: PCP Internal Medicine; Visit Provider Orthopaedic Surgery
DX: M25.512 Pain in left shoulder (principal); M54.2 Cervicalgia
CPT/HCPCS: 99203; G2211

== ENCOUNTER 2025-04-03 13:45 | Outpatient (REF) | payer MEDICARE, MEDICAID, SELFPAY ==
--- NOTE | ~2025-04-03 | XR_ITS ---
EXAMINATION: XR ORBITS CLINICAL INFORMATION: Rule out metal to the eyes, pre MRI orbits. COMPARISON: None available. TECHNIQUE: 3 views of the orbits were obtained. FINDINGS: There is no radiopaque foreign body in either orbit or the soft tissues of the head. The orbits are intact. The paranasal sinuses are normally pneumatized without gross opacity or air-fluid level. The nasal septum is midline. The mastoids are aerated grossly. The sella is normal in size. No bone lesions. No soft tissue abnormality. XR/XR Orbits For Foreign Body IMPRESSION: No radiopaque foreign body in the orbits. Electronically signed by: Bhavesh Saravia MD 04/03/2025 02:24 PM EDT
--- NOTE | ~2025-04-03 | XR_ITS ---
Exam: X-ray, bilateral knees.XR KNEE 3 VIEWS BILATERAL TECHNIQUE: Three views lower extremity joint, bilateral knees INDICATION: bilateral knee pain COMPARISON: June 06, 2024 FINDINGS: RIGHT KNEE: Again seen is deformity of the proximal fibular head likely from a remote fracture. There is moderate to severe narrowing of the medial compartment, similar to the prior. There is subchondral sclerosis and degenerative cystic change along the medial joint line. There are tricompartmental osteophytes. 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 There is chondrocalcinosis in the medial and lateral joint lines. There is no joint effusion. LEFT KNEE: There is moderate narrowing of the medial compartment similar to the prior. There is subtle lateral patellar tilt. There is chondrocalcinosis involving patellofemoral, medial, and lateral joint spaces. There are small tricompartmental marginal osteophytes. There is no joint effusion. 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 Similar to study one year ago Left knee: Moderate osteoarthritis secondary to CPPD arthropathy appears similar to x-ray from one year ago. Electronically signed by: Tno De La Rosa MD 04/03/2025 02:28 PM EDT
--- NOTE | ~2025-04-03 | XR_ITS ---
EXAMINATION: XR SHOULDER, LEFT CLINICAL INFORMATION: M25.512 - Pain in left shoulder COMPARISON: None available. TECHNIQUE: Four views of the left shoulder. FINDINGS: Mild to moderate degenerative changes are present in the AC joint. Glenohumeral joint demonstrates small medium sized marginal osteophytes in the inferior joint. There is no dislocation or AC joint separation. XR/XR shoulder LT min 2V IMPRESSION: Mild to moderate degenerative changes involving A.C. and glenohumeral joints. Electronically signed by: Ton De La Rosa MD 04/03/2025 02:23 PM EDT
--- OUTSIDE RECORDS SUMMARY | 2025-04-03 13:58 | XMS_ITS | Clinical Summary ---
Author Organization [facility] Address [address] [place] [address] Phone Care Team Providers [facility] Worker Name Role Phone Eliebertin Mo Primary Care Provider [phone] Allergies Active Allergy Reactions Criticality Noted Date [...] disease of small int estine with fistula ([facility] V24, [facility] V28) 07/15/2024 Encounters Date Type Department Care Team Description 02/20/2025 Telephone Gastroenterology [facility] [address] [phone] Xenia Son PA 02/17/2025 Telephone Gastroenterology [facility] 175 [facility] [address] [phone] Xenia Son PA 02/12/2025 Telephone Gastroenterology [facility] 175 [facility] [address] [phone] Xenia Son PA 02/05/2025 7:40 AM EDT - 02/05/2025 11:59 PM EDT Hospital Encounter [facility] CT Scan [address] [place] [phone] Crohn's disease of small intestine with fistula ([facility] V24, [facility] V28) Discharge Disposition: Home or Self Care 01/28/2025 Telephone Gastroenterology [facility] [address] [place] [address] Xenia Son PA 01/22/2025 Lab Requisition [facility] - Main Lab [address] [facility] [place] [address] Janice Tello NP Urinary tract infection, site not specified; Hematuria, unspecified 01/07/2025 2:50 PM EDT Lab Draw Station - [address] [place] [address] Crohn's disease of small intestine with fistula ([facility] V24, [facility] V28) 01/07/2025 2:00 PM EDT Office Visit Gastroenterology [facility] [address] [place] [address] Xenia Son PA Crohn's disease of small intestine with fistula ([facility] V24, [facility] V28) (Primary Dx) 01/07/2025 Telephone Gastroenterology [facility] [address] [place] [address] Xenia Son PA from Last 3 Months Surgical History Surgery Date Site/Laterality Comments OTHER SURGICAL HISTORY COLONOSCOPY COLON SURGERY Medical History Medical History Date Comments Hyperlipidemia Hypertension Diabetes mellitus ([facility] V24, [facility] V28) Crohn's disease of colon with fistula ([facility] V 24, [facility] V28) Irritable bowel syndrome Anxiety Depression Chronic pain disorder Arthritis Joint pain multtiple Abdominal pain despite thera py for Crohn's disease ([facility] V24, [facility] V28) Social History Tobacco Use Types Packs/Day Years Used Date Smoking Tobacco: Never Smokeless Tobacco: Never Tobacco Cessation:Counseling Given: Not Answered Alcohol Use Standard Drinks/Week Comments Not Currently 0 (1 standard drink = 0.6 oz pur e alcohol) Interpersonal Safety Answer Date Record ed Physical Abuse Unrecognized value 09/11/2024 Verbal Abuse Unrecognized value 09/11/2024 Sex and Gender Information Value Date [...] 2:00 PM EDT Office Visit Gastroenterology - [place] [address] [facility] [address] [place] [phone] Xenia Son PA [address] [facility] [address] [place] [address] Health Maintenance Due Date Last Done Comments [...] Crohn's disease of small intestine with fistula ([facility] V24, [facility] V28) URINALYSIS WITH REFLEX MICROSCOPIC Routine 01/22/2025 [...] Signed Date: 02/05/2025 16:07 ET Workstation ID: [id number] Transcribed By: Self Edit Transcribed Date: 02/05/2025 [...] Signed Date: 02/05/2025 16:07 ET Workstation ID: [id number] Transcribed By: Self Edit Transcribed Date: 02/05/2025 15:57 ET [address] RUTH IMG CT PROCEDURES Final Resul t * (ABNORMAL) Urinalysis with reflex microscopic (01/22/2025 9:00 AM EDT) Specific [place] Urine 1.030 1.003 - 1.030 LAB URINALYSIS - AUTOMATED METHOD 01/22/2025 1:06 PM [facility] pH, Urine 5.5 5.0 - 8.0 pH LAB URINALYSIS - AUTOMATED METHOD 01/22/2025 1:06 PM [facility] Leukocytes, Urine Negative Negative LAB URINALYSIS - AUTOMATED METHOD 01/22/2025 1:06 PM [facility] Nitrite, Urine Negative Negative LAB URINALYSIS - AUTOMATED METHOD 01/22/2025 1:06 PM [facility] Protein, Urine 30(A) <=Trace mg/dL LAB URINALYSIS - AUTOMATED METHOD 01/22/2025 1:06 PM [facility] Glucose, Urine Negative Negative mg/dL LAB URINALYSIS - AUTOMATED METHOD 01/22/2025 1:06 PM [facility] Ketones, Urine Trace(A) Negative mg/dL LAB URINALYSIS - AUTOMATED METHOD 01/22/2025 1:06 PM [facility] Urobilinogen, Urine 1.0 0.2 - 1.0 mg/dL LAB URINALYSIS - AUTOMATED METHOD 01/22/2025 1:06 PM [facility] Bilirubin, Urine Negative Negative LAB URINALYSIS - AUTOMATED METHOD 01/22/2025 1:06 PM [facility] Blood, Urine Negative Negative LAB URINALYSIS - AUTOMATED METHOD 01/22/2025 1:06 PM [facility] RBC, Urine 1.3 0 - 4 /HPF LAB URINALYSIS - AUTOMATED METHOD 01/22/2025 1:06 PM [facility] WBC, Urine 1.0 0 - 4 /HPF LAB URINALYSIS - AUTOMATED METHOD 01/22/2025 1:06 PM EDT [facility] Squamous Epithelial, Urine 12 0 - 60 /LPF LAB URINALYSIS - AUTOMATED METHOD 01/22/2025 1:06 PM EDT [facility] Bacteria, Urine Negative Negative /HPF LAB URINALYSIS - AUTOMATED METHOD 01/22/2025 1:06 PM EDT [facility] Hyaline Casts, Urine 0.8 0 - 3 /LPF LAB URINALYSIS - AUTOMATED METHOD 01/22/2025 1:06 PM EDT [facility] Urine Urine specimen obtained by clean catch procedure / Unknown 01/22/2025 9:00 AM EDT 01/22/2025 11:06 AM EDT us Janice Tello CASING MACHINE OPERATOR LAB URINE ORDERABLES Final Resul t Performing Organization Address City/[facility]/ZIP Co de Phone Number [facility] [address] [place] [address], [place] [phone] * Culture urine (01/22/2025 9:00 AM EDT) Culture, Urine <10,000 CFU/mL gram positive cocci, insignificant count, no further workup 01/23/2025 7:44 AM EDT [facility] Urine Urine specimen obtained by clean catch procedure / Unknown 01/22/2025 9:00 AM EDT 01/22/2025 11:06 AM EDT us Camacho Tello CASING MACHINE OPERATOR LAB MICROBIOLOGY - GENERAL ORDER [place] Final Result [facility] [address] [place] [address], [place] [phone] * Prostate specific antigen screen (01/09/2025 2:39 PM EDT) PSA 1.23 0.00 - 4.00 ng/mL LAB CHEMISTRY METHOD 01/09/2025 7:50 PM EDT [facility] Blood Venous blood specimen / Unknown Venipuncture / Unknown 01/09/2025 2:39 PM EDT 01/09/2025 2:39 PM EDT Narrative [facility] - 01/09/2025 7:50 PM EDT The Siemens Advia Centaur Chemiluminescent Immunoassay is used. Results obtained with different assay methods or kits cannot be used interchangeably. Results cannot be interpreted as absolute evidence of the presence or absence of malignant disease. us Camacho Tello CASING MACHINE OPERATOR LAB BLOOD ORDERABLES Final Resul t [facility] [address] [place] [address], [place] [phone] * (ABNORMAL) CBC auto differential (01/09/2025 2:39 PM EDT) Only the most recent of2 resultswithin the time period is included. WBC 9.1 4.8 - 10.8 K/mcL LAB HEMETOLOGY METHOD 01/09/2025 7:32 PM EDT [facility] RBC 4.30(L) 4.50 - 5.50 M/mcL LAB HEMETOLOGY METHOD 01/09/2025 7:32 PM EDT [facility] Hemoglobin 12.3(L) 13.5 - 17.5 g/dL LAB HEMETOLOGY METHOD 01/09/2025 7:32 PM EDT [facility] Hematocrit 37.6(L) 42.0 - 54.0 % LAB HEMETOLOGY METHOD 01/09/2025 7:32 PM EDT [facility] MCV 88.3 79.0 - 98.0 FL LAB HEMETOLOGY METHOD 01/09/2025 7:32 PM EDT [facility] MCH 28.9 27.0 - 32.0 pcg LAB HEMETOLOGY METHOD 01/09/2025 7:32 PM EDT [facility] MCHC 32.7 32.0 - 37.0 g/dL LAB HEMETOLOGY METHOD 01/09/2025 7:32 PM EDT [facility] RDW 14.5 11.0 - 15.0 % LAB HEMETOLOGY METHOD 01/09[facility]2025 7[facility] Platelets 286 130 - 400 K/mcL LAB HEMETOLOGY METHOD 01/09/2025 7:32 PM EDT [facility] MPV 10.1 7.0 - 11.0 FL LAB HEMETOLOGY METHOD 01/09/2025 7[facility] NRBC 0.0 <1.0 % LAB HEMETOLOGY METHOD 01/09/2025 7:[facility] NRBC Absolute 0.00 <0.10 K/mcL LAB HEMETOLOGY METHOD 01/09/2025 7:[facility] Neutrophils Relative 65.3 % LAB HEMETOLOGY METHOD 01/09/2025 7:32 PM [facility] Lymphocytes Relative 25.6 % LAB HEMETOLOGY METHOD 01/09/2025 7:32 PM [facility] Monocytes Relative 7.1 % LAB HEMETOLOGY METHOD 01/09/2025 7:32 PM [facility] Eosinophils Relative 0.9 % LAB HEMETOLOGY METHOD 01/09/2025 7:32 PM EDT [facility] Basophils Relative 0.8 % LAB HEMETOLOGY METHOD 01/09/2025 7:32 [facility] Immature Granulocytes Relative 0.3 % LAB HEMETOLOGY METHOD 01/09/2025 7:32 PM [facility] Neutrophils Absolute 5.95 1.50 - 7.00 K/mcL LAB HEMETOLOGY METHOD 01/09/2025 7:32 PM EDT [facility] Lymphocytes Absolute 2.33 1.00 - 5.00 K/mcL LAB HEMETOLOGY METHOD 01/09/2025 7:32 PM EDT [facility] Monocytes Absolute 0.65 0.20 - 1.00 K/mcL LAB HEMETOLOGY METHOD 01/09/2025 7:32 PM EDT [facility] Eosinophils Absolute 0.08 0.00 - 0.50 K/[facility] LAB HEMETOLOGY METHOD 01/09/2025 7:32 PM EDT [facility] Basophils Absolute 0.07 0.00 - 0.20 K/[facility] LAB HEMETOLOGY METHOD 01/09/2025 7:32 PM EDT [facility] Immature Granulocytes Absolute 0.03 0.00 - 0.03 K/[facility] LAB HEMETOLOGY METHOD 01/09/2025 7:32 PM EDT [facility] Blood Venous blood specimen / Unknown Venipuncture / Unknown 01/09/2025 2:39 PM EDT 01/09/2025 2:39 PM EDT us Camacho Tello CASING MACHINE OPERATOR LAB BLOOD ORDERABLES Final Resul t [facility] [address] [place] [address], * Iron and TIBC (01/09/2025 2:39 PM EDT) Iron 146 50 - 160 mcg/dL LAB CHEMISTRY METHOD 01/09/2025 7:41 PM EDT [facility] TIBC 299 250 - 450 mcg/dL LAB CHEMISTRY METHOD 01/09/2025 7:41 PM EDT [facility] Iron Saturation 49 20 - 50 % LAB CHEMISTRY METHOD 01/09/2025 7:41 PM EDT [facility] Blood Venous blood specimen / Unknown Venipuncture / Unknown 01/09/2025 2:39 PM EDT 01/09/2025 2:39 PM EDT us Janice Tello CASING MACHINE OPERATOR LAB BLOOD ORDERABLES Final Resul t Performing Organization Address [facility] de Phone Number [facility] [address] [place] [address], [place] [phone] * (ABNORMAL) Reticulocyte count (01/09/2025 2:39 PM EDT) Retic Ct Abs 0.100(H) 0.030 - 0.090 M/mcL LAB HEMETOLOGY METHOD 01/09/2025 7:32 PM EDT [facility] Retic Ct Pct 2.3(H) 0.7 - 1.7 % LAB HEMETOLOGY METHOD 01/09/2025 7:32 PM EDT [facility] Immature Retic Fract 11.8 2.3 - 15.9 % LAB HEMETOLOGY METHOD 01/09/2025 7:32 PM EDT [facility] Reticulocyte Hemoglobin 34.6 >29.0 pcg LAB HEMETOLOGY METHOD 01/09/2025 7:32 PM EDT [facility] Blood Venous blood specimen / Unknown Venipuncture / Unknown 01/09/2025 2:39 PM EDT 01/09/2025 2:39 PM EDT us Janice Tello CASING MACHINE OPERATOR LAB BLOOD ORDERABLES Final Resul t Performing Organization Address City/[facility]/ZIP Co de Phone Number [facility] [address] [place] [address], [place] [phone] * Ferritin (01/09/2025 2:39 PM EDT) Ferritin 124 26 - 388 ng/mL LAB CHEMISTRY METHOD 01/09/2025 7:41 PM EDT [facility] Blood Venous blood specimen / Unknown Venipuncture / Unknown 01/09/2025 2:39 PM EDT 01/09/2025 2:39 PM EDT us Janice Tello CASING MACHINE OPERATOR LAB BLOOD ORDERABLES Final Resul t Performing Organization Address [facility] Co de Phone Number [facility] [address] [place] [address], [place] [phone] * Creatine kinase (01/09/2025 2:39 PM EDT) [facility] Total CK 123 22 - 269 unit/L LAB CHEMISTRY METHOD 01/09/2025 7:41 PM EDT [facility] Blood Venous blood specimen / Unknown Venipuncture / Unknown 01/09/2025 2:39 PM EDT 01/09/2025 2:39 PM EDT us Janice Tello CASING MACHINE OPERATOR LAB BLOOD ORDERABLES Final Resul t Performing Organization Address [facility] de Phone Number [facility] [address] [place] [address], [place] [phone] * Interferon gamma interpretation (01/07/2025 2:50 PM EDT) [facility] Quantiferon Plus Interpretation Negative Negative LAB CHEMISTRY METHOD 01/09/2025 10:51 AM EDT [facility] Blood Venous blood specimen / Unknown Venipuncture / Unknown 01/07/2025 2:50 PM EDT 01/07/2025 2:50 PM EDT us Xenia Son PA LAB BLOOD ORDERABLES Final Re sult Performing Organization Address [facility]/ZIP Co de Phone Number [facility] [address] [place] [address], [place] [phone] * Interferon gamma antigen 2 (01/07/2025 2:50 PM EDT) Blood Venous blood specimen / Unknown Venipuncture / Unknown 01/07/2025 2:50 PM EDT 01/07/2025 2:50 PM EDT us Xenia RUTH LAB BLOOD ORDERABLES Final Re sult [facility] [address] [place] [address], [place] [phone] * Interferon gamma antigen 1 (01/07/2025 2:50 PM EDT) Blood Venous blood specimen / Unknown Venipuncture / Unknown 01/07/2025 2:50 PM EDT 01/07/2025 2:50 PM EDT us Xenia RUTH LAB BLOOD ORDERABLES Final Re sult Performing Organization Address [facility]/ZIP Co de Phone Number [facility] [address] [place] [address], [place] [phone] * Interferon gamma mitogen (01/07/2025 2:50 PM EDT) Blood Venous blood specimen / Unknown Venipuncture / Unknown 01/07/2025 2:50 PM EDT 01/07/2025 2:50 PM EDT us Xenia RUTH LAB BLOOD ORDERABLES Final Re sult Performing Organization Address [facility]/ZIP Co de Phone Number [facility] [address] [place] [address], [place] [phone] * Interferon gamma NIL (01/07/2025 2:50 PM EDT) Blood Venous blood specimen / Unknown Venipuncture / Unknown 01/07/2025 2:50 PM EDT 01/07/2025 2:50 PM EDT us Xenia RUTH LAB BLOOD ORDERABLES Final Re sult Performing Organization Address City/[facility]/ZIP Co de Phone Number [facility] [address] [place] [address], [place] [phone] * Hepatitis B e antibody (01/07/2025 2:50 PM EDT) Hepatitis Be Antibody Nonreactive Nonreactive 01/10/2025 6:34 AM EDT [facility] Comment: Test performed at [facility], [address], [place] [address] Adela Jung MD, PhD - [employer] Blood Venous blood specimen / Unknown Venipuncture / Unknown 01/07/2025 2:50 PM EDT 01/07/2025 2:50 PM EDT us Xeniaaniya Son PA LAB BLOOD ORDERABLES Final Re sult [facility] [address] [place] [address] * Hepatitis B e antigen (01/07/2025 2:50 PM EDT) Hepatitis Be Antigen Nonreactive Nonreactive 01/10/2025 6:34 AM EDT [facility] Comment: Test performed at [facility], [address] [place] [address] Adela Jung MD, PhD - [employer] Blood Venous blood specimen / Unknown Venipuncture / Unknown 01/07/2025 2:50 PM EDT 01/07/2025 2:50 PM EDT us Xeniabecki Son PA LAB BLOOD ORDERABLES Final Re sult [facility] [address] [place] [address] * C-reactive protein (01/07/2025 2:50 PM EDT) Pathologist [facility] C-Reactive Protein <0.29 <=0.50 mg/dL LAB CHEMISTRY METHOD 01/07/2025 7:00 PM EDT [facility] Blood Venous blood specimen / Unknown Venipuncture / Unknown 01/07/2025 2:50 PM EDT 01/07/2025 2:50 PM EDT us Xenia RUTH LAB BLOOD ORDERABLES Final Re sult [facility] [address] [place] [address], [place] [phone] * (ABNORMAL) Comprehensive metabolic panel (01/07/2025 2:50 PM EDT) Pathologist [facility] Sodium 136 133 - 145 mmol/L LAB CHEMISTRY METHOD 01/07/2025 7:24 PM [facility] Potassium 4.0 3.5 - 5.5 mmol/L LAB CHEMISTRY METHOD 01/07/2025 7:24 PM [facility] Chloride 102 96 - 110 mmol/L LAB CHEMISTRY METHOD 01/07/2025 7:24 PM [facility] CO2 23 21 - 32 mmol/L LAB CHEMISTRY METHOD 01/07/2025 7:24 PM [facility] Anion Gap 11 3 - 11 LAB CHEMISTRY METHOD 01/07/2025 7:24 PM [facility] Glucose 199(H) 70 - 100 mg/dL LAB CHEMISTRY METHOD 01/07/2025 7:24 PM [facility] BUN 13 5 - 25 mg/dL LAB CHEMISTRY METHOD 01/07/2025 7:24 PM [facility] Creatinine 1.12 0.70 - 1.30 mg/dL LAB CHEMISTRY METHOD 01/07/2025 7:24 PM [facility] eGFR 75 >=60 mL/min/1. 73m2 LAB CHEMISTRY METHOD 01/07/2025 7:24 PM [facility] Comment:Calculation based on the Chronic Kidney Disease Epidemiology Collaboration (CKD-EPI) equation refit without adjustment for race. BUN/Creatinine Ratio 11.6 LAB CHEMISTRY METHOD 01/07/2025 7:24 PM [facility] Calcium 9.9 8.5 - 10.5 mg/dL LAB CHEMISTRY METHOD 01/07/2025 7:24 PM EDT [facility] AST (SGOT) 14 10 - 42 unit/L LAB CHEMISTRY METHOD 01/07/2025 7:24 PM EDT [facility] ALT (SGPT) 27 10 - 60 unit/L LAB CHEMISTRY METHOD 01/07/2025 7:24 PM EDT [facility] Alkaline Phosphatase 86 42 - 121 unit/L LAB CHEMISTRY METHOD 01/07/2025 7:24 PM EDT [facility] Total Protein 7.8 6.0 - 8.0 g/dL LAB CHEMISTRY METHOD 01/07/2025 7:24 PM [facility] Albumin 3.9 3.2 - 5.0 g/dL LAB CHEMISTRY METHOD 01/07/2025 7:24 PM EDT [facility] Total Bilirubin 0.4 0.0 - 1.4 mg/dL LAB CHEMISTRY METHOD 01/07/2025 7:24 PM EDT [facility] Blood Venous blood specimen / Unknown Venipuncture / Unknown 01/07/2025 2:50 PM EDT 01/07/2025 2:50 PM EDT us Xenia RUTH LAB BLOOD ORDERABLES Final Re sult [facility] [address] [place] [address], * Lipid panel with reflex to direct LDL (10/17/2024 2:48 PM EDT) Cholesterol 98 0 - 200 mg/dL LAB CHEMISTRY METHOD 10/17/2024 8:13 PM EDT [facility] Triglycerides 89 0 - 150 mg/dL LAB CHEMISTRY METHOD 10/17/2024 8:13 PM EDT [facility] HDL 51 >=40 mg/dL LAB CHEMISTRY METHOD 10/17/2024 8:13 PM EDT [facility] LDL Calculated 29 0 - 100 mg/dL LAB CHEMISTRY METHOD 10/17/2024 8:13 PM EDT [facility] VLDL Cholesterol Rajeev 17.8 mg/dL LAB CHEMISTRY METHOD 10/17/2024 8:13 PM EDT [facility] Non HDL Chol. (LDL+VLDL) 47 <145 mg/dL LAB CHEMISTRY METHOD 10/17/2024 8:13 PM EDT [facility] Chol/HDL Ratio 1.9 0.0 - 4.4 LAB CHEMISTRY METHOD 10/17/2024 8:13 PM EDT [facility] Blood Venous blood specimen / Unknown Venipuncture / Unknown 10/17/2024 2:48 PM EDT 10/17/2024 2:48 PM EDT us Camacho [facility] LAB BLOOD ORDERABLES Final Resul t Performing Organization Address City/[facility]/ZIP Co de Phone Number [facility] [address] [place] [address], [place] [phone] * Hemoglobin A1c (10/17/2024 2:48 PM EDT) Hemoglobin A1C 6.0 <6.5 % LAB CHEMISTRY METHOD 10/17/2024 9:34 PM EDT [facility] Mean Bld Glu Estim. 126 mg/dL LAB CHEMISTRY METHOD 10/17/2024 9:34 PM EDT [facility] Blood Venous blood specimen / Unknown Venipuncture / Unknown 10/17/2024 2:48 PM EDT 10/17/2024 2:48 PM EDT us Camacho Tello CASING MACHINE OPERATOR LAB BLOOD ORDERABLES Final Resul t [facility] [address] [place] [address], [place] [phone] from Last 3 Months or Most Recently Relevant to Health Maintenance Insurance MEDICA[place] - [place] MEDICARE Care Teams [facility] Worker Relationship Specialty Start Date End Date Mo Magana DO [address] [place] [phone] PCP - General 08/14/22
--- OUTSIDE RECORDS SUMMARY | 2025-04-03 13:58 | XMS_ITS | Encounter Summary ---
Author Organization [facility] Address [address] [place] [address] Care Team Providers Care Pelt Dropper Name Role Phone Mo Magana Primary Care Provider [phone] Encounter Details Date Type Department Care Team ([facility] Contact Info) Description 01/22/2025 Lab Requisition [facility] - Main Lab [address] [facility] [place] [address] Janice Tello NP [address] [place] [address] [address] [place] [address] Urinary tract infection, site not specified; Hematuria, [...] Upcoming Encounters Date Type Department Care Team ([facility] Contact Info) Description 04/13/2025 2:00 PM EDT Office Visit Gastroenterology - [place] [address] [place] [id number] Xenia Son PA [address] [facility] [address] [place] [address] documented as of this encounter Procedures Procedure [...] reflex microscopic (01/22/2025 9:00 AM EDT) Specific [place] Urine 1.030 1.003 - 1.030 LAB URINALYSIS - AUTOMATED METHOD 01/22/2025 1:06 PM [facility] pH, Urine 5.5 5.0 - 8.0 pH LAB URINALYSIS - AUTOMATED METHOD 01/22/2025 1:06 PM [facility] Leukocytes, Urine Negative Negative LAB URINALYSIS - AUTOMATED METHOD 01/22/2025 1:06 PM [facility] Nitrite, Urine Negative Negative LAB URINALYSIS - AUTOMATED METHOD 01/22/2025 1:06 PM [facility] Protein, Urine 30(A) <=Trace mg/dL LAB URINALYSIS - AUTOMATED METHOD 01/22/2025 1:06 PM [facility] Glucose, Urine Negative Negative mg/dL LAB URINALYSIS - AUTOMATED METHOD 01/22/2025 1:06 PM [facility] Ketones, Urine Trace(A) Negative mg/dL LAB URINALYSIS - AUTOMATED METHOD 01/22/2025 1:06 PM [facility] Urobilinogen, Urine 1.0 0.2 - 1.0 mg/dL LAB URINALYSIS - AUTOMATED METHOD 01/22/2025 1:06 PM [facility] Bilirubin, Urine Negative Negative LAB URINALYSIS - AUTOMATED METHOD 01/22/2025 1:06 PM [facility] Blood, Urine Negative Negative LAB URINALYSIS - AUTOMATED METHOD 01/22/2025 1:06 PM [facility] RBC, Urine 1.3 0 - 4 /HPF LAB URINALYSIS - AUTOMATED METHOD 01/22/2025 1:06 PM [facility] WBC, Urine 1.0 0 - 4 /HPF LAB URINALYSIS - AUTOMATED METHOD 01/22/2025 1:06 PM [facility] Squamous Epithelial, Urine 12 0 - 60 /LPF LAB URINALYSIS - AUTOMATED METHOD 01/22/2025 1:06 PM [facility] Bacteria, Urine Negative Negative /HPF LAB URINALYSIS - AUTOMATED METHOD 01/22/2025 1:06 PM [facility] Hyaline Casts, Urine 0.8 0 - 3 /LPF LAB URINALYSIS - AUTOMATED METHOD 01/22/2025 1:06 PM [facility] Urine Urine specimen obtained by clean catch procedure / Unknown 01/22/2025 9:00 AM EDT 01/22/2025 11:06 AM EDT us Camacho Tello [facility] LAB URINE ORDERABLES Final Resul t [facility] [address] [place] [address], * Culture urine (01/22/2025 9:00 AM EDT) Culture, Urine <10,000 CFU/mL gram positive cocci, insignificant count, no further workup 01/23/2025 7:44 AM EDT [facility] Urine Urine specimen obtained by clean catch procedure / Unknown 01/22/2025 9:00 AM EDT 01/22/2025 11:06 AM EDT us Camacho Tello [facility] REGIST[facility] LAB MICROBIOLOGY - GENERAL ORDER ARCADIO Final Result [facility] ([facility]) [facility] [address] [place] [address], documented in this encounter Visit Diagnoses Diagnosis Urinary tract infection, site not specified Hematuria, unspecified documented in this encounter Care Teams Pelt Dropper Relationship Specialty Start Date End Date Mo Magana DO [address] [place] [phone] PCP - General 08/14/22 documented as of this encounter
== END 2025-04-03 13:46 | disposition home or self-care (01) ==
LOC: HO.XRAY 13:45
PROVIDERS: Visit Provider Orthopaedic Surgery
DX: M25.561 Pain in right knee (principal); M25.562 Pain in left knee; M25.512 Pain in left shoulder; Z01.818 Encounter for other preprocedural examination
CPT/HCPCS: 70030; 73030; 73562

== ENCOUNTER → 2025-04-03 13:50 | Outpatient (BNV) | payer MEDICARE, MEDICAID, SELFPAY | PROVIDERS: Visit Provider Radiology Diagnostic Radiology | DX: Z03.89 Encounter for observation for other suspected diseases and conditions ruled out (principal) | CPT/HCPCS: 70030 ==

== ENCOUNTER 2025-04-04 14:52 | Outpatient (REF) | payer MEDICARE, MEDICAID, SELFPAY ==
--- NOTE | ~2025-04-04 | MR_ITS ---
CLINICAL HISTORY: M54.2 - Cervicalgia Examination: MRI cervical spine without intravenous contrast Comparison: None Findings: The cervical spine is anatomic in alignment and demonstrates a normal anatomic lordotic curvature. The vertebral body heights are well maintained. No acute or chronic compression deformities are present. The marrow signal is unremarkable. The cervical cord is normal caliber and signal intensity. Craniocervical junction and cervical medullary junction are preserved. No tonsillar ectopia. Individual intervertebral disc levels as follows: C2-C3: Normal disc height and signal with no discogenic changes. No disc bulge protrusion or extrusion. No central or foraminal stenosis or thecal sac compression. Normal posterior elements. C3-C4: Normal disc height and signal with no discogenic changes. Focal central disc herniation causing ventral compression of the thecal sac without definite cord impingement.No foraminal stenosis or nerve root impingement. Normal posterior elements. C4-C5: Normal disc height and signal with no discogenic changes. No disc bulge protrusion or extrusion. No central or foraminal stenosis or thecal sac compression mild degenerative facet arthropathy C5-C6: Normal disc height and signal with no discogenic changes. Spur disc complexes bilaterally.There is impingementof C6 exiting nerve root on the right.Mild degenerative facet arthropathy. C6-C7: Normal disc height and signal with no discogenic changes. Subarticular disc herniation on the left encroaching on the neural foramina. There is impingement C7 exiting nerve root on the right. No central or foraminal stenosis or thecal sac compression. Normal posterior elements. C7-T1: Normal disc height and signal with no discogenic changes. No disc bulge protrusion or extrusion. No central or foraminal stenosis or thecal sac compression. Normal posterior elements. Impression: 1. No compression fractures or listhesis normal cervical lordosis. 2. Normal caliber and signal cervical cord 3. Subarticular disc herniation C6-7 on the left encroaching on the neural foramina with impingement of C7 exiting nerve root on the left 4. Spur disc complexes C5-6 bilaterally there is impingement of C6 exiting nerve root on the right 5. Small focal central disc herniation C3-4 level with mild ventral compression thecal sac but no cord impingement. This document has been electronically signed by: Ji Singh MD on 04/06/2025 16:44:47
--- OUTSIDE RECORDS SUMMARY | 2025-04-04 15:00 | XMS_ITS | Data Portability ---
Author Organization [facility], [facility] Address [address] [place] [address] Assessment Encounter Date Assessment Date Assessment LastModified by Organization Details LastModified Time 09/11/2023 09/11/2023 Chief complaint: Bilateral, right worse than left, knee pain. History of present illness: The patient is a 57-year-old male presenting with a chief complaint of bilateral knee pain. He has had pain for years. The patient indicates that he is having pain at the inside of the knee and outside of the knee. He states that his pain is getting worse. This pain is typically constant of. He describes his pain as sharp and throbbing. He typically has pain when walking, sitting, standing, and lying in bed. Pain is made worse when walking. The patient currently has 7-8 out of 10 pain. He associates this pain with stiffness and weakness. He indicates that he walks with a severe limp. Currently the patient uses a cane or a walker when walking. The patient has 6 stairs to walk before getting into his home. He has 0 stairs inside his home. The patient has tried rest, NSAIDS, exercise, corticosteroid injection, viscosupplementation, and activity modification but continues to have pain. Past medical history: Past medical history reviewed from the patient's intake sheet. Pertinent positives: Crohn's disease and diabetes Past surgical history: Past surgical history reviewed from the patient's intake sheet. Pertinent positives: none Allergies: Allergies reviewed from the patient's intake sheet. Pertinent positives: Humira Medications: Medications reviewed from the patient's intake sheet. Pertinent positives: glipizide and metformin Social history: Social history reviewed from the patient's intake sheet. Pertinent positives: he lives alone Family History: Family history reviewed from the patient's intake sheet. Pertinent positives: none Review of systems: A 14 point review of systems was reviewed from the patient's intake sheet. Pertinent positives: Crohn's disease and diabetes Physical Examination: The patient is in no acute distress. He is alert and oriented x3. He has nonlabored breathing. His hearing is intact to spoken word. His extra-ocular motion is intact. His BMI is 37.5. Right lower extremity - Alignment: varus Effusion: moderate Knee range of motion: 10-105 Varus/valgus stress testing: moderate laxity Crepitus: slight Skin is intact without erythema, induration, or ecchymosis. The patient has full painless range of motion at the ipsilateral hip. Sensation is intact to light touch over the dorsum of the foot, in the first webspace, and over the plantar aspect of the foot. The patient has 5/5 strength with plantarflexion of the ankle, dorsiflexion of the ankle, plantarflexion of the great toe, and dorsiflexion of the great toe. The foot is warm and well-perfused with brisk capillary refill. There is a 2+ dorsalis pedis pulse. Left lower extremity - Alignment: varus Effusion: moderate Knee range of motion: 10-110 Varus/valgus stress testing: moderate laxity Crepitus: slight Skin is intact without erythema, induration, or ecchymosis. The patient has full painless range of motion at the ipsilateral hip. Sensation is intact to light touch over the dorsum of the foot, in the first webspace, and over the plantar aspect of the foot. The patient has 5/5 strength with plantarflexion of the ankle, dorsiflexion of the ankle, plantarflexion of the great toe, and dorsiflexion of the great toe. The foot is warm and well-perfused with brisk capillary refill. There is a 2+ dorsalis pedis pulse. Radiographs: 5 views of the bilateral knees including bilateral knee AP, bilateral knee Munoz, right and left knee lateral, and bilateral knee merchant views were obtained and evaluated in the office previously and are available for review. X-rays demonstrate that the patient has end-stage osteoarthritis with joint space narrowing, subchondral sclerosis, osteophyte formation in the bilateral knees. There is no evidence of fracture. Assessment and plan: The patient is a 57-year-old male presenting with a chief complaint of bilateral knee pain. He demonstrates end-stage osteoarthritis of the bilateral knees on his radiographs. At this point, the patient has failed non-operative treatment of his right knee osteoarthritis. The patient has tried NSAIDs, rest, exercise, corticosteroid injection, viscosupplementation injections, use of a cane and walker, and activity modification but continues to have worsening pain for greater than 3 months. A thorough discussion was had with the patient regarding both nonsurgical and surgical interventions for treatment of right knee osteoarthritis. Since the patient has experienced worsening pain despite conservative treatment, the patient wished to proceed with surgery. The nature of knee replacement surgery, the potential risks, benefits, complications, the magnitude of the surgery, the intensity of postoperative recovery, and the elective nature of a right total knee arthroplasty were discussed at length. Risks and complications discussed included postoperative stiffness, infection requiring further surgery or potential removal of implants, persistent infection requiring possible amputation, wound healing complications, instability, dislocation, need for additional surgery or revision arthroplasty, aseptic loosening, extensor mechanism disruption, implant failure, injury to nerve, foot drop, numbness, numbness over the lateral knee, injury to blood vessel, bleeding, hematoma, need for transfusion, fracture, heart attack, stroke, deep vein thrombosis, pulmonary embolism, and even intraoperative or postoperative . Despite these risks, the patient still wished to proceed with surgery. The patient was instructed that I am happy to meet again at any time in order to review any additional questions or concerns the patient might have. Since the patient wishes to proceed, we will schedule the patient for a right total knee arthroplasty. The patient will require clearance from a medical doctor prior to surgery. The next planned follow-up is at the preoperative history and physical appointment. [email or web address] Not available 09/17/2023 06:48:51 Plan of Treatment Reminders Order Date Submit Date Provider Last Modified By Organization Details Last Modified Time Details Appointments None recorded. Lab None recorded. Referral physical therapist referral - ROM, Osvaldoi taylor, Leonidesin moo, Gait Training Etc. Physical therapy to begin 7-10 days after surgery, in an outpatient site. Please bring this script and attached protocol with you to your physical therapy appointment 2023 024 [facility] [place], [address] [place] [address], [place], [address], 4 14:53:53 physical therapist referral - Strengtheni ng Lower Extremity Upper extremity to improve strength for transfers with arthritic lower extremity No ROM Conditionin g- stationary bike, etc. If pt over age 55 or has any cardiopulmo nary history, call PCP first to obtain medical clearance. Gait training Cane Walker Assistive devices for ADL's- sock puller, long shoe horn, etc. 2023 024 NATHALIE Not available 4 14:47:24 Procedures None recorded. Surgeries None recorded. Imaging None recorded. Medication Orders None recorded. Patient TargetsNo targets recorded. Patient InstructionsNo instructions recorded. Reason for Referral Physical Therapist Referral for Osteoarthritis of right knee joint Strengthening Lower Extremity Upper extremity to improve strength for transfers with arthritic lower extremity No ROM Conditioning- stationary bike, etc. If pt over age 55 or has any cardiopulmonary history, call PCP first to obtain medical clearance.Gait training Cane WalkerAssistive devices for ADL's- sock puller, long shoe horn, etc. Referring Physician: Lucio Kaiser, Orthopedic Surgery, [id number] Encounter Date: 09/11/2023 Physical Therapist Referral for Osteoarthritis of knee ROM, Strengthening, Conditioning, Gait Training Etc.Physical therapy to begin 7- 10 days after surgery, in an outpatient site. Please bring this script and attached protocol with you to your physical therapy appointment Referring Physician: Lucio Kaiser, Orthopedic Surgery, [id number] Encounter Date: 09/11/2023 Results Created Date Observation Date Name Description Value Unit Range Abnormal Flag Note LastModifiedBy Organization Detail LastModifiedTime 09/11/1909/20/2023 TOXAS SURE SELEC T 13 () summary report (summary) FINAL ===== ===== ===== ===== ===== ===== ===== ===== ===== ===== ===== ===== ===== === TOXAS SURE SELEC T 13 () ===== ===== ===== ===== ===== ===== ===== ===== ===== ===== ===== ===== ===== === Test Resul t Flag Units Drug Prese nt Tyron epajerry 255 ng/mg creat Sourc e of loraz epam is a sched uled presc ripti on medic ation . 7-ami noclo nazep am 131 ng/mg creat 7-ami noclo nazep am is an expec luc metab olite of clona zepam . Sourc e of clona zepam is a sched uled presc ripti on medic ation . Cocai ne >2232 ng/mg creat Benzo ylecg onine >2232 ng/mg creat Cocae thyle ne 343 ng/mg creat Sourc e of cocai ne is most commo nly illic it, but cocai ne is prese nt in some topic al anest hetic solut ions. Benzo ylecg onine is an expec luc metab olite of cocai ne. Cocae thyle ne is a cocai ne metab olite forme d in the prese nce of jaxson ol. Alcoh ol, Ethyl 0.020 g/dL Sourc es of ethyl alcoh ol inclu de alcoh olic bever ages or as a ferme ntati on produ ct of gluco se; gluco se is prese nt in this speci men. Inter pret resul t with cauti on, as the prese nce of ethyl alcoh ol is likel y due, at least in part, to ferme ntati on of gluco se. Carbo xy-TH C 58 ng/mg creat Carbo xy-TH C is a metab olite of tetra hydro canna binol (THC) . Sourc e of THC is most commo nly herba l marij uana or marij uana- based produ cts, but THC is also prese nt in a sched uled presc ripti on medic ation . Trace amoun ts of THC can be prese nt in hemp and canna bidio l (CBD) produ cts. This test is not inten ded to disti nguis h betwe en delta -9-te trahy droca nnabi nol, the predo minan t form of THC in most herba l or marij uana- based produ cts, and delta -8-te trahy droca nnabi nol. Bupre norph ine 161 ng/mg creat Norbu preno rphin e 84 ng/mg creat Sourc e of bupre norph ine is a sched uled presc ripti on medic ation . Norbu preno rphin e is an expec luc metab olite of bupre norph ine. ===== ===== ===== ===== ===== ===== ===== ===== ===== ===== ===== ===== ===== === Test Resul t Flag Units Ref Range Creat inine 224 mg/dL >=20 ===== ===== ===== ===== ===== ===== ===== ===== ===== ===== ===== ===== ===== === Decla red Medic ation s: Medic ation list was not provi ded. ===== ===== ===== ===== ===== ===== ===== ===== ===== ===== ===== ===== ===== === For clini mookie consu ltati on, pleas e call . ===== ===== ===== ===== ===== ===== ===== ===== ===== ===== ===== ===== ===== === Not Available [facility] ([facility]) [address] [facility], [place], [address], 09/20/2023 16:06:50 Result Notes None recorded. Medical Equipment None Reported. Allergies Allergen ID Allergen Name Allergen Category Reaction Reaction Severity Criticality Documentation Date Start Date Code Code System Note Provider Name and Address Organization Details Recorded Time 526893 Humira medicatio n Not available Not available Not available 09/11/2023 71638 4 RxNorm CHIQUITA vargas [place] - [facility] 14:55:40 Medications Name Sig Start Date Stop Date Status Note LastModified by Organization Details LastModified Time hydrochlorothi azide 50 mg tablet active Not Available Not Available Not Available glipizide ER 10 mg tablet, extended release 24 hr active Not Available Not Availabl e Not Available FreeStyle Lancets 28 gauge active Not Available Not Available Not Available amlodipine 5 mg tablet active Not Available Not Available No t Available lorazepam 0.5 mg tablet TAKE 1 TABLET BY MOUTH EVERY DAY AT BEDTIME NEEDED FOR 30 DAYS active Not Available Not Available No t Available hydrocortisone 1 % topical cream APPLY TO AFFECTED AREA active Not Available Not Available No t Available erythromycin 5 mg/gram (0.5 %) eye ointment active Not Available Not Available Not Available metformin 1,000 mg tablet active Not Available Not Available Not Available Ear Drops (carbamide peroxide) 6.5 % active Not Available Not Available Not Available betamethasone dipropionate 0.05 % topical cream active Not Available Not Available Not Available bisacodyl 5 mg tablet,delayed release active Not Available Not Available Not Available hydrochlorothi azide 25 mg tablet active Not Available Not Available Not Available methylpredniso lone 4 mg tablets in a dose pack active Not Available Not Available No t Available losartan 100 mg tablet active Not Available Not Available No t Available FreeStyle Lite Strips active Not Available Not Available Not Available GaviLyte-G 236 gram-22.74 gram-6.74 gram-5.86 gram oral solution active Not Available Not Availabl e Not Available Victoza 2-Tony 0.6 mg/0.1 mL (18 mg/3 mL) subcutaneous pen injector active Not Available Not Available Not Available UltiCare Pen Needle 32 gauge x 1/4 active Not Available Not Available Not Available Ozempic 0.25 mg or 0.5 mg (2 mg/3 mL) subcutaneous pen injector active Not Available Not Available Not Available Vitals Date Recorded Body weight Body mass index (BMI) Body height Provider Name and Address Organization Details Last Updated DateTime 09/11/2023 135370.23 g 37.5 kg/m2 185.42 cm CHIQUITA DIGGS [place] - [facility] 09/11/2023 14:55:03 Social History None recorded. Functional Status None recorded. Mental Status None recorded. Family History Nothing Reported. Medical History No medical history recorded. Past Encounters Encounter ID Performer Location Encounter Start Date Encounter Closed Date Diagnosis/Indication Diagnosis SNOMED-CT Code Diagnosis ICD10 Code Diagnosis IMO Codes Diagnosis Note [id number] MD [facility] [address] [address] [place] [address] 09/11/2023 14:38:30 10/01/2023 13:34:49 Osteoarthritis of right knee joint 7640226749 49713 M17.11 Osteoarthr itis of knee 537978657 M17.9 Health Concerns Section Related Observation LastModified by Organization Detai ls LastModified Time None Recorded Concern Status LastModified by Organization Details LastModified Time None Recorded Advance Directives Directive None Recorded Payers Insurance Date Sequence Insurance Name Policy Number Policy Concepcion Covered Member ID Concepcion Member ID Guarantor Name 06/28/2024 1 [facility] [employer] (MEDICAID REPLACEMENT - HMO) [id number] Donell Aguilar [id number] Donell Aguilar
--- OUTSIDE RECORDS SUMMARY | 2025-04-04 15:00 | XMS_ITS | Encounter Summary ---
Author Organization [facility] Address [address] [place] [address] Care Team Providers Care Engine Repairer Production Name Role Phone Mo Magana Primary Care Provider [phone] Encounter Details Date Type Department Care Team ([facility] [address] Contact Info) Description 01/22/2025 Lab Requisition [facility] - Main Lab [address] [facility] [place] [address] Janice Tello NP [address] [place] [address] [address] [place] [address] Urinary tract infection, site not specified; Hematuria, [...] Upcoming Encounters Date Type Department Care Team ([facility] [address] Contact Info) Description 04/13/2025 2:00 PM EDT Office Visit Gastroenterology - [place] [address] [place] [id number] Xenia Son PA [address] [facility] [address] [place] [address] documented as of this encounter Procedures Procedure [...] reflex microscopic (01/22/2025 9:00 AM EDT) Specific [place] Urine 1.030 1.003 - 1.030 LAB URINALYSIS - AUTOMATED METHOD 01/22/2025 1:06 PM [facility] pH, Urine 5.5 5.0 - 8.0 pH LAB URINALYSIS - AUTOMATED METHOD 01/22/2025 1:06 PM [facility] Leukocytes, Urine Negative Negative LAB URINALYSIS - AUTOMATED METHOD 01/22/2025 1:06 PM [facility] Nitrite, Urine Negative Negative LAB URINALYSIS - AUTOMATED METHOD 01/22/2025 1:06 PM [facility] Protein, Urine 30(A) <=Trace mg/dL LAB URINALYSIS - AUTOMATED METHOD 01/22/2025 1:06 PM [facility] Glucose, Urine Negative Negative mg/dL LAB URINALYSIS - AUTOMATED METHOD 01/22/2025 1:06 PM [facility] Ketones, Urine Trace(A) Negative mg/dL LAB URINALYSIS - AUTOMATED METHOD 01/22/2025 1:06 PM [facility] Urobilinogen, Urine 1.0 0.2 - 1.0 mg/dL LAB URINALYSIS - AUTOMATED METHOD 01/22/2025 1:06 PM [facility] Bilirubin, Urine Negative Negative LAB URINALYSIS - AUTOMATED METHOD 01/22/2025 1:06 PM [facility] Blood, Urine Negative Negative LAB URINALYSIS - AUTOMATED METHOD 01/22/2025 1:06 PM [facility] RBC, Urine 1.3 0 - 4 /HPF LAB URINALYSIS - AUTOMATED METHOD 01/22/2025 1:06 PM [facility] WBC, Urine 1.0 0 - 4 /HPF LAB URINALYSIS - AUTOMATED METHOD 01/22/2025 1:06 PM [facility] Squamous Epithelial, Urine 12 0 - 60 /LPF LAB URINALYSIS - AUTOMATED METHOD 01/22/2025 1:06 PM [facility] Bacteria, Urine Negative Negative /HPF LAB URINALYSIS - AUTOMATED METHOD 01/22/2025 1:06 PM [facility] Hyaline Casts, Urine 0.8 0 - 3 /LPF LAB URINALYSIS - AUTOMATED METHOD 01/22/2025 1:06 PM [facility] Urine Urine specimen obtained by clean catch procedure / Unknown 01/22/2025 9:00 AM EDT 01/22/2025 11:06 AM EDT us Camacho Tello DUMP MOTOR OPERATOR LAB URINE ORDERABLES Final Resul t [facility] [address] [place] [address], * Culture urine (01/22/2025 9:00 AM EDT) Culture, Urine <10,000 CFU/mL gram positive cocci, insignificant count, no further workup 01/23/2025 7:44 AM EDT [facility] Urine Urine specimen obtained by clean catch procedure / Unknown 01/22/2025 9:00 AM EDT 01/22/2025 11:06 AM EDT us Camacho Tello DUMP MOTOR OPERATOR LAB MICROBIOLOGY - GENERAL ORDER ARCADIO Final Result [facility] [address] [place] [address], documented in this encounter Visit Diagnoses Diagnosis Urinary tract infection, site not specified Hematuria, unspecified documented in this encounter Care Teams Engine Repairer Production Relationship Specialty Start Date End Date Mo Magana DO [address] [place] [phone] PCP - General 08/14/22 documented as of this encounter
--- OUTSIDE RECORDS SUMMARY | 2025-04-04 15:00 | XMS_ITS | Clinical Summary ---
Author Organization [facility] Address [address] [place] [address] Phone Care Team Providers Care Fine Dining Server Name Role Phone Eliebertin Mo Primary Care Provider [phone] Allergies Active Allergy Reactions Criticality Noted Date [...] of small int estine with fistula ([facility] V24, [facility] V28) 07/15/2024 Encounters Date Type Department Care Team Description 02/20/2025 Telephone Gastroenterology [facility] [address] [phone] Xenia Son PA 02/17/2025 Telephone Gastroenterology [facility] 175 [facility] [address] [phone] Xenia Son PA 02/12/2025 Telephone Gastroenterology [facility] 175 [facility] [address] [phone] Xenia Son PA 02/05/2025 7:40 AM EDT - 02/05/2025 11:59 PM EDT Hospital Encounter [facility] CT Scan [address] [place] [phone] Crohn's disease of small intestine with fistula ([facility] V24, [facility] V28) Discharge Disposition: Home or Self Care 01/28/2025 Telephone Gastroenterology [facility] [address] [place] [address] Xenia Son PA 01/22/2025 Lab Requisition [facility] - Main Lab [address] [facility] [place] [address] Janice Tello NP Urinary tract infection, site not specified; Hematuria, unspecified 01/07/2025 2:50 PM EDT Lab Draw Station - [address] [place] [address] Crohn's disease of small intestine with fistula ([facility] V24, [facility] V28) 01/07/2025 2:00 PM EDT Office Visit Gastroenterology [facility] [address] [place] [address] Xenia Son PA Crohn's disease of small intestine with fistula ([facility] V24, [facility] V28) (Primary Dx) 01/07/2025 Telephone Gastroenterology [facility] [address] [place] [address] Xenia Son PA from Last 3 Months Surgical History Surgery Date Site/Laterality Comments OTHER SURGICAL HISTORY COLONOSCOPY COLON SURGERY Medical History Medical History Date Comments Hyperlipidemia Hypertension Diabetes mellitus ([facility] V24, [facility] V28) Crohn's disease of colon with fistula ([facility] V 24, [facility] V28) Irritable bowel syndrome Anxiety Depression Chronic pain disorder Arthritis Joint pain multtiple Abdominal pain despite thera py for Crohn's disease ([facility] V24, [facility] V28) Social History Tobacco Use Types Packs/Day [...] 2:00 PM EDT Office Visit Gastroenterology - [place] [address] [facility] [address] [place] [phone] Xenia Son PA [address] [facility] [address] [place] [address] Health Maintenance Due Date Last Done Comments [...] disease of small intestine with fistula ([facility] V24, [facility] V28) URINALYSIS WITH REFLEX MICROSCOPIC Routine 01/22/2025 [...] Signed Date: 02/05/2025 16:07 ET Workstation ID: [id number] Transcribed By: Self Edit Transcribed Date: 02/05/2025 [...] Signed Date: 02/05/2025 16:07 ET Workstation ID: [id number] Transcribed By: Self Edit Transcribed Date: 02/05/2025 15:57 ET Xenia RUTH IMG CT PROCEDURES Final Resul t * (ABNORMAL) Urinalysis with reflex microscopic (01/22/2025 9:00 AM EDT) Specific [place] Urine 1.030 1.003 - 1.030 LAB URINALYSIS - AUTOMATED METHOD 01/22/2025 1:06 PM [facility] pH, Urine 5.5 5.0 - 8.0 pH LAB URINALYSIS - AUTOMATED METHOD 01/22/2025 1:06 PM [facility] Leukocytes, Urine Negative Negative LAB URINALYSIS - AUTOMATED METHOD 01/22/2025 1:06 PM [facility] Nitrite, Urine Negative Negative LAB URINALYSIS - AUTOMATED METHOD 01/22/2025 1:06 PM [facility] Protein, Urine 30(A) <=Trace mg/dL LAB URINALYSIS - AUTOMATED METHOD 01/22/2025 1:06 PM [facility] Glucose, Urine Negative Negative mg/dL LAB URINALYSIS - AUTOMATED METHOD 01/22/2025 1:06 PM [facility] Ketones, Urine Trace(A) Negative mg/dL LAB URINALYSIS - AUTOMATED METHOD 01/22/2025 1:06 PM [facility] Urobilinogen, Urine 1.0 0.2 - 1.0 mg/dL LAB URINALYSIS - AUTOMATED METHOD 01/22/2025 1:06 PM [facility] Bilirubin, Urine Negative Negative LAB URINALYSIS - AUTOMATED METHOD 01/22/2025 1:06 PM [facility] Blood, Urine Negative Negative LAB URINALYSIS - AUTOMATED METHOD 01/22/2025 1:06 PM [facility] RBC, Urine 1.3 0 - 4 /HPF LAB URINALYSIS - AUTOMATED METHOD 01/22/2025 1:06 PM [facility] WBC, Urine 1.0 0 - 4 /HPF LAB URINALYSIS - AUTOMATED METHOD 01/22/2025 1:06 PM EDT [facility] Squamous Epithelial, Urine 12 0 - 60 /LPF LAB URINALYSIS - AUTOMATED METHOD 01/22/2025 1:06 PM EDT [facility] Bacteria, Urine Negative Negative /HPF LAB URINALYSIS - AUTOMATED METHOD 01/22/2025 1:06 PM EDT [facility] Hyaline Casts, Urine 0.8 0 - 3 /LPF LAB URINALYSIS - AUTOMATED METHOD 01/22/2025 1:06 PM EDT [facility] Urine Urine specimen obtained by clean catch procedure / Unknown 01/22/2025 9:00 AM EDT 01/22/2025 11:06 AM EDT us Janice Tello [employer] LAB URINE ORDERABLES Final Resul t Performing Organization Address City/[facility]/ZIP Co de Phone Number [facility] [address] [place] [address], [place] [phone] * Culture urine (01/22/2025 9:00 AM EDT) Culture, Urine <10,000 CFU/mL gram positive cocci, insignificant count, no further workup 01/23/2025 7:44 AM EDT [facility] Urine Urine specimen obtained by clean catch procedure / Unknown 01/22/2025 9:00 AM EDT 01/22/2025 11:06 AM EDT us Camacho Tello [employer] LAB MICROBIOLOGY - GENERAL ORDER AR[place] Final Result [facility] [address] [place] [address], [place] [phone] * Prostate specific antigen screen (01/09/2025 2:39 PM EDT) PSA 1.23 0.00 - 4.00 ng/mL LAB CHEMISTRY METHOD 01/09/2025 7:50 PM EDT [facility] Blood Venous blood specimen / Unknown Venipuncture / Unknown 01/09/2025 2:39 PM EDT 01/09/2025 2:39 PM EDT Narrative [facility] - 01/09/2025 7:50 PM EDT The Siemens Advia Centaur Chemiluminescent Immunoassay is used. Results obtained with different assay methods or kits cannot be used interchangeably. Results cannot be interpreted as absolute evidence of the presence or absence of malignant disease. us Camacho Tello [employer] LAB BLOOD ORDERABLES Final Resul t [facility] [address] [place] [address], [place] [phone] * (ABNORMAL) CBC auto differential (01/09/2025 2:39 PM EDT) Only the most recent of2 resultswithin the time period is included. WBC 9.1 4.8 - 10.8 K/mcL LAB HEMETOLOGY METHOD 01/09/2025 7:32 PM EDT [facility] RBC 4.30(L) 4.50 - 5.50 M/mcL LAB HEMETOLOGY METHOD 01/09/2025 7:32 PM EDT [facility] Hemoglobin 12.3(L) 13.5 - 17.5 g/dL LAB HEMETOLOGY METHOD 01/09/2025 7:32 PM EDT [facility] Hematocrit 37.6(L) 42.0 - 54.0 % LAB HEMETOLOGY METHOD 01/09/2025 7:32 PM EDT [facility] MCV 88.3 79.0 - 98.0 FL LAB HEMETOLOGY METHOD 01/09/2025 7:32 PM EDT [facility] MCH 28.9 27.0 - 32.0 pcg LAB HEMETOLOGY METHOD 01/09/2025 7:32 PM EDT [facility] MCHC 32.7 32.0 - 37.0 g/dL LAB HEMETOLOGY METHOD 01/09/2025 7:32 PM EDT [facility] RDW 14.5 11.0 - 15.0 % LAB [facility]EMETOLOGY [facility] Platelets 286 130 - 400 K/mcL LAB HEMETOLOGY METHOD 01/09/2025 7:32 PM EDT [facility] MPV 10.1 7.0 - 11.0 FL LAB HEMETOLOGY METHOD [facility]2025 [facility] NRBC 0.0 <1.0 % LAB HEMETOLOGY METHOD 01/09/2025 7[facility] NRBC Absolute 0.00 <0.10 K/mcL LAB HEMETOLOGY METHOD 01/09/2025 7:[facility] Neutrophils Relative 65.3 % LAB HEMETOLOGY METHOD 01/09/2025 7:32 PM [facility] Lymphocytes Relative 25.6 % LAB HEMETOLOGY METHOD 01/09/2025 7:32 PM [facility] Monocytes Relative 7.1 % LAB HEMETOLOGY METHOD 01/09/2025 7:32 PM [facility] Eosinophils Relative 0.9 % LAB HEMETOLOGY METHOD 01/09/2025 7:32 PM EDT [facility] Basophils Relative 0.8 % LAB HEMETOLOGY METHOD [facility]2025 [facility] Immature Granulocytes Relative 0.3 % LAB HEMETOLOGY METHOD 01/09/2025 7:32 PM [facility] Neutrophils Absolute 5.95 1.50 - 7.00 K/mcL LAB HEMETOLOGY METHOD 01/09/2025 7:32 PM EDT [facility] Lymphocytes Absolute 2.33 1.00 - 5.00 K/mcL LAB HEMETOLOGY METHOD 01/09/2025 7:32 PM EDT [facility] Monocytes Absolute 0.65 0.20 - 1.00 K/mcL LAB HEMETOLOGY METHOD 01/09/2025 7:32 PM EDT [facility] Eosinophils Absolute 0.08 0.00 - 0.50 K/[facility] LAB HEMETOLOGY METHOD 01/09/2025 7:32 PM EDT [facility] Basophils Absolute 0.07 0.00 - 0.20 K/[facility] LAB HEMETOLOGY METHOD 01/09/2025 7:32 PM EDT [facility] Immature Granulocytes Absolute 0.03 0.00 - 0.03 K/[facility] LAB HEMETOLOGY METHOD 01/09/2025 7:32 PM EDT [facility] Blood Venous blood specimen / Unknown Venipuncture / Unknown 01/09/2025 2:39 PM EDT 01/09/2025 2:39 PM EDT us Camacho Tello [employer] LAB BLOOD ORDERABLES Final Resul t [facility] [address] [place] [address], * Iron and TIBC (01/09/2025 2:39 PM EDT) Iron 146 50 - 160 mcg/dL LAB CHEMISTRY METHOD 01/09/2025 7:41 PM EDT [facility] TIBC 299 250 - 450 mcg/dL LAB CHEMISTRY METHOD 01/09/2025 7:41 PM EDT [facility] Iron Saturation 49 20 - 50 % LAB CHEMISTRY METHOD 01/09/2025 7:41 PM EDT [facility] Blood Venous blood specimen / Unknown Venipuncture / Unknown 01/09/2025 2:39 PM EDT 01/09/2025 2:39 PM EDT us Janice Tello [employer] LAB BLOOD ORDERABLES Final Resul t Performing Organization Address [facility] de Phone Number [facility] [address] [place] [address], [place] [phone] * (ABNORMAL) Reticulocyte count (01/09/2025 2:39 PM EDT) Retic Ct Abs 0.100(H) 0.030 - 0.090 M/mcL LAB HEMETOLOGY METHOD 01/09/2025 7:32 PM EDT [facility] Retic Ct Pct 2.3(H) 0.7 - 1.7 % LAB HEMETOLOGY METHOD 01/09/2025 7:32 PM EDT [facility] Immature Retic Fract 11.8 2.3 - 15.9 % LAB HEMETOLOGY METHOD 01/09/2025 7:32 PM EDT [facility] Reticulocyte Hemoglobin 34.6 >29.0 pcg LAB HEMETOLOGY METHOD 01/09/2025 7:32 PM EDT [facility] Blood Venous blood specimen / Unknown Venipuncture / Unknown 01/09/2025 2:39 PM EDT 01/09/2025 2:39 PM EDT us Janice Tello [employer] LAB BLOOD ORDERABLES Final Resul t Performing Organization Address City/[facility]/ZIP Co de Phone Number [facility] [address] [place] [address], [place] [phone] * Ferritin (01/09/2025 2:39 PM EDT) Ferritin 124 26 - 388 ng/mL LAB CHEMISTRY METHOD 01/09/2025 7:41 PM EDT [facility] Blood Venous blood specimen / Unknown Venipuncture / Unknown 01/09/2025 2:39 PM EDT 01/09/2025 2:39 PM EDT us Janice Tello [employer] LAB BLOOD ORDERABLES Final Resul t Performing Organization Address [facility] Co de Phone Number [facility] [address] [place] [address], [place] [phone] * Creatine kinase (01/09/2025 2:39 PM EDT) [facility] Total CK 123 22 - 269 unit/L LAB CHEMISTRY METHOD 01/09/2025 7:41 PM EDT [facility] Blood Venous blood specimen / Unknown Venipuncture / Unknown 01/09/2025 2:39 PM EDT 01/09/2025 2:39 PM EDT us Janice Tello [employer] LAB BLOOD ORDERABLES Final Resul t Performing Organization Address [facility] de Phone Number [facility] [address] [place] [address], [place] [phone] * Interferon gamma interpretation (01/07/2025 2:50 PM EDT) [facility] Quantiferon Plus Interpretation Negative Negative LAB CHEMISTRY METHOD 01/09/2025 10:51 AM EDT [facility] Blood Venous blood specimen / Unknown Venipuncture / Unknown 01/07/2025 2:50 PM EDT 01/07/2025 2:50 PM EDT us Xenia Son PA LAB BLOOD ORDERABLES Final Re sult Performing Organization Address [facility]/ZIP Co de Phone Number [facility] [address] [place] [address], [place] [phone] * Interferon gamma antigen 2 (01/07/2025 2:50 PM EDT) Blood Venous blood specimen / Unknown Venipuncture / Unknown 01/07/2025 2:50 PM EDT 01/07/2025 2:50 PM EDT us Xenia RUTH LAB BLOOD ORDERABLES Final Re sult [facility] [address] [place] [address], [place] [phone] * Interferon gamma antigen 1 (01/07/2025 2:50 PM EDT) Blood Venous blood specimen / Unknown Venipuncture / Unknown 01/07/2025 2:50 PM EDT 01/07/2025 2:50 PM EDT us Xenia RUTH LAB BLOOD ORDERABLES Final Re sult Performing Organization Address [facility]/ZIP Co de Phone Number [facility] [address] [place] [address], [place] [phone] * Interferon gamma mitogen (01/07/2025 2:50 PM EDT) Blood Venous blood specimen / Unknown Venipuncture / Unknown 01/07/2025 2:50 PM EDT 01/07/2025 2:50 PM EDT us Xenia RUTH LAB BLOOD ORDERABLES Final Re sult Performing Organization Address [facility]/ZIP Co de Phone Number [facility] [address] [place] [address], [place] [phone] * Interferon gamma NIL (01/07/2025 2:50 PM EDT) Blood Venous blood specimen / Unknown Venipuncture / Unknown 01/07/2025 2:50 PM EDT 01/07/2025 2:50 PM EDT us Xenia RUTH LAB BLOOD ORDERABLES Final Re sult Performing Organization Address City/[facility]/ZIP Co de Phone Number [facility] [address] [place] [address], [place] [phone] * Hepatitis B e antibody (01/07/2025 2:50 PM EDT) Hepatitis Be Antibody Nonreactive Nonreactive 01/10/2025 6:34 AM EDT [facility] Comment: Test performed at [facility], [address], [place] [address] Adela Jung MD, PhD - Public Health Aides Teacher Blood Venous blood specimen / Unknown Venipuncture / Unknown 01/07/2025 2:50 PM EDT 01/07/2025 2:50 PM EDT us Xeniaaniya Son PA LAB BLOOD ORDERABLES Final Re sult [facility] [address] [place] [address] * Hepatitis B e antigen (01/07/2025 2:50 PM EDT) Hepatitis Be Antigen Nonreactive Nonreactive 01/10/2025 6:34 AM EDT [facility] Comment: Test performed at [facility], [address] [place] [address] Adela Jung MD, PhD - Public Health Aides Teacher Blood Venous blood specimen / Unknown Venipuncture / Unknown 01/07/2025 2:50 PM EDT 01/07/2025 2:50 PM EDT us Xeniabecki Son PA LAB BLOOD ORDERABLES Final Re sult [facility] [address] [place] [address] * C-reactive protein (01/07/2025 2:50 PM EDT) Pathologist [facility] C-Reactive Protein <0.29 <=0.50 mg/dL LAB CHEMISTRY METHOD 01/07/2025 7:00 PM EDT [facility] Blood Venous blood specimen / Unknown Venipuncture / Unknown 01/07/2025 2:50 PM EDT 01/07/2025 2:50 PM EDT us Xenia RUTH LAB BLOOD ORDERABLES Final Re sult [facility] [address] [place] [address], [place] [phone] * (ABNORMAL) Comprehensive metabolic panel (01/07/2025 2:50 PM EDT) Pathologist [facility] Sodium 136 133 - 145 mmol/L LAB CHEMISTRY METHOD 01/07/2025 7:24 PM [facility] Potassium 4.0 3.5 - 5.5 mmol/L LAB CHEMISTRY METHOD 01/07/2025 7:24 PM [facility] Chloride 102 96 - 110 mmol/L LAB CHEMISTRY METHOD 01/07/2025 7:24 PM [facility] CO2 23 21 - 32 mmol/L LAB CHEMISTRY METHOD 01/07/2025 7:24 PM [facility] Anion Gap 11 3 - 11 LAB CHEMISTRY METHOD 01/07/2025 7:24 PM [facility] Glucose 199(H) 70 - 100 mg/dL LAB CHEMISTRY METHOD 01/07/2025 7:24 PM [facility] BUN 13 5 - 25 mg/dL LAB CHEMISTRY METHOD 01/07/2025 7:24 PM [facility] Creatinine 1.12 0.70 - 1.30 mg/dL LAB CHEMISTRY METHOD 01/07/2025 7:24 PM [facility] eGFR 75 >=60 mL/min/1. 73m2 LAB CHEMISTRY METHOD 01/07/2025 7:24 PM [facility] Comment:Calculation based on the Chronic Kidney Disease Epidemiology Collaboration (CKD-EPI) equation refit without adjustment for race. BUN/Creatinine Ratio 11.6 LAB CHEMISTRY METHOD 01/07/2025 7:24 PM [facility] Calcium 9.9 8.5 - 10.5 mg/dL LAB CHEMISTRY METHOD 01/07/2025 7:24 PM EDT [facility] AST (SGOT) 14 10 - 42 unit/L LAB CHEMISTRY METHOD 01/07/2025 7:24 PM EDT [facility] ALT (SGPT) 27 10 - 60 unit/L LAB CHEMISTRY METHOD 01/07/2025 7:24 PM EDT [facility] Alkaline Phosphatase 86 42 - 121 unit/L LAB CHEMISTRY METHOD 01/07/2025 7:24 PM EDT [facility] Total Protein 7.8 6.0 - 8.0 g/dL LAB CHEMISTRY METHOD 01/07/2025 7:24 PM [facility] Albumin 3.9 3.2 - 5.0 g/dL LAB CHEMISTRY METHOD 01/07/2025 7:24 PM EDT [facility] Total Bilirubin 0.4 0.0 - 1.4 mg/dL LAB CHEMISTRY METHOD 01/07/2025 7:24 PM EDT [facility] Blood Venous blood specimen / Unknown Venipuncture / Unknown 01/07/2025 2:50 PM EDT 01/07/2025 2:50 PM EDT us Xenia RUTH LAB BLOOD ORDERABLES Final Re sult [facility] [address] [place] [address], * Lipid panel with reflex to direct LDL (10/17/2024 2:48 PM EDT) Cholesterol 98 0 - 200 mg/dL LAB CHEMISTRY METHOD 10/17/2024 8:13 PM EDT [facility] Triglycerides 89 0 - 150 mg/dL LAB CHEMISTRY METHOD 10/17/2024 8:13 PM EDT [facility] HDL 51 >=40 mg/dL LAB CHEMISTRY METHOD 10/17/2024 8:13 PM EDT [facility] LDL Calculated 29 0 - 100 mg/dL LAB CHEMISTRY METHOD 10/17/2024 8:13 PM EDT [facility] VLDL Cholesterol Rajeev 17.8 mg/dL LAB CHEMISTRY METHOD 10/17/2024 8:13 PM EDT [facility] Non HDL Chol. (LDL+VLDL) 47 <145 mg/dL LAB CHEMISTRY METHOD 10/17/2024 8:13 PM EDT [facility] Chol/HDL Ratio 1.9 0.0 - 4.4 LAB CHEMISTRY METHOD 10/17/2024 8:13 PM EDT [facility] Blood Venous blood specimen / Unknown Venipuncture / Unknown 10/17/2024 2:48 PM EDT 10/17/2024 2:48 PM EDT us Camacho [facility] LAB BLOOD ORDERABLES Final Resul t Performing Organization Address City/[facility]/ZIP Co de Phone Number [facility] [address] [place] [address], [place] [phone] * Hemoglobin A1c (10/17/2024 2:48 PM EDT) Hemoglobin A1C 6.0 <6.5 % LAB CHEMISTRY METHOD 10/17/2024 9:34 PM EDT [facility] Mean Bld Glu Estim. 126 mg/dL LAB CHEMISTRY METHOD 10/17/2024 9:34 PM EDT [facility] Blood Venous blood specimen / Unknown Venipuncture / Unknown 10/17/2024 2:48 PM EDT 10/17/2024 2:48 PM EDT us Camacho Tello [employer] LAB BLOOD ORDERABLES Final Resul t [facility] [address] [place] [address], [place] [phone] from Last 3 Months or Most Recently Relevant to Health Maintenance Insurance MEDICA[place] - [place] MEDICARE Care Teams Fine Dining Server Relationship Specialty Start Date End Date Mo Magana DO [address] [place] [id number] PCP - General 08/14/22
== END 2025-04-04 14:53 | disposition home or self-care (01) ==
LOC: HO.MRI 14:52
PROVIDERS: Visit Provider Orthopaedic Surgery
DX: M54.2 Cervicalgia (principal)
CPT/HCPCS: 72141

== ENCOUNTER 2025-04-06 14:56 | Inpatient (IN) | payer MEDICARE, MEDICAID, SELFPAY ==
--- NOTE | ~2025-04-06 | CT_ITS ---
CLINICAL HISTORY: L face numbness CT angiography head and neck with contrast. 3D Postprocessing. Comparison: None provided Findings: Mild calcified atherosclerotic disease of the proximal internal carotid arteries. Moderate calcified atherosclerotic disease of the cavernous portion of the internal carotid arteries. Intracranial arteries are patent. No aneurysm, dissection, hemodynamically significant stenoses, or occlusion. No abnormal intracranial enhancement. No significant stenosis of the internal carotid arteries. The visualized thyroid gland is unremarkable. No cervical mass or fluid collection. Lung apices clear. No acute fracture. IMPRESSION: 1. Moderate calcified atherosclerotic disease of the cavernous internal carotid arteries. 2. Mild calcified atherosclerotic disease of the proximal internal carotid arteries. 3. No intracranial aneurysm, dissection, hemodynamically significant stenosis, or occlusion. 4. No acute intracranial findings. This document has been electronically signed by: Lucien Lombardi MD on 04/06/2025 20:31:28
--- NOTE | ~2025-04-06 | MR_ITS ---
EXAMINATION: MR BRAIN WITHOUT CONTRAST CLINICAL INFORMATION: Facial numbness, left side. 59-year-old male. COMPARISON: No prior MRI. CT head 04/06/2025. TECHNIQUE: MRI of the brain was obtained using routine sequences without contrast. Exam performed on a Siemens 1.5 Litzy high-field unit. FINDINGS: There is no diffusion restriction. There is no intracranial hemorrhage, acute infarction, mass effect, or edema. Ventricles, sulci, and cisterns are normal in size and configuration for patient age. No shift of midline. No abnormal hemosiderin deposition is identified. There are a few scattered punctate and minimally confluent foci of white matter T2 hyperintensity in the periventricular, subcortical, and hemispheric deep white matter. These foci are nonspecific but statistically most likely relate to small vessel ischemic changes. Midline structures appear normally formed. The pituitary gland appears normal. Posterior fossa structures appear normal. Cerebellar tonsils are appropriately located. Major flow voids are preserved within the skull base. The globes and orbital contents demonstrate no abnormalities. Paranasal sinuses are clear bilaterally. There is erosion of the anterior membranous nasal septum. The mastoids and tympanic cavities are normally aerated. Extracranial soft tissues demonstrate no abnormalities. No suspicious bone marrow changes are evident. 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 Atlantoaxial joint demonstrate mild to moderate degenerative changes. MR/MR head/brain wo con IMPRESSION: 1. No evidence of intracranial hemorrhage, acute infarction, mass effect, or edema. 2. Mild changes of small vessel ischemia. Electronically signed by: Bhavesh Saravia MD 04/07/2025 10:13 AM EDT
--- NOTE | ~2025-04-06 | CT_ITS ---
EXAMINATION: CT HEAD WITHOUT CONTRAST CLINICAL INFORMATION: Facial numbness COMPARISON: None available. TECHNIQUE: Contiguous axial imaging was performed from the skull base to vertex without intravenous administration of contrast. This CT examination was performed using dose optimization techniques as appropriate, variously including the following: *Automated exposure control *Adjustment of mA and/or kV according to patient size (this includes techniques or standardized protocols for targeted exams where dose is matched to indication/reason for exam; i.e. extremities or head) *Use of iterative reconstruction technique FINDINGS: There is no acute ischemic change. There is no intracranial hemorrhage. There is no mass-effect or midline shift. Basal cisterns and ventricles are within normal limits for age/cerebral volume. Orbits are symmetrical and unremarkable. Paranasal sinuses and mastoid air cells are pneumatized. There are no bony abnormalities. CT/CT head/brain wo IV con IMPRESSION: No acute intracranial abnormality. Electronically signed by: Ton De La Rosa MD 04/06/2025 04:13 PM EDT
[2025-04-06 15:02] VITALS: BP 163/83; PULSE 82; RESP 18; TEMP 36.8; O2SAT 97; BMI 38.7
--- NOTE | 2025-04-06 15:07 | ECG_ITS ---
Test Reason : nuerologlical s-ymtom Blood Pressure : */* mmHG Vent. Rate : 76 BPM Atrial Rate : 76 BPM P-R Int : 150 ms QRS Dur : 90 ms QT Int : 376 ms P-R-T Axes : 31 6 33 degrees QTcB Int : 423 ms Normal sinus rhythm Normal ECG No previous ECGs available Referred By: Cullen Valdez Electronically Signed By: JENI BILLINGS MD
--- NOTE | 2025-04-06 15:09 | ED_ITS ---
HPI - General Adult General Chief complaint: Neuro Symptoms/Deficit Stated complaint: L arm numb, L facial numbness, tingling Time Seen by Provider: 04/06/25 17:05 Source: patient Mode of arrival: ambulatory Limitations: no limitations History of Present Illness ED Provider: Dr. Martha Goodman HPI narrative: Patient comes to the emergency room complaining of left facial numbness and tingling. According to the patient, for couple of months, he has been experiencing numbness and tingling in the left arm constantly. Patient has been seen by Orthopedics and an MRI was requested and done a few days ago. Patient reports that the numbness and tingling in the left extremity is known to him. However, today when he woke up, he noticed that the left side of the face was numb. Patient called his orthopedic surgeon and asked him to come to the emergency room to rule out a stroke. Related Data Home Medications ?Medication ?Instructions ?Recorded ?Confirmed amlodipine 5 mg tablet 5 mg PO DAILY 03/17/2504/06 gabapentin 300 mg capsule 300 mg PO BID 03/17/2504/06 glipizide 5 mg tablet, extended 5 mg PO TID 03/17/25 1 release 24 hr ibuprofen 800 mg tablet 800 mg PO BID PRN Pain 03/1704/06/25 lorazepam 0.5 mg tablet 0.5 mg PO BID 03/17/2504/06 losartan 100 mg tablet 100 mg PO DAILY 03/17/2512/24 metformin 1,000 mg tablet 1,000 mg PO BID 03/17/2512/24 tamsulosin 0.4 mg capsule 0.4 mg PO DAILY 03/17/2512/24 rosuvastatin 10 mg tablet 10 mg PO BEDTIME 04/06/25 upadacitinib 45 mg tablet,extended 45 mg PO DAILY 12/2404/06/25 release 24 hr (Rinvoq) Allergies Allergy/AdvReac Type Severity Reaction Status Date / Time No Known Allergies Allergy Verified 04/06/25 15:04 Review of Systems 2 Review of Systems: Constitutional : No Weight loss, No Fever, No Chills, No Night Sweats, No Fatigue, No Malaise ENT/Mouth : No Hearing loss, No Ear Pain, No Nasal Congestion, No Sinus Pain, No Hoarseness, No sore throat, No Rhinorrhea, No Swallowing Difficulty Eyes: No Eye Pain, No Swelling, No Redness, No Foreign Body, No Discharge, No Vision Changes Cardiovascular : No Chest Pain, No SOB, No Dyspnea on Exertion, No Orthopnea, No Edema, No Palpitations Respiratory : No Cough, No Sputum, No Wheezing, No Smoke Exposure, No Dyspnea Gastrointestinal : No Nausea, No Vomiting, No Diarrhea, No Constipation, No abdominal Pain, No Hematochezia, No Melena Genitourinary : no irregular bleeding, No Dysuria, No Urinary Frequency, No Hematuria, No Urinary Incontinence, No Urgency, No Flank Pain, No Urinary Flow Changes, No Hesitancy Musculoskeletal : No joint pain, No Myalgias, No Joint Swelling Skin : No Skin Lesions, No rash Neuro : No Weakness, chronic numbness tingling and pain in the left shoulder to the fingertips. New onset left facial numbness and tingling Psych : No Anxiety/Panic, No Depression, No SI/HI/AH/VH, No Social Issues, Heme/Lymph: No Bruising, No Bleeding,No Lymphadenopathy Endocrine : No Polyuria, No Polydipsia, No Temperature Intolerance [facility] Past Medical History Medical History Crohn disease HLD (hyperlipidemia) Class 3 obesity Neuropathy Hypertension Diabetes Surgical History History of intestinal surgery Social History Social History (Updated 03/17/25 @ 15:31 by MAILE Blackman) Household Members: None Housing: Apartment Do you presently have visiting nurse or other home services: No Alcohol intake: former Patient Tobacco Use Status: Never used Tobacco Substance Use Type: Marijuana service: No Current occupational status: disabled Current occupation: right hand dominant Physical Exam ED Exam Exam: Appearance: Alert. Oriented X3. No acute distress. Eyes: Pupils equal, round and reactive to light. ENT: Pharynx normal. Neck: Normal inspection. Neck supple. No lymph nodes noted. No crepitus CVS: Normal heart rate and rhythm. Pulses normal. Normal S1 and S2 Respiratory: No respiratory distress. Breath sounds normal. No Wheezing. No rales Abdomen: Soft and nontender. No rigidity. No distention. Skin: Skin warm and dry. Normal skin color. Normal skin turgor. Extremities: No lower extremity edema. No Lacerations. No Rash. Patient has decreased sensation on the left cheek. Otherwise, patient has normal strength in both upper and lower extremities. Patient states that he has decreased sensation bilateral lower extremities, patient known to have diabetic neuropathy Neuro: Oriented X 3. No motor deficit. No sensory deficit. Moving all extremities. No slurred speech. CN 2 through 12 grossly intact Psych: calm, cooperative, normal affect Vital Signs: Vital Signs - 24 hr 04/06/25 15:02 04/06/25 17:04 04/06/25 18:16 Temperature 98.2 F 98.1 F 98.1 F Pulse Rate 82 74 67 Respiratory Rate 18 16 13 Blood Pressure 163/83 H 130/63 118/71 Pulse Oximetry 97 97 98 Oxygen Delivery Method Room Air Room Air Room Air 04/06/25 19:14 Temperature 98.0 F Pulse Rate 63 Respiratory Rate 16 Blood Pressure 125/85 Pulse Oximetry 98 Oxygen Delivery Method Room Air BMI result Body Mass Index 38.7 NIH Stroke Scale Internal: Initial- Upon Arrival Level of Consciousness: Alert Level of Consciousness Questions: Answers both questions correctly Level of Consciousness Commands: Performs both tasks correctly Best Gaze: Normal Visual: No visual loss Facial Palsy: Normal Motor Arm (Right): No drift Motor Arm (Left): No drift Motor Leg (Right): No drift Motor Leg (Left): No drift Limb Ataxia: Absent Sensory: Normal Best Language: No aphasia Dysarthia: Normal Extinction and Inattention: No abnormality Score: 0 Course Course Course Narrative: RME: 59 year male history diabetes, hypertension, cervical radiculopathy presents to the ED for left arm numbness with the past 3 weeks from referred neck pain and also left facial numbness since last night. NIH score is 0. Patient was informed by primary care provider come to the ED. Labs EKG head CT scan ordered. Facial numbness began since last night. Patient is out of window for TNA. Medications Administered Generic Name Dose Route Start Last Admin Trade Name Freq PRN Reason Stop Dose Admin Atorvastatin Calcium 40 mg 04/06/25 22:30 04/07/25 20:27 Atorvastatin Calcium 40 Mg Tablet PO 40 mg BEDTIME RAINE Administration Enoxaparin Sodium 40 mg 04/06/25 23:00 04/07/25 22:23 Enoxaparin Sodium 40 Mg/0.4 Ml Syringe SUBCUT 40 mg Q24H RAINE Administration Gabapentin 300 mg 04/06/25 22:15 04/07/25 20:27 Gabapentin 300 Mg Capsule PO 300 mg BID RAINE Administration Insulin Human Lispro 0 unit 04/07/25 07:30 04/07/25 21:38 Insulin Lispro 100 Unit/Ml 3 Ml Vial SUBCUT 2 unit QIDACHS RAINE Administration Protocol Lorazepam 0.5 mg 04/06/25 22:15 04/07/25 20:28 Lorazepam 0.5 Mg Tablet PO 0.5 mg BID RAINE Administration Oxycodone HCl 5 mg 04/06/25 22:18 04/07/25 21:39 Oxycodone Hcl Immed Release 5 Mg Tablet PO 5 mg Q6H PRN Administration Pain, Severe (Pain Scale 7-10) Sodium Chloride 3 ml 04/07/25 00:00 04/07/25 20:28 0.9 % Sodium Chloride Flush 3 Ml Syringe IVFLUSH 3 ml QSHIFT RAINE Administration Tamsulosin HCl 0.4 mg 04/07/25 09:00 04/07/25 09:23 Tamsulosin Hcl 0.4 Mg Capsule PO 0.4 mg DAILY RAINE Administration Discontinued Medications Generic Name Dose Route Start Last Admin Trade Name Freq PRN Reason Stop Dose Admin Iohexol 75 ml 04/06/25 19:22 04/06/25 19:22 Iohexol 350 Mg/Ml 100 Ml Infus..Btl IV 04/06/25 19:23 75 ml ONCE ONE Administration Medical Decision Making Medical Decision Making [facility] Narrative: My interpretation of labs: No significant abnormality in patient's hematology and chemistry, hemoglobin is slightly decreased at 12.7. No previous labs for comparison. CT scan of the head does not show any acute abnormalities. CTA: Moderate calcified the sclerosis, no intracranial aneurysm, no acute intracranial findings MRI of the cervical spine: To particular disc herniation C6-C7 with impingement of C7 nerve root Patient continues having left-sided facial numbness/tingling. I discussed the above-mentioned with Dr. Forbes, patient being admitted Patient agrees with the above-mentioned plan Differential Diagnosis Differential Diagnoses: The differential diagnosis associated with the presentation includes (Radiculopathy, herniated discs, TIA, CVA) Admission/Observation Consideration of admission/observation: Escalation of care including admission/observation considered (Given patient's new symptoms of facial numbness, admission has been considered) Consult Healthcare Provider Management of the patient was discussed with: Hospitalist Lab Data MDM Lab Attestation statement: I reviewed the patient's lab results. 04/07/25 04:18 04/07/25 04:18 Labs: Lab Results 04/06/25 04/06/25 Range/Units 15:47 17:07 WBC 5.7 (4.8-10.8) X10*3/uL RBC 4.17 L (4.60-5.80) X10*6/uL Hgb 12.7 L (14.0-18.0) g/dl Hct 36.4 L (42.0-52.0) % MCV 87.3 (80.0-98.0) fL MCH 30.5 (27.0-33.0) pg MCHC 34.9 (31.0-36.0) g/dl RDW 13.1 (11.0-16.0) % Plt Count 175 (160-400) X10*3/uL MPV 9.5 (9.4-12.4) fL Immature Gran % (Auto) 0.3 (0.0-0.4) % Neut % (Auto) 52.7 (45-73) % Lymph % (Auto) 36.9 (20-40) % [place] % (Auto) 9.1 (2-11) % Eos % (Auto) 0.5 (0-4) % Baso % (Auto) 0.5 (0-2) % Lymph # (Auto) 2.1 (1.2-4.9) X10*3/uL [place] # (Auto) 0.5 (0.1-1.2) X10*3/uL Eos # (Auto) 0.0 (0.0-0.4) X10*3/uL Baso # (Auto) 0.0 (0.0-0.2) X10*3/uL Abs Immat Gran (auto) 0.02 (0.00-0.03) X10*3/uL Absolute Neuts (auto) 3.0 (2.0-8.3) x10*3/uL Absolute Nucleated RBC 0.000 (0.0-0.012) X10*3/uL Nucleated RBC % (auto) 0.0 (0.0-0.2) /100WBC Sodium 137 (135-145) mmol/L Potassium 4.3 (3.3-5.1) mmol/L Chloride 105 (96-108) mmol/L Carbon Dioxide 24 (22-29) mmol/L Anion Gap 12 (12-20) BUN 19 H (9-16) mg/dL Creatinine 1.15 (0.5-1.4) mg/dL Estim Creat Clear Calc 93.7 Estimated GFR > 60 Random Glucose 88 (60-115) mg/dL Calcium 9.4 (8.4-10.2) mg/dL Total Bilirubin 0.7 (0.0-1.0) mg/dL AST 35 (5-37) U/L ALT 20 (0-40) U/L Alkaline Phosphatase 51 (39-117) U/L Troponin I High Sens < 2.7 (<3.5-35.0) ng/L Total Protein 7.7 (6.5-8.0) g/dL Albumin 4.8 (3.5-5.0) g/dL Urine Color Yellow Urine Appearance Clear Urine pH 5.5 (5.0-9.0) Ur Specific [place] 1.015 (1.005-1.025) Urine Protein Trace (Neg-Trace) mg/dL Urine Glucose (UA) Negative (Negative) mg/dL Urine Ketones Negative (Negative) mg/dL Urine Blood Negative (Negative) Urine Nitrite Negative (Negative) Ur Leukocyte Esterase Negative (Negative) Independent Interpretation I performed an independent interpretation of an: CT Scan Radiology Impression Discussion of test interpretation with radiology: I have reviewed the radiologist's reading. Radiologist Impression: There is no acute ischemic change. There is no intracranial hemorrhage. There is no mass-effect or midline shift. Basal cisterns and ventricles are within normal limits for age/cerebral volume. Orbits are symmetrical and unremarkable. Paranasal sinuses and mastoid air cells are pneumatized. There are no bony abnormalities. 1. No compression fractures or listhesis normal cervical lordosis. 2. Normal caliber and signal cervical cord 3. Subarticular disc herniation C6-7 on the left encroaching on the neural foramina with impingement of C7 exiting nerve root on the left 4. Spur disc complexes C5-6 bilaterally there is impingement of C6 exiting nerve root on the right 5. Small focal central disc herniation C3-4 level with mild ventral compression thecal sac but no cord impingement. Critical Care Time Critical Care Time Critical Care Time: Yes Total Critical Care Time: 60 Attestation: I have personally provided critical care time. Time includes review of lab data, radiology results, discussion with consultants, and monitoring for potential decompensation. Intervention performed as documented. Discharge Plan Discharge Clinical Impression: Facial paresthesia Patient Disposition: Admitted As Inpatient Discharge Date/Time: 04/07/25 17:15
--- NOTE | 2025-04-06 15:40 | MHC.EDTECH ---
delay ekg due to ekg machine at used
[2025-04-06 15:51] LABS: MANUAL DIFF FLAG NO
[2025-04-06 15:53] LABS: Hematocrit 36.4 % (42.0-52.0); Hemoglobin 12.7 g/dl (14.0-18.0); Imm Gran Abs Auto 0.02 X10*3/uL (0.00-0.03); Imm Gran Pct Auto 0.3 % (0.0-0.4); Lymphocytes Absolute Auto 2.1 X10*3/uL (1.2-4.9); Mean Corpuscular HGB Conc 34.9 g/dl (31.0-36.0); Mean Corpuscular Hemoglobin 30.5 pg (27.0-33.0); Mean Corpuscular Volume 87.3 fL (80.0-98.0); NRBC Abs Auto 0.000 X10*3/uL (0.0-0.012); NRBC Pct Auto 0.0 /100WBC (0.0-0.2); Platelet Count 175 X10*3/uL (160-400); Red Blood Count 4.17 X10*6/uL (4.60-5.80); White Blood Count 5.7 X10*3/uL (4.8-10.8)
[2025-04-06 16:08] LABS: Alanine Aminotransferase 20 U/L (0-40); Albumin Level 4.8 g/dL (3.5-5.0); Alkaline Phosphatase 51 U/L (39-117); Anion Gap 12 (12-20); Aspartate Amino Transferase 35 U/L (5-37); Blood Urea Nitrogen 19 mg/dL (9-16); Calcium 9.4 mg/dL (8.4-10.2); Carbon Dioxide 24 mmol/L (22-29); Chloride 105 mmol/L (96-108); Creatinine Clr Calc Pharmacy 93.7; Estimated Glomerular Filt Rate > 60; Potassium 4.3 mmol/L (3.3-5.1); Sodium 137 mmol/L (135-145); Total Protein 7.7 g/dL (6.5-8.0)
[2025-04-06 16:15] LABS: Troponin-I High Sensitivity < 2.7 ng/L (<3.5-35.0)
[2025-04-06 17:04] VITALS: BP 130/63; PULSE 74; RESP 16; TEMP 36.7; O2SAT 97
[2025-04-06 17:17] LABS: Appearance Urine Clear; Glucose Urine UA Negative (Negative); PH 5.5 (5.0-9.0); Specific Gravity - Urine 1.015 (1.005-1.025)
--- NOTE | 2025-04-06 17:37 | PC.NURSE ---
a&ox4. vss and up to date. nsr on the cardiac technologist. pt presents to the ED c/o pain to neck w/ associated numbness/tingling to LUE x 3 weeks. pt reports he believed he pinched a nerve and was not worried about it until today when the left side of his face became numb. pt reports speaking w/ orthopedics who advised him to the come to the ED to be evaluated/ upon ED arrival - neuros intact. answering questions/following commands appropriately. face symmetrical - no facial droop noted. strength equal bilaterally in all extremities. head CT/labs obtained in triage. 20gIV in the right AC. pt pending CTA to be completed. pt on RA w/o difficulty - no sob/wob noted. respirations even/unlabored. plan of care ongoing. call garza placed within reach.
[2025-04-06 18:16] VITALS: BP 118/71; PULSE 67; RESP 13; TEMP 36.7; O2SAT 98
--- OUTSIDE RECORDS SUMMARY | 2025-04-06 18:38 | XMS_ITS | Clinical Summary ---
Author Organization [facility] Address [address] [place] [address] Phone Care Team Providers Care Electrical Instrumentation Technician Name Role Phone Eliebretin Mo Primary Care Provider [phone] Allergies Active Allergy Reactions Criticality Noted Date [...] disease of small int estine with fistula ([facility] V24, [facility] V28) 07/15/2024 Encounters Date Type Department Care Team Description 02/20/2025 Telephone Gastroenterology [facility] [address] [phone] Xenia Son PA 02/17/2025 Telephone Gastroenterology [facility] 175 [facility] [address] [phone] Xenia Son PA 02/12/2025 Telephone Gastroenterology [facility] 175 [facility] [address] [phone] Xenia Son PA 02/05/2025 7:40 AM EDT - 02/05/2025 11:59 PM EDT Hospital Encounter [facility] CT Scan [address] [place] [phone] Crohn's disease of small intestine with fistula ([facility] V24, [facility] V28) Discharge Disposition: Home or Self Care 01/28/2025 Telephone Gastroenterology [facility] [address] [place] [address] Xenia Son PA 01/22/2025 Lab Requisition [facility] [address] [facility] [place] [address] Janice Tello NP Urinary tract infection, site not specified; Hematuria, unspecified 01/07/2025 2:50 PM EDT Lab Draw Station - [address] [place] [address] Crohn's disease of small intestine with fistula ([facility] V24, [facility] V28) 01/07/2025 2:00 PM EDT Office Visit Gastroenterology [facility] [address] [place] [address] Xenia Son PA Crohn's disease of small intestine with fistula ([facility] V24, [facility] V28) (Primary Dx) 01/07/2025 Telephone Gastroenterology [facility] [address] [place] [address] Xenia Son PA from Last 3 Months Surgical History Surgery Date Site/Laterality Comments OTHER SURGICAL HISTORY COLONOSCOPY COLON SURGERY Medical History Medical History Date Comments Hyperlipidemia Hypertension Diabetes mellitus ([facility] V24, [facility] V28) Crohn's disease of colon with fistula ([facility] 24, [facility] V28) Irritable bowel syndrome Anxiety Depression Chronic pain disorder Arthritis Joint pain multtiple Abdominal pain despite thera py for Crohn's disease ([facility] V24, [facility] V28) Social History Tobacco Use Types [...] 2:00 PM EDT Office Visit Gastroenterology - [place] [address] [facility] [address] [place] [phone] Xenia Son PA [address] [facility] [address] [place] [address] Health Maintenance Due Date Last Done Comments [...] Crohn's disease of small intestine with fistula ([facility] V24, [facility] V28) URINALYSIS WITH REFLEX MICROSCOPIC Routine [...] Signed Date: 02/05/2025 16:07 ET Workstation ID: [id number] Transcribed By: Self Edit Transcribed Date: 02/05/2025 [...] Signed Date: 02/05/2025 16:07 ET Workstation ID: [id number] Transcribed By: Self Edit Transcribed Date: 02/05/2025 15:57 ET [address]enia RUTH IMG CT PROCEDURES Final Resul t * (ABNORMAL) Urinalysis with reflex microscopic (01/22/2025 9:00 AM EDT) Specific [place] Urine 1.030 1.003 - 1.030 LAB URINALYSIS - AUTOMATED METHOD 01/22/2025 1:06 PM [facility] pH, Urine 5.5 5.0 - 8.0 pH LAB URINALYSIS - AUTOMATED METHOD 01/22/2025 1:06 PM [facility] Leukocytes, Urine Negative Negative LAB URINALYSIS - AUTOMATED METHOD 01/22/2025 1:06 PM [facility] Nitrite, Urine Negative Negative LAB URINALYSIS - AUTOMATED METHOD 01/22/2025 1:06 PM [facility] Protein, Urine 30(A) <=Trace mg/dL LAB URINALYSIS - AUTOMATED METHOD 01/22/2025 1:06 PM [facility] Glucose, Urine Negative Negative mg/dL LAB URINALYSIS - AUTOMATED METHOD 01/22/2025 1:06 PM [facility] Ketones, Urine Trace(A) Negative mg/dL LAB URINALYSIS - AUTOMATED METHOD 01/22/2025 1:06 PM [facility] Urobilinogen, Urine 1.0 0.2 - 1.0 mg/dL LAB URINALYSIS - AUTOMATED METHOD 01/22/2025 1:06 PM [facility] Bilirubin, Urine Negative Negative LAB URINALYSIS - AUTOMATED METHOD 01/22/2025 1:06 PM [facility] Blood, Urine Negative Negative LAB URINALYSIS - AUTOMATED METHOD 01/22/2025 1:06 PM [facility] RBC, Urine 1.3 0 - 4 /HPF LAB URINALYSIS - AUTOMATED METHOD 01/22/2025 1:06 PM [facility] WBC, Urine 1.0 0 - 4 /HPF LAB URINALYSIS - AUTOMATED METHOD 01/22/2025 1:06 PM EDT [facility] Squamous Epithelial, Urine 12 0 - 60 /LPF LAB URINALYSIS - AUTOMATED METHOD 01/22/2025 1:06 PM EDT [facility] Bacteria, Urine Negative Negative /HPF LAB URINALYSIS - AUTOMATED METHOD 01/22/2025 1:06 PM EDT [facility] Hyaline Casts, Urine 0.8 0 - 3 /LPF LAB URINALYSIS - AUTOMATED METHOD 01/22/2025 1:06 PM EDT [facility] Urine Urine specimen obtained by clean catch procedure / Unknown 01/22/2025 9:00 AM EDT 01/22/2025 11:06 AM EDT us Janice Tello STRAIGHT PIN MAKING MACHINE OPERATOR LAB URINE ORDERABLES Final Resul t Performing Organization Address City/[facility]/ZIP Co de Phone Number [facility] [address] [place] [address], [place] [phone] * Culture urine (01/22/2025 9:00 AM EDT) Culture, Urine <10,000 CFU/mL gram positive cocci, insignificant count, no further workup 01/23/2025 7:44 AM EDT [facility] Urine Urine specimen obtained by clean catch procedure / Unknown 01/22/2025 9:00 AM EDT 01/22/2025 11:06 AM EDT us Camacho Tello STRAIGHT PIN MAKING MACHINE OPERATOR LAB MICROBIOLOGY - GENERAL ORDER [place] Final Result [facility] [address] [place] [address], [place] [phone] * Prostate specific antigen screen (01/09/2025 2:39 PM EDT) PSA 1.23 0.00 - 4.00 ng/mL LAB CHEMISTRY METHOD 01/09/2025 7:50 PM EDT [facility] Blood Venous blood specimen / Unknown Venipuncture / Unknown 01/09/2025 2:39 PM EDT 01/09/2025 2:39 PM EDT Narrative [facility] - 01/09/2025 7:50 PM EDT The Siemens Advia Centaur Chemiluminescent Immunoassay is used. Results obtained with different assay methods or kits cannot be used interchangeably. Results cannot be interpreted as absolute evidence of the presence or absence of malignant disease. us Camacho Tello STRAIGHT PIN MAKING MACHINE OPERATOR LAB BLOOD ORDERABLES Final Resul t [facility] [address] [place] [address], [place] [phone] * (ABNORMAL) CBC auto differential (01/09/2025 2:39 PM EDT) Only the most recent of2 resultswithin the time period is included. WBC 9.1 4.8 - 10.8 K/mcL LAB HEMETOLOGY METHOD 01/09/2025 7:32 PM EDT [facility] RBC 4.30(L) 4.50 - 5.50 M/mcL LAB HEMETOLOGY METHOD 01/09/2025 7:32 PM EDT [facility] Hemoglobin 12.3(L) 13.5 - 17.5 g/dL LAB HEMETOLOGY METHOD 01/09/2025 7:32 PM EDT [facility] Hematocrit 37.6(L) 42.0 - 54.0 % LAB HEMETOLOGY METHOD 01/09/2025 7:32 PM EDT [facility] MCV 88.3 79.0 - 98.0 FL LAB HEMETOLOGY METHOD 01/09/2025 7:32 PM EDT [facility] MCH 28.9 27.0 - 32.0 pcg LAB HEMETOLOGY METHOD 01/09/2025 7:32 PM EDT [facility] MCHC 32.7 32.0 - 37.0 g/dL LAB HEMETOLOGY METHOD 01/09/2025 7:32 PM EDT [facility] RDW 14.5 11.0 - 15.0 % LAB HEMETOLOGY METHOD [facility]/09[facility]2025 7:[facility] Platelets 286 130 - 400 K/mcL LAB HEMETOLOGY METHOD 01/09/2025 7:32 PM EDT [facility] MPV 10.1 7.0 - 11.0 FL LAB HEMETOLOGY METHOD 01/09/2025 7:[facility] NRBC 0.0 <1.0 % LAB HEMETOLOGY METHOD 01/09/2025 7:32 [facility] NRBC Absolute 0.00 <0.10 K/mcL LAB HEMETOLOGY METHOD 01/09/2025 7:32 PM [facility] Neutrophils Relative 65.3 % LAB HEMETOLOGY METHOD 01/09/2025 7:32 PM [facility] Lymphocytes Relative 25.6 % LAB HEMETOLOGY METHOD 01/09/2025 7:32 PM [facility] Monocytes Relative 7.1 % LAB HEMETOLOGY METHOD 01/09/2025 7:32 PM [facility] Eosinophils Relative 0.9 % LAB HEMETOLOGY METHOD 01/09/2025 7:32 PM EDT [facility] Basophils Relative 0.8 % LAB HEMETOLOGY METHOD 01/09/2025 7:32 PM [facility] Immature Granulocytes Relative 0.3 % LAB HEMETOLOGY METHOD 01/09/2025 7:32 PM [facility] Neutrophils Absolute 5.95 1.50 - 7.00 K/mcL LAB HEMETOLOGY METHOD 01/09/2025 7:32 PM EDT [facility] Lymphocytes Absolute 2.33 1.00 - 5.00 K/mcL LAB HEMETOLOGY METHOD 01/09/2025 7:32 PM EDT [facility] Monocytes Absolute 0.65 0.20 - 1.00 K/mcL LAB HEMETOLOGY METHOD 01/09/2025 7:32 PM EDT [facility] Eosinophils Absolute 0.08 0.00 - 0.50 K/[facility] LAB HEMETOLOGY METHOD 01/09/2025 7:32 PM EDT [facility] Basophils Absolute 0.07 0.00 - 0.20 K/[facility] LAB HEMETOLOGY METHOD 01/09/2025 7:32 PM EDT [facility] Immature Granulocytes Absolute 0.03 0.00 - 0.03 K/[facility] LAB HEMETOLOGY METHOD 01/09/2025 7:32 PM EDT [facility] Blood Venous blood specimen / Unknown Venipuncture / Unknown 01/09/2025 2:39 PM EDT 01/09/2025 2:39 PM EDT us Camacho Tello STRAIGHT PIN MAKING MACHINE OPERATOR LAB BLOOD ORDERABLES Final Resul t [facility] [address] [place] [address], * Iron and TIBC (01/09/2025 2:39 PM EDT) Iron 146 50 - 160 mcg/dL LAB CHEMISTRY METHOD 01/09/2025 7:41 PM EDT [facility] TIBC 299 250 - 450 mcg/dL LAB CHEMISTRY METHOD 01/09/2025 7:41 PM EDT [facility] Iron Saturation 49 20 - 50 % LAB CHEMISTRY METHOD 01/09/2025 7:41 PM EDT [facility] Blood Venous blood specimen / Unknown Venipuncture / Unknown 01/09/2025 2:39 PM EDT 01/09/2025 2:39 PM EDT us Janice Tello STRAIGHT PIN MAKING MACHINE OPERATOR LAB BLOOD ORDERABLES Final Resul t Performing Organization Address [facility] de Phone Number [facility] [address] [place] [address], [place] [phone] * (ABNORMAL) Reticulocyte count (01/09/2025 2:39 PM EDT) Retic Ct Abs 0.100(H) 0.030 - 0.090 M/mcL LAB HEMETOLOGY METHOD 01/09/2025 7:32 PM EDT [facility] Retic Ct Pct 2.3(H) 0.7 - 1.7 % LAB HEMETOLOGY METHOD 01/09/2025 7:32 PM EDT [facility] Immature Retic Fract 11.8 2.3 - 15.9 % LAB HEMETOLOGY METHOD 01/09/2025 7:32 PM EDT [facility] Reticulocyte Hemoglobin 34.6 >29.0 pcg LAB HEMETOLOGY METHOD 01/09/2025 7:32 PM EDT [facility] Blood Venous blood specimen / Unknown Venipuncture / Unknown 01/09/2025 2:39 PM EDT 01/09/2025 2:39 PM EDT us Janice Tello STRAIGHT PIN MAKING MACHINE OPERATOR LAB BLOOD ORDERABLES Final Resul t Performing Organization Address City/[facility]/ZIP Co de Phone Number [facility] [address] [place] [address], [place] [phone] * Ferritin (01/09/2025 2:39 PM EDT) Ferritin 124 26 - 388 ng/mL LAB CHEMISTRY METHOD 01/09/2025 7:41 PM EDT [facility] Blood Venous blood specimen / Unknown Venipuncture / Unknown 01/09/2025 2:39 PM EDT 01/09/2025 2:39 PM EDT us Janice Tello STRAIGHT PIN MAKING MACHINE OPERATOR LAB BLOOD ORDERABLES Final Resul t Performing Organization Address [facility] Co de Phone Number [facility] [address] [place] [address], [place] [phone] * Creatine kinase (01/09/2025 2:39 PM EDT) [facility] Total CK 123 22 - 269 unit/L LAB CHEMISTRY METHOD 01/09/2025 7:41 PM EDT [facility] Blood Venous blood specimen / Unknown Venipuncture / Unknown 01/09/2025 2:39 PM EDT 01/09/2025 2:39 PM EDT us Janice Tello STRAIGHT PIN MAKING MACHINE OPERATOR LAB BLOOD ORDERABLES Final Resul t Performing Organization Address [facility] de Phone Number [facility] [address] [place] [address], [place] [phone] * Interferon gamma interpretation (01/07/2025 2:50 PM EDT) [facility] Quantiferon Plus Interpretation Negative Negative LAB CHEMISTRY METHOD 01/09/2025 10:51 AM EDT [facility] Blood Venous blood specimen / Unknown Venipuncture / Unknown 01/07/2025 2:50 PM EDT 01/07/2025 2:50 PM EDT us Xenia Son PA LAB BLOOD ORDERABLES Final Re sult Performing Organization Address [facility]/ZIP Co de Phone Number [facility] [address] [place] [address], [place] [phone] * Interferon gamma antigen 2 (01/07/2025 2:50 PM EDT) Blood Venous blood specimen / Unknown Venipuncture / Unknown 01/07/2025 2:50 PM EDT 01/07/2025 2:50 PM EDT us Xenia RUTH LAB BLOOD ORDERABLES Final Re sult [facility] [address] [place] [address], [place] [phone] * Interferon gamma antigen 1 (01/07/2025 2:50 PM EDT) Blood Venous blood specimen / Unknown Venipuncture / Unknown 01/07/2025 2:50 PM EDT 01/07/2025 2:50 PM EDT us Xenia RUTH LAB BLOOD ORDERABLES Final Re sult Performing Organization Address [facility]/ZIP Co de Phone Number [facility] [address] [place] [address], [place] [phone] * Interferon gamma mitogen (01/07/2025 2:50 PM EDT) Blood Venous blood specimen / Unknown Venipuncture / Unknown 01/07/2025 2:50 PM EDT 01/07/2025 2:50 PM EDT us Xenia RUTH LAB BLOOD ORDERABLES Final Re sult Performing Organization Address [facility]/ZIP Co de Phone Number [facility] [address] [place] [address], [place] [phone] * Interferon gamma NIL (01/07/2025 2:50 PM EDT) Blood Venous blood specimen / Unknown Venipuncture / Unknown 01/07/2025 2:50 PM EDT 01/07/2025 2:50 PM EDT us Xenia RUTH LAB BLOOD ORDERABLES Final Re sult Performing Organization Address City/[facility]/ZIP Co de Phone Number [facility] [address] [place] [address], [place] [phone] * Hepatitis B e antibody (01/07/2025 2:50 PM EDT) Hepatitis Be Antibody Nonreactive Nonreactive 01/10/2025 6:34 AM EDT [facility] Comment: Test performed at [facility], [address], [place] [address] Adela Jung MD, PhD - Property Investor Blood Venous blood specimen / Unknown Venipuncture / Unknown 01/07/2025 2:50 PM EDT 01/07/2025 2:50 PM EDT us Xeniaaniya Son PA LAB BLOOD ORDERABLES Final Re sult [facility] [address] [place] [address] * Hepatitis B e antigen (01/07/2025 2:50 PM EDT) Hepatitis Be Antigen Nonreactive Nonreactive 01/10/2025 6:34 AM EDT [facility] Comment: Test performed at [facility], [address] [place] [address] Adela Jung MD, PhD - Property Investor Blood Venous blood specimen / Unknown Venipuncture / Unknown 01/07/2025 2:50 PM EDT 01/07/2025 2:50 PM EDT us Xeniabecki Son PA LAB BLOOD ORDERABLES Final Re sult [facility] [address] [place] [address] * C-reactive protein (01/07/2025 2:50 PM EDT) Pathologist [facility] C-Reactive Protein <0.29 <=0.50 mg/dL LAB CHEMISTRY METHOD 01/07/2025 7:00 PM EDT [facility] Blood Venous blood specimen / Unknown Venipuncture / Unknown 01/07/2025 2:50 PM EDT 01/07/2025 2:50 PM EDT us Xenia RUTH LAB BLOOD ORDERABLES Final Re sult [facility] [address] [place] [address], [place] [phone] * (ABNORMAL) Comprehensive metabolic panel (01/07/2025 2:50 PM EDT) Pathologist [facility] Sodium 136 133 - 145 mmol/L LAB CHEMISTRY METHOD 01/07/2025 7:24 PM [facility] Potassium 4.0 3.5 - 5.5 mmol/L LAB CHEMISTRY METHOD 01/07/2025 7:24 PM [facility] Chloride 102 96 - 110 mmol/L LAB CHEMISTRY METHOD 01/07/2025 7:24 PM [facility] CO2 23 21 - 32 mmol/L LAB CHEMISTRY METHOD 01/07/2025 7:24 PM [facility] Anion Gap 11 3 - 11 LAB CHEMISTRY METHOD 01/07/2025 7:24 PM [facility] Glucose 199(H) 70 - 100 mg/dL LAB CHEMISTRY METHOD 01/07/2025 7:24 PM [facility] BUN 13 5 - 25 mg/dL LAB CHEMISTRY METHOD 01/07/2025 7:24 PM [facility] Creatinine 1.12 0.70 - 1.30 mg/dL LAB CHEMISTRY METHOD 01/07/2025 7:24 PM [facility] eGFR 75 >=60 mL/min/1. 73m2 LAB CHEMISTRY METHOD 01/07/2025 7:24 PM [facility] Comment:Calculation based on the Chronic Kidney Disease Epidemiology Collaboration (CKD-EPI) equation refit without adjustment for race. BUN/Creatinine Ratio 11.6 LAB CHEMISTRY METHOD 01/07/2025 7:24 PM [facility] Calcium 9.9 8.5 - 10.5 mg/dL LAB CHEMISTRY METHOD 01/07/2025 7:24 PM EDT [facility] AST (SGOT) 14 10 - 42 unit/L LAB CHEMISTRY METHOD 01/07/2025 7:24 PM EDT [facility] ALT (SGPT) 27 10 - 60 unit/L LAB CHEMISTRY METHOD 01/07/2025 7:24 PM EDT [facility] Alkaline Phosphatase 86 42 - 121 unit/L LAB CHEMISTRY METHOD 01/07/2025 7:24 PM EDT [facility] Total Protein 7.8 6.0 - 8.0 g/dL LAB CHEMISTRY METHOD 01/07/2025 7:24 PM [facility] Albumin 3.9 3.2 - 5.0 g/dL LAB CHEMISTRY METHOD 01/07/2025 7:24 PM EDT [facility] Total Bilirubin 0.4 0.0 - 1.4 mg/dL LAB CHEMISTRY METHOD 01/07/2025 7:24 PM EDT [facility] Blood Venous blood specimen / Unknown Venipuncture / Unknown 01/07/2025 2:50 PM EDT 01/07/2025 2:50 PM EDT us Xenia RUTH LAB BLOOD ORDERABLES Final Re sult [facility] [address] [place] [address], * Lipid panel with reflex to direct LDL (10/17/2024 2:48 PM EDT) Cholesterol 98 0 - 200 mg/dL LAB CHEMISTRY METHOD 10/17/2024 8:13 PM EDT [facility] Triglycerides 89 0 - 150 mg/dL LAB CHEMISTRY METHOD 10/17/2024 8:13 PM EDT [facility] HDL 51 >=40 mg/dL LAB CHEMISTRY METHOD 10/17/2024 8:13 PM EDT [facility] LDL Calculated 29 0 - 100 mg/dL LAB CHEMISTRY METHOD 10/17/2024 8:13 PM EDT [facility] VLDL Cholesterol Rajeev 17.8 mg/dL LAB CHEMISTRY METHOD 10/17/2024 8:13 PM EDT [facility] Non HDL Chol. (LDL+VLDL) 47 <145 mg/dL LAB CHEMISTRY METHOD 10/17/2024 8:13 PM EDT [facility] Chol/HDL Ratio 1.9 0.0 - 4.4 LAB CHEMISTRY METHOD 10/17/2024 8:13 PM EDT [facility] Blood Venous blood specimen / Unknown Venipuncture / Unknown 10/17/2024 2:48 PM EDT 10/17/2024 2:48 PM EDT us Camacho [facility] LAB BLOOD ORDERABLES Final Resul t Performing Organization Address City/[facility]/ZIP Co de Phone Number [facility] [address] [place] [address], [place] [phone] * Hemoglobin A1c (10/17/2024 2:48 PM EDT) Hemoglobin A1C 6.0 <6.5 % LAB CHEMISTRY METHOD 10/17/2024 9:34 PM EDT [facility] Mean Bld Glu Estim. 126 mg/dL LAB CHEMISTRY METHOD 10/17/2024 9:34 PM EDT [facility] Blood Venous blood specimen / Unknown Venipuncture / Unknown 10/17/2024 2:48 PM EDT 10/17/2024 2:48 PM EDT us Camacho Tello STRAIGHT PIN MAKING MACHINE OPERATOR LAB BLOOD ORDERABLES Final Resul t [facility] [address] [place] [address], [place] [phone] from Last 3 Months or Most Recently Relevant to Health Maintenance Insurance [place] - [place]ICARE Care Teams Electrical Instrumentation Technician Relationship Specialty Start Date End Date Mo Magana DO [address] [place] [id number] PCP - General 08/14/22
--- OUTSIDE RECORDS SUMMARY | 2025-04-06 18:38 | XMS_ITS | Data Portability ---
Author Organization [facility], [facility] Address [address] [place] [address] Assessment Encounter Date Assessment Date Assessment LastModified [...] to your physical therapy appointment 2023 024 [facility] [place], [address] [place] [address], [place], [address], 4 14:53:53 physical therapist referral - Strengtheni [...] etc. Referring Physician: Lucio Kaiser, Orthopedic Surgery, [id number] Encounter Date: 09/11/2023 Physical Therapist Referral for Osteoarthritis of knee ROM, Strengthening, Conditioning, Gait Training Etc.Physical therapy to begin 7- 10 days after surgery, in an outpatient site. Please bring this script and attached protocol with you to your physical therapy appointment Referring Physician: Lucio Kaiser, Orthopedic Surgery, [id number] Encounter Date: 09/11/2023 Results Created Date Observation [...] ===== ===== ===== === Not Available [facility] ([facility]) [address], [place], [address], 09/20/2023 16:06:50 Result Notes None recorded. Medical Equipment None Reported. Allergies Allergen ID Allergen Name Allergen Category Reaction Reaction Severity Criticality Documentation Date Start Date Code Code System Note Provider Name and Address Organization Details Recorded Time [id number] Humira medicatio n Not available Not available Not available 09/11/2023 79909 4 RxNorm CHIQUITA vargas [place] - [facility] 14:55:40 Medications Name Sig Start Date [...] Address Organization Details Last Updated DateTime 09/11/2023 447539.23 g 37.5 kg/m2 185.42 cm CHIQUITA DIGGS [place] - [facility] 09/11/2023 14:55:03 Social History None recorded. Functional Status None recorded. Mental Status None recorded. Family History Nothing Reported. Medical History No medical history recorded. Past Encounters Encounter ID Performer Location Encounter Start Date Encounter Closed Date Diagnosis/Indication Diagnosis SNOMED-CT Code Diagnosis ICD10 Code Diagnosis IMO Codes Diagnosis Note [id number] MD Penelope Dutton [address] [place] [phone] 09/11/2023 14:38:30 10/01/2023 13:34:49 Osteoarthritis of right knee joint 2289354421 34307 M17.11 Osteoarthr itis of knee 310247620 M17.9 Health Concerns Section Related Observation LastModified by Organization Detai ls LastModified Time None Recorded Concern Status LastModified by Organization Details LastModified Time None Recorded Advance Directives Directive None Recorded Payers Insurance Date Sequence Insurance Name Policy Number Policy Concepcion Covered Member ID Concepcion Member ID Guarantor Name 06/28/2024 1 [facility] [employer] (MEDICAID REPLACEMENT - HMO) [id number] Donell Aguilar [id number] Donell Aguilar
--- OUTSIDE RECORDS SUMMARY | 2025-04-06 18:38 | XMS_ITS | Encounter Summary ---
Author Organization [facility] Address [address] [place] [address] Care Team Providers Care Learning Engineer Name Role Phone Mo Magana Primary Care Provider [phone] Encounter Details Date Type Department Care Team ([facility] Contact Info) Description 01/22/2025 Lab Requisition [facility] - Main Lab [address] [facility] [place] [address] Janice Tello NP [address] [place] [address] [address] [place] [address] Urinary tract infection, site not specified; Hematuria, [...] Upcoming Encounters Date Type Department Care Team ([facility] Contact Info) Description 04/13/2025 2:00 PM EDT Office Visit Gastroenterology - [place] [address] [place] [phone] Xenia Son PA [address] [facility] [address] [place] [address] documented as of this encounter Procedures Procedure [...] reflex microscopic (01/22/2025 9:00 AM EDT) Specific [place] Urine 1.030 1.003 - 1.030 LAB URINALYSIS [...] 01/22/2025 1:06 PM [facility] Squamous Epithelial, Urine 12 0 - 60 /LPF LAB URINALYSIS - AUTOMATED METHOD 01/22/2025 1:06 PM [facility] Bacteria, Urine Negative Negative /HPF LAB URINALYSIS - AUTOMATED METHOD 01/22/2025 1:06 PM [facility] Hyaline Casts, Urine 0.8 0 - 3 /LPF LAB URINALYSIS - AUTOMATED METHOD 01/22/2025 1:06 PM [facility] Urine Urine specimen obtained by clean catch procedure / Unknown 01/22/2025 9:00 AM EDT 01/22/2025 11:06 AM EDT us Camacho Tello MOBILITY MANAGER LAB URINE ORDERABLES Final Resul t [facility] [address] [place] [address], * Culture urine (01/22/2025 9:00 AM EDT) Culture, Urine <10,000 CFU/mL gram positive cocci, insignificant count, no further workup 01/23/2025 7:44 AM EDT [facility] Urine Urine specimen obtained by clean catch procedure / Unknown 01/22/2025 9:00 AM EDT 01/22/2025 11:06 AM EDT us Camacho Tello MOBILITY MANAGER LAB MICROBIOLOGY - GENERAL ORDER ARCADIO Final Result [facility] [address] [place] [address], documented in this encounter Visit Diagnoses Diagnosis Urinary tract infection, site not specified Hematuria, unspecified documented in this encounter Care Teams Learning Engineer Relationship Specialty Start Date End Date Mo Magana DO [address] [place] [id number] PCP - General 08/14/22 documented as of this encounter
[2025-04-06 19:14] VITALS: BP 125/85; PULSE 63; RESP 16; TEMP 36.7; O2SAT 98
--- NOTE | 2025-04-06 19:20 | PC.NURSE ---
This blurb writer assumed care of this Pt at 1900. Pt A&Ox3, GCS of 15. Denies any pain. States weird sensation to left side of face with numbness to left hand . Neuros intact. Pt ambulated independently to CT scan.
[2025-04-06] MEDS: iohexoL 350 MG/ML 100 ML INFUS..BTL 75 ML IV (19:22)
--- NOTE | 2025-04-06 22:01 | PC.NURSE ---
Med rec Pt able to verbalize meds using home list.
[2025-04-06 22:05] VITALS: BP 126/75; PULSE 69; RESP 18; O2SAT 95
--- NOTE | 2025-04-06 22:20 | PHA.MEDREC ---
Addendum entered by Marshal Pradhan, PharmD 04/06/25 22:45: MED REC CHECKED BY [facility] Original Note: Pharmacy Consult ? Medication Reconciliation Pharmacy has reviewed the medication reconciliation done by nursing. Spoke to patient to confirm med list
--- NOTE | 2025-04-06 22:23 | PM.IMHP ---
History of Present Illness Date of Service: 04/06/25 Attending physician on admission: Joshua Forbes Chief Complaint: facial numbness Patient is a 59-year-old male with a past medical history significant for class 3 obesity, type 2 diabetes, hypertension, hyperlipidemia and Crohn's disease, who presented to the ED due to intermittent left-sided facial numbness starting last night. The patient reports that he has been seeing an orthopedic for left-sided arm numbness and tingling as well as pain which has been persistent for the past 3 weeks. The facial numbness is new. He reports previously he worked with a [employer] for many years. He denies any headache, fever, chills, nausea, vomiting, urinary symptoms, recent tick bites or rash. He is unsure if he has had varicella in the past. No swallowing difficulties, visual changes or facial droop. No upper or lower extremity weakness. Review of Systems Constitutional: Constitutional: Denies body ache(s), Denies chills, Denies fatigue, Denies fever(s) and Denies headache(s) Eyes: Eyes: Denies change in vision ENT: Denies headache(s), Denies nasal discharge and Denies sore throat Cardiovascular: Cardiovascular: Denies chest pain, Denies rapid heart rate, Denies leg edema, Denies lightheadedness and Denies dyspnea Respiratory: Respiratory: Denies chest congestion, Denies cough, Denies dyspnea and Denies wheezing Gastrointestinal: Gastrointestinal: Denies abdominal pain, Denies diarrhea, Denies nausea and Denies vomiting Genitourinary: Genitourinary: Denies dysuria, Denies urinary frequency and Denies urinary urgency Musculoskeletal: Musculoskeletal: Denies myalgias Integumentary/Breasts: Skin/Breast: Denies rash Neurologic: Denies confusion and Denies headache(s) Psychiatric: Psychiatric: Denies confusion Endocrine: Endocrine: Denies fatigue Hematologic/Lymphatic: Hematologic/Lymphatic: Denies easy bleeding and Denies easy bruising Allergic/Immunologic: Allergic/Immunologic: Denies wheezing [facility] Medical History Crohn disease HLD (hyperlipidemia) Class 3 obesity Neuropathy Hypertension Diabetes Functional capacity: independent ambulation Surgical History (Updated 03/17/25 @ 15:31 by MAILE Blackman) History of intestinal surgery Social History (Updated 03/17/25 @ 15:31 by Randee Wallace Ellen) Alcohol intake: former Patient Tobacco Use Status: Never used Tobacco Smoked in Last 30 Days: No Use of substances other than those prescribed or required for medical reasons: Yes Substance Use Type: Marijuana Advance Directives: No Advance Directives Information Provided: Yes Current occupational status: disabled Current occupation: right hand dominant Narrative: Smokes marijuana. Disabled, no alcohol or tobacco Meds Allergies Allergy/AdvReac Type Severity Reaction Status Date / Time No Known Allergies Allergy Verified 04/06/25 15:04 Active Medications: Current Medications Atorvastatin Calcium (Atorvastatin Calcium 40 Mg Tablet) 40 mg PO BEDTIME [facility] Dextrose (Dextrose 50 % 25 Gm/50 Ml Syringe) 25 gm IVPUSH Q15M PRN; Protocol PRN Reason: per Hypoglycemia Standing Ord. Gabapentin (Gabapentin 300 Mg Capsule) 300 mg PO BID [facility] Glucose (Glucose Gel 15 Gm Gel..Gram.) 15 gm PO Q15M PRN; Protocol PRN Reason: per Hypoglycemia Standing Ord. Insulin Human Lispro (Insulin Lispro 100 Unit/Ml 3 Ml Vial) 0 unit SUBCUT QIDACHS [facility]; Protocol Lorazepam (Lorazepam 0.5 Mg Tablet) 0.5 mg PO BID [facility] Non-Formulary Medication (Upadacitinib [Rinvoq]) 45 mg PO DAILY [facility] Tamsulosin HCl (Tamsulosin Hcl 0.4 Mg Capsule) 0.4 mg PO DAILY [facility] Home Medications ?Medication ?Instructions ?Recorded ?Confirmed ?Last Taken ?Type amlodipine 5 mg tablet 5 mg PO DAILY 03/17/25 04/06/25 Unknown History gabapentin 300 mg capsule 300 mg PO BID 03/17/25 04/06/25 Unknown History glipizide 5 mg tablet, extended 5 mg PO TID 03/17/25 04/06/25 Unknown History release 24 hr ibuprofen 800 mg tablet 800 mg PO BID PRN Pain 03/17/25 04/06/25 Unknown History lorazepam 0.5 mg tablet 0.5 mg PO BID 03/17/25 04/06/25 Unknown History losartan 100 mg tablet 100 mg PO DAILY 03/17/25 04/06/25 Unknown History metformin 1,000 mg tablet 1,000 mg PO BID 03/17/25 04/06/25 Unknown History tamsulosin 0.4 mg capsule 0.4 mg PO DAILY 03/17/25 04/06/25 Unknown History rosuvastatin 10 mg tablet 10 mg PO BEDTIME 04/06/25 04/06/25 Unknown History upadacitinib 45 mg tablet,extended 45 mg PO DAILY 04/06/25 04/06/25 Unknown History release 24 hr (Rinvoq) Physical Exam Vital Signs and Narrative: Vital Signs: Last Vital Signs Temp 98.0 F 04/06/25 19:14 Pulse 69 04/06/25 22:05 Resp 18 04/06/25 22:05 BP 126/75 04/06/25 22:05 Pulse Ox 95 04/06/25 22:05 O2 Del Method Room Air 04/06/25 22:05 BMI result Body Mass Index 38.7 General: AOx3, no acute distress Resp: CTA bilaterally CVS: S1, S2, RRR GI: +BS, NT, no distention Skin: Warm, dry. no facial rash Neuro: Cranial nerves II-XII grossly intact bilaterally. Motor grossly intact bilaterally. decreased sensation L lower cheek. Extremities: No pitting edema Psych: Appropriate affect Const: General: No confusion Orientation/consciousness: No confusion Neuro: General: No confusion Results Labs 04/06/25 15:47 04/06/25 15:47 Labs: Laboratory Results - last 24 hr 04/06/25 04/06/25 15:47 17:07 MCV 87.3 MCH 30.5 MCHC 34.9 RDW 13.1 Plt Count 175 MPV 9.5 Immature Gran % (Auto) 0.3 Neut % (Auto) 52.7 Lymph % (Auto) 36.9 [place] % (Auto) 9.1 Eos % (Auto) 0.5 Baso % (Auto) 0.5 Lymph # (Auto) 2.1 [place] # (Auto) 0.5 Eos # (Auto) 0.0 Baso # (Auto) 0.0 Abs Immat Gran (auto) 0.02 Absolute Neuts (auto) 3.0 Absolute Nucleated RBC 0.000 Nucleated RBC % (auto) 0.0 Anion Gap 12 Estim Creat Clear Calc 93.7 Estimated GFR > 60 Random Glucose 88 Calcium 9.4 Total Bilirubin 0.7 AST 35 ALT 20 Alkaline Phosphatase 51 Troponin I High Sens < 2.7 Total Protein 7.7 Albumin 4.8 Urine Color Yellow Urine Appearance Clear Urine pH 5.5 Ur Specific [place] 1.015 Urine Protein Trace Urine Glucose (UA) Negative Urine Ketones Negative Urine Blood Negative Urine Nitrite Negative Ur Leukocyte Esterase Negative Imaging Radiologist's Impressions: Impressions Head CT 04/06/25 15:47 IMPRESSION: No acute intracranial abnormality. Electronically signed by: Ton De La Rosa MD 04/06/2025 04:13 PM EDT RP Assessment and Plan (1) Left facial numbness: Status: Acute (2) Anemia: Status: Acute Plan Patient is a 59-year-old male with a past medical history significant for class 3 obesity, type 2 diabetes, hypertension, hyperlipidemia and Crohn's disease, who presented to the ED due to intermittent left-sided facial numbness starting last night. Left facial numbness, TIA versus CVA - MRI brain - echo - neurology consult - tele - lipid panel normocytic anemia - B12, folate, iron herniated cervical discs - continue outpatient management with ortho Type 2 diabetes - sliding scale insulin - hold p.o. meds Hypertension, normotensive - resume current therapies when blood pressure elevates HLD - statin Crohn's disease - Rinvoq Class 3 obesity - weight loss encouraged Full code VTE prophylaxis: Lovenox Patient with left facial numbness with concern for TIA versus CVA, requiring admission for at least 2 midnights stay for further evaluation and monitoring. Quality Stroke Does the patient have a stroke diagnosis?: No VTE Prior VTE?: No VTE Risk Level:: Medical - moderate - high VTE Device Contraindication: Treatment Not Indicated VTE Drug Contraindication: N/A - Med Ordered
[2025-04-06 22:32] LABS: Glucose, Whole Blood 80 mg/dL (60-115)
[2025-04-06] MEDS: oxyCODONE HCl Immed Release 5 MG TABLET PO (22:56)
[2025-04-06] MEDS: 0.9 % Sodium Chloride Flush 3 ML SYRINGE IVFLUSH (22:58)
[2025-04-06 23:29] LABS: Folate 7.7 ng/mL (> or = 4.0); Vitamin B12 210 pg/mL (200-900)
[2025-04-07 04:26] VITALS: BP 125/77; PULSE 66; RESP 13; TEMP 36.7; O2SAT 95
[2025-04-07 04:46] LABS: MANUAL DIFF FLAG NO
[2025-04-07 04:50] LABS: Hematocrit 34.8 % (42.0-52.0); Hemoglobin 11.6 g/dl (14.0-18.0); Imm Gran Abs Auto 0.02 X10*3/uL (0.00-0.03); Imm Gran Pct Auto 0.5 % (0.0-0.4); Lymphocytes Absolute Auto 1.7 X10*3/uL (1.2-4.9); Mean Corpuscular HGB Conc 33.3 g/dl (31.0-36.0); Mean Corpuscular Hemoglobin 29.9 pg (27.0-33.0); Mean Corpuscular Volume 89.7 fL (80.0-98.0); NRBC Abs Auto 0.000 X10*3/uL (0.0-0.012); NRBC Pct Auto 0.0 /100WBC (0.0-0.2); Platelet Count 169 X10*3/uL (160-400); Red Blood Count 3.88 X10*6/uL (4.60-5.80); White Blood Count 3.9 X10*3/uL (4.8-10.8)
[2025-04-07 05:09] LABS: Anion Gap 12 (12-20); Blood Urea Nitrogen 19 mg/dL (9-16); Calcium 8.8 mg/dL (8.4-10.2); Carbon Dioxide 26 mmol/L (22-29); Chloride 106 mmol/L (96-108); Cholesterol 166 mg/dL (<200); Creatinine Clr Calc Pharmacy 98.9; Estimated Glomerular Filt Rate > 60; HDL Cholesterol 58 mg/dL (>40); Iron 227 mcg/dL (45-160); Percent Iron Saturation 78 % (15-50); Potassium 4.2 mmol/L (3.3-5.1); Sodium 140 mmol/L (135-145); Total Iron Binding Capacity 292 mcg/dL (228-428); Triglycerides 153 mg/dL (<150); Unsaturated Iron Binding 65 ug/dL
--- NOTE | 2025-04-07 06:31 | HO.NURTONUR ---
Pt from home, came in for left-sided facial numbness starting 2 nights ago. The patient reports that he has been seeing an orthopedic for left-sided arm numbness and tingling as well as pain which has been persistent for the past 3 weeks. The facial numbness is new. Pt A&Ox3, neuros intact. Reports left side neck pain with weird feeling to left side of face and numbness to left arm. Pt ambulates independently with steady gait. CTA showed Moderate calcified the sclerosis. Pt admit for TIA versus CVA with plan to MRI, echo and neuro consult. 20gIV in the right AC.
--- NOTE | 2025-04-07 07:00 | CA_ITS ---
Transthoracic Echocardiogram Patient (Last, First, Middle): Donell Aguilar E Gender: Male Date of : 1965 Age: 59 Procedure Date: 04/07/2025 Procedure Type: Transthoracic Echocardiogram Location: ER Height: 182.88 cm Weight: 129.28 kg BSA: 2.48 m2 Heart Rate: bpm BP: 125 / 77 mmHg Inspector Metal Can: ANNIKA Referring MD: Viviana Cardona PA-C Survey Researcher: Shaji Marcos MD Symptoms: TIA vs CVA w/u, facial numbness Study Quality: Fair ECG Rhythm: Sinus Conclusions: - 1. Technically limited study 2. Normal LV ejection fraction of 60 65% with grade 1 diastolic dysfunction 3. Mildly dilated left atrium 4. Calcific changes noted in the aortic valve with normal cardiac valvular Dopplers 5. Atherosclerotic changes noted in the ascending aorta Findings Left Ventricle Normal left ventricular size, thickness, and systolic function. The visually estimated ejection fraction is between 60-65%. Spectral Doppler is indicative of an impaired relaxation filling pattern. E/E prime ratio is <8, consistent with normal filling pressures. Evidence suggests grade I (mild) diastolic dysfunction. Right Ventricle The right ventricle was not well visualized. Atria The left atrium is mildly dilated. Interatrial shunt cannot be excluded by agitated saline. The right atrium was not well visualized. Aortic Valve The aortic valve was not well visualized. There is mild calcification of the aortic valve. There is no aortic valve stenosis. There is no aortic valve regurgitation. Mitral Valve Likely normal mitral valve structure and function. There is trace mitral valve regurgitation. There is no mitral valve stenosis. Pulmonic Valve The pulmonic valve was not well visualized. Tricuspid Valve Likely normal tricuspid valve structure and function. Tricuspid regurgitation envelope is inadequate for calculation of right ventricular systolic pressure. Normal right atrial pressure. Great Vessels The pulmonary artery was not well visualized. There is no dilatation of the ascending aorta measuring 3.30 cm. Moderate plaque is seen in the sino tubular ridge. Venous The inferior vena cava is normal in size. Pericardium/Pleural The pericardium was not well visualized. Prior Study Comparison No prior study in the last 5 years for comparison Recommendations, Care & Conclusions Consider a ZOE if clinically appropriate. Measurements 2D Linear Measurements IVSd: 0.98 0.6-0.9/0.6-1.0 cm LVIDd: 5.74 3.9-5.3/4.2-5.9 cm LVIDd Index: 2.31 2.4-3.2/2.2-3.1 cm/m2 LVIDs: 3.60 2.0-3.6 cm LVPWd: 0.93 0.7-1.1 cm Ao Root: 3.20 2.1-3.5 cm LA Diam: 3.70 2.7-3.8/3.0-4.0 cm LAIDs Index: 1.49 1.5-2.3 cm/m2 LV Mass: 268.56 67-162/88-224 g LV Mass Index: 108.29 43-95/49-115 g/m2 LVOT Diam: 2.30 3.0+(-)1.3 cm 2D Systolic Function EF 4C: 58.90 >55% EF 2C: 65.80 >55% EF BiP: 60.70 >55% Mitral Valve MV Pk E: 0.45 MV PK A: 0.56 MV Decel Time: 300.00 E/A: 0.80 E'Lateral: 13.30 E'Medial: 9.79 E/E' Med: 4.60 E/E' Lat: 3.40 PHT: 88.00 MVA PHT: 2.50 Decel [place]: 1.49 LVOT LVOT Diam: 2.30 LVOT Area: 4.15 Diastolic Function MV Pk E: 0.45 MV Pk A: 0.56 E/A: 0.80 E'Medial: 9.79 E/E' Med: 4.60 E' Laterial: 13.30 E/E' Lat: 3.40 Right Ventricle TAPSE (mm): 18.00 TVS' Lee: 9.00 Tricuspid Valve TR Pk Lee: 1.12 TR Pk Grad: 5.00 RA Press: 3.00 RVSP: 8.00 Great Vessels Aorta Ao Root-2D: 3.20 2.0-3.7 cm Ao Asc: 3.30 2.1-3.4 cm Pulmonary Veins Pulm Vein S/D 1.10 Pulmonary Valve PV Pk Lee: 1.02 Peak PV Grad: 4.00 Updated in Other Vendor System with Status of Final Shaji Marcos MD electronically signed on 04/08/2025 2:02:25 PM with status of Final
[2025-04-07 07:54] LABS: Glucose, Whole Blood 115 mg/dL (60-115)
[2025-04-07] MEDS: 0.9 % Sodium Chloride Flush 3 ML SYRINGE IVFLUSH ×3 (07:57→20:28)
[2025-04-07] MEDS: oxyCODONE HCl Immed Release 5 MG TABLET PO ×2 (07:57→21:39)
[2025-04-07 10:34] VITALS: BP 135/83; PULSE 66; RESP 15; TEMP 36.6; O2SAT 98
--- NOTE | 2025-04-07 10:40 | PC.NURSE ---
pt returned from MRI at this time. pt remains a&ox4. neuros intact. GCS of 15. vss and up to date. nsr on the quality assurance monitor body. pt has no complaints. reports pain in LUE and neck have decreased s/p medication administration. pt still reports slight numbness/tingling to left side of face. pending MRI results/bed assignment. plan of care ongoing. call garza placed within reach.
--- NOTE | 2025-04-07 12:03 | MHC.CM.PN ---
IMM 04/07/25, pt. lives alone, PCP confirmed: Mo Magana MD. Pt. does not use home health services, for DME, he has a walker and a cane. HCP is his son: Joe. He is able to arrange transport home at [place]. DCP: home, self care, CM to follow for [place] needs.
[2025-04-07 13:05] LABS: Glucose, Whole Blood 116 mg/dL (60-115)
--- NOTE | 2025-04-07 13:11 | P.CNNE_ITS ---
History of Present Illness Data of Consult Service Date: 04/07/25 Primary Care Provider: Mo Magana DO, MD JR Marley is a 59-year-old male patient with a past medical history of hyperlipidemia, obesity, left shoulder and upper extremity pain, cervical disc disease, and Crohn's disease who presented to the emergency department for left- sided facial numbness. His numbness started on Sunday04/05/2025 and is still present. He does not have any associated pain to his face or associated headache. He has not had any other focal neurological deficits such as vision changes, speech changes, or changes to cognition. He does have left upper extremity numbness, tingling, and pain for which he has been followed by Orthopedics. He had a cervical spine MRI noting some disc disease and related nerve impingement. His left upper extremity symptoms have however been going on for quite some time. His CT of the head and neck as well as his MRI of the brain did not demonstrate any findings that are likely related to his symptoms. Workup: C-spine MRI: 1. No compression fractures or listhesis normal cervical lordosis. 2. Normal caliber and signal cervical cord 3. Subarticular disc herniation C6-7 on the left encroaching on the neural foramina with impingement of C7 exiting nerve root on the left 4. Spur disc complexes C5-6 bilaterally there is impingement of C6 exiting nerve root on the right 5. Small focal central disc herniation C3-4 level with mild ventral compression thecal sac but no cord impingement. Brain MRI: 1. No evidence of intracranial hemorrhage, acute infarction, mass effect, or edema. 2. Mild changes of small vessel ischemia. Head and neck CTA: 1. Moderate calcified atherosclerotic disease of the cavernous internal carotid arteries. 2. Mild calcified atherosclerotic disease of the proximal internal carotid arteries. 3. No intracranial aneurysm, dissection, hemodynamically significant stenosis, or occlusion. 4. No acute intracranial findings. B12 level:210 Review of Systems 2 Review of Systems: Yes all other systems are reviewed and are negative [facility] Past Medical History Medical History Crohn disease HLD (hyperlipidemia) Class 3 obesity Neuropathy Hypertension Diabetes Surgical History Surgical History History of intestinal surgery Social History Social History (Updated 03/17/25 @ 15:31 by Randee Wallace Ellen) Household Members: None Housing: Apartment Do you presently have visiting nurse or other home services: No Alcohol intake: former Patient Tobacco Use Status: Never used Tobacco Substance Use Type: Marijuana service: No Current occupational status: disabled Current occupation: right hand dominant Meds Allergies Allergy/AdvReac Type Severity Reaction Status Date / Time No Known Allergies Allergy Verified 04/06/25 15:04 Active Medications: Current Medications Acetaminophen (Acetaminophen 325 Mg Tablet) 975 mg PO Q6H PRN PRN Reason: Pain, Mild 1-3,fever,headache Atorvastatin Calcium (Atorvastatin Calcium 40 Mg Tablet) 40 mg PO BEDTIME [facility] Last Admin: 04/06/25 22:51 Dose: 40 mg Calcium Carbonate (Calcium Carbonate 750 Mg Tab.Chew) 750 mg PO Q4H PRN PRN Reason: Heartburn Dextrose (Dextrose 50 % 25 Gm/50 Ml Syringe) 25 gm IVPUSH Q15M PRN; Protocol PRN Reason: per Hypoglycemia Standing Ord. Enoxaparin Sodium (Enoxaparin Sodium 40 Mg/0.4 Ml Syringe) 40 mg SUBCUT Q24H [facility] Last Admin: 04/06/25 22:51 Dose: 40 mg Gabapentin (Gabapentin 300 Mg Capsule) 300 mg PO BID [facility] Last Admin: 04/07/25 09:23 Dose: 300 mg Glucose (Glucose Gel 15 Gm Gel..Gram.) 15 gm PO Q15M PRN; Protocol PRN Reason: per Hypoglycemia Standing Ord. Insulin Human Lispro (Insulin Lispro 100 Unit/Ml 3 Ml Vial) 0 unit SUBCUT QIDACHS [facility]; Protocol Last Admin: 04/07/25 13:09 Dose: Not Given Lorazepam (Lorazepam 0.5 Mg Tablet) 0.5 mg PO BID [facility] Last Admin: 04/07/25 09:23 Dose: 0.5 mg Magnesium Hydroxide (Milk Of Magnesia 30 Ml Oral.Susp) 30 ml PO DAILY PRN PRN Reason: Constipation Melatonin (Melatonin 3 Mg Tablet) 6 mg PO BEDTIME PRN PRN Reason: Insomnia Non-Formulary Medication (Upadacitinib [Rinvoq]) 45 mg PO DAILY [facility] Ondansetron HCl (Ondansetron Hcl 4 Mg/2 Ml Vial) 4 mg IVPUSH Q8H PRN PRN Reason: Nausea and Vomiting Oxycodone HCl (Oxycodone Hcl Immed Release 5 Mg Tablet) 5 mg PO Q6H PRN PRN Reason: Pain, Severe (Pain Scale 7-10) Last Admin: 04/07/25 07:57 Dose: 5 mg Sodium Chloride (0.9 % Sodium Chloride Flush 3 Ml Syringe) 3 ml IVFLUSH QSHIFT [facility] Last Admin: 04/07/25 07:57 Dose: 3 ml Tamsulosin HCl (Tamsulosin Hcl 0.4 Mg Capsule) 0.4 mg PO DAILY [facility] Last Admin: 04/07/25 09:23 Dose: 0.4 mg Tramadol HCl (Tramadol Hcl 50 Mg Tablet) 50 mg PO Q6H PRN PRN Reason: Pain, Moderate(Pain Scale 4-6) Home Medications ?Medication ?Instructions ?Recorded ?Confirmed ?Last Taken ?Type amlodipine 5 mg tablet 5 mg PO DAILY 03/17/2504/06 Unknown History gabapentin 300 mg capsule 300 mg PO BID 03/17/2504/06 Unknown History glipizide 5 mg tablet, extended 5 mg PO TID 03/17/25 1 Unknown History release 24 hr ibuprofen 800 mg tablet 800 mg PO BID PRN Pain 03/1704/06/25 Unknown History lorazepam 0.5 mg tablet 0.5 mg PO BID 03/17/2504/06 Unknown History losartan 100 mg tablet 100 mg PO DAILY 03/17/2512/24 Unknown History metformin 1,000 mg tablet 1,000 mg PO BID 03/17/2512/24 Unknown History tamsulosin 0.4 mg capsule 0.4 mg PO DAILY 03/17/2512/24 Unknown History rosuvastatin 10 mg tablet 10 mg PO BEDTIME 04/06/25 Unknown History upadacitinib 45 mg tablet,extended 45 mg PO DAILY 12/2404/06/25 Unknown History release 24 hr (Rinvoq) Physical Exam 2 Vital Signs: Vital Signs: Last Vital Signs Temp 97.9 F 04/07/25 10:34 Pulse 66 04/07/25 10:34 Resp 15 04/07/25 10:34 BP 135/83 04/07/25 10:34 Pulse Ox 98 04/07/25 10:34 O2 Del Method Room Air 04/07/25 10:34 BMI result Body Mass Index 38.7 Const: Orientation/consciousness: oriented to person, oriented to place and oriented to time HEENT: Head: Yes normal to inspection Ears: hearing grossly normal bilaterally Mouth: tongue normal and No abnormal TMJ Throat: Yes uvula midline Eyes: Periorbital: periorbital findings normal Eyelids: Yes eyelids normal Conjunctivae: conjunctivae normal Pupils: Equal, round and reactive pupils present EOM: EOMs intact bilaterally Skin: Rashes: other (reddened cheeks with some small raised areas bilaterally) Neuro: Other: A small circumferential area to the left cheek medial within the V2 dermatome with some loss of pinprick and light touch sensation. The area is circumferential about the size of a quarter. There is otherwise no motor deficits in the face, no visual disturbances, no abnormal EOM, or speech deficit. General: oriented to person, oriented to place, oriented to time, CN's II- XI intact bilaterally (normal aside from sensory loss to the v2 dermatome medially. ) and Unable to assess gait Cranial nerves: Yes Equal, round and reactive pupils present Cognition (Neuro): normal cognition Gait exam (Neuro): Unable to assess gait Results Labs 04/07/25 04:18 04/07/25 04:18 Labs: Short CBC 04/06/25 04/07/25 Range/Units 15:47 04:18 WBC 5.7 3.9 L (4.8-10.8) X10*3/uL Hgb 12.7 L 11.6 L (14.0-18.0) g/dl Hct 36.4 L 34.8 L (42.0-52.0) % Plt Count 175 169 (160-400) X10*3/uL BMP 04/06/25 04/07/25 15:47 04:18 Sodium 137 140 Potassium 4.3 4.2 Chloride 105 106 Carbon Dioxide 24 26 BUN 19 H 19 H Creatinine 1.15 1.09 Calcium 9.4 8.8 D Liver Function 04/06/25 Range/Units 15:47 Total Bilirubin 0.7 (0.0-1.0) mg/dL AST 35 (5-37) U/L ALT 20 (0-40) U/L Alkaline Phosphatase 51 (39-117) U/L Albumin 4.8 (3.5-5.0) g/dL Urine 04/06/25 Range/Units 17:07 Urine Color Yellow Urine Appearance Clear Urine pH 5.5 (5.0-9.0) Ur Specific [place] 1.015 (1.005-1.025) Urine Protein Trace (Neg-Trace) mg/dL Urine Glucose (UA) Negative (Negative) mg/dL Assessment and Plan (1) Facial paresthesia: Status: Acute (2) Left facial numbness: Status: Acute Plan Donell is a 59-year-old male patient with a past medical history of hyperlipidemia, obesity, left shoulder and upper extremity pain, cervical disc disease, and Crohn's disease who presented to the emergency department for left- sided facial numbness. His numbness has been present for the last 2 days in the medial aspect of the left V2 dermatome. There is circumferential about the size of a quarter. There was decreased light sensation and pinprick sensation in his area. He denies headaches or other focal neurological deficits aside from his left upper extremity numbness and tingling which is likely related to his cervical disc disease. He is working with orthopedics for this. His imaging workup was reassuring in regards to the left facial numbness which included a brain MRI, CT of the head and CTA of the head and neck. I suspect that this new area of numbness may be secondary to a dermatological abnormality given the area of rash along his cheeks. His B12 however was notably low at 210. We may consider checking a methylmalonic acid or homocystine to evaluate for true B12 deficiency which can cause paresthesias. Procedures Date of Service Date of Service: 04/07/25
[2025-04-07 13:19] VITALS: BP 116/86; PULSE 77; RESP 20; TEMP 36.7; O2SAT 97
[2025-04-07 17:20] VITALS: BP 167/85; PULSE 73; RESP 18; TEMP 37; O2SAT 97
[2025-04-07 17:21] LABS: Glucose, Whole Blood 102 mg/dL (60-115)
[2025-04-07 19:49] VITALS: BP 137/74; PULSE 79; RESP 18; TEMP 36.8; O2SAT 97
[2025-04-07 20:47] LABS: Glucose, Whole Blood 173 mg/dL (60-115)
[2025-04-07 23:54] VITALS: BP 124/72; PULSE 73; RESP 18; TEMP 36.8; O2SAT 95
[2025-04-08 03:37] VITALS: BP 109/58; PULSE 74; RESP 18; TEMP 36.9; O2SAT 95
[2025-04-08 07:18] VITALS: BP 133/86; PULSE 84; RESP 18; TEMP 36.6; O2SAT 94
[2025-04-08] MEDS: oxyCODONE HCl Immed Release 5 MG TABLET PO ×3 (07:19→20:36)
[2025-04-08 07:29] LABS: Glucose, Whole Blood 137 mg/dL (60-115)
[2025-04-08] MEDS: 0.9 % Sodium Chloride Flush 3 ML SYRINGE IVFLUSH (08:07)
[2025-04-08 10:57] VITALS: BP 153/82; PULSE 81; RESP 18; TEMP 36.5; O2SAT 96
[2025-04-08 11:14] LABS: Glucose, Whole Blood 161 mg/dL (60-115)
[2025-04-08 15:27] VITALS: BP 153/89; PULSE 67; RESP 18; TEMP 36.9; O2SAT 96
[2025-04-08 15:39] LABS: Glucose, Whole Blood 158 mg/dL (60-115)
[2025-04-08 19:13] VITALS: BP 139/88; PULSE 77; RESP 16; TEMP 36.9; O2SAT 97
[2025-04-08 20:20] LABS: Glucose, Whole Blood 123 mg/dL (60-115)
[2025-04-08 23:17] VITALS: BP 145/76; PULSE 68; RESP 16; TEMP 36.9; O2SAT 95
[2025-04-09] MEDS: 0.9 % Sodium Chloride Flush 3 ML SYRINGE IVFLUSH ×2 (01:03→08:25)
[2025-04-09 04:00] VITALS: BP 151/90; PULSE 71; RESP 16; TEMP 36.4; O2SAT 98
[2025-04-09] MEDS: oxyCODONE HCl Immed Release 5 MG TABLET PO ×2 (05:04→13:32)
[2025-04-09 07:35] LABS: Glucose, Whole Blood 201 mg/dL (60-115)
[2025-04-09 07:38] VITALS: BP 140/90; PULSE 60; RESP 18; TEMP 36.3; O2SAT 96
[2025-04-09 10:59] VITALS: BP 142/98; PULSE 83; RESP 18; TEMP 36.7; O2SAT 95
[2025-04-09 11:00] LABS: Glucose, Whole Blood 199 mg/dL (60-115)
--- NOTE | 2025-04-09 12:44 | P.DS_ITS ---
DS: Providers Provider Date of Service: 04/09/25 Date of admission: 04/06/25 21:06 Date of discharge: 04/09/25 Primary care physician: Mo Magana DO, MD Consults: 04/06/25 22:20 Consult to Neurology Routine Consulting Provider: Marge Steiner Reason for consultation: facial numbess ? TIA vs CVA Has provider been notified: No DS: Diagnosis Discharge Diagnosis (1) Facial paresthesia: Status: Acute (2) Left facial numbness: Status: Acute DS: Summary Hospital Course Hospital Course: Admission hpi Chief Complaint: facial numbness Patient is a 59-year-old male with a past medical history significant for class 3 obesity, type 2 diabetes, hypertension, hyperlipidemia and Crohn's disease, who presented to the ED due to intermittent left-sided facial numbness starting last night. The patient reports that he has been seeing an orthopedic for left- sided arm numbness and tingling as well as pain which has been persistent for the past 3 weeks. The facial numbness is new. He reports previously he worked with a [employer] for many years. He denies any headache, fever, chills, nausea, vomiting, urinary symptoms, recent tick bites or rash. He is unsure if he has had varicella in the past. No swallowing difficulties, visual changes or facial droop. No upper or lower extremity weakness. hospital course: The patient presented with facial numness and rash which has been ongoing since been on Rinvop a biologic agent for crohn's disease. Initial concern was for stroke or TIA, however work up with CT of head and MRI has been negative.He was seen by Neurology likely cause of his symptoms is attributed to the dermatological issues of his face, literature review suggest that Rinvoq can cause such a rash, along with other things.. He has since stopped taking the medication and will discussed with the prescriber before taking it again. He is symptomatic treated with Prednisone and Benadryl. Of note he has cervial pain due to bulging disk and is scheduled for outpatient NeurSurgery evaluation next week, he's been lot of pain and is thus been supply with oxydoen for pain until next week Time Attestation Discharge Coordination Time (in mins): 35 Quality: Safe Use of Opioids Does Pt have an Active Cancer Diagnosis on the Problem List?: No Quality: Stroke Does the patient have a stroke diagnosis?: No Physical Exam Vital Signs: Vital Signs: Last Vital Signs Temp 98.0 F 04/09/25 10:59 Pulse 83 04/09/25 10:59 Resp 18 04/09/25 10:59 BP 142/98 H 04/09/25 10:59 Pulse Ox 95 04/09/25 10:59 O2 Del Method Room Air 04/09/25 10:59 BMI result Body Mass Index 38.7 DS: Data Data Completed and Pending Labs on day of discharge: Laboratory Results - last 24 hr 04/08/25 04/08/25 04/09/25 15:33 20:16 07:31 POC Glucose 158 H 123 H 201 H 04/09/25 10:56 POC Glucose 199 H Discharge Plan Discharge Anticipated Discharge Date/Time: 04/09/25 12:34 Patient Disposition: Home, Self-Care Discharge Diagnosis: Facial numness, facial rash, cervical radiculopathy Referrals: Mo Magana DO, MD [Primary Care Provider, Internal Medicine] - 1 Week Discharge Medications: New diphenhydramine HCl [Banophen] 25 mg Capsule 25 mg PO Q6H PRN (Reason: Itching) Qty: 20 0RF oxycodone 5 mg Tablet 5 mg PO Q6H PRN (Reason: Pain, Severe (Pain Scale 7-10)) Qty: 20 0RF Rx Instructions: Partial Fill upon patient request. prednisone 20 mg tablet 40 mg PO DAILY 4 Days Qty: 8 0RF Continued Rinvoq 45 mg tablet extended release 24 hr 45 mg PO DAILY rosuvastatin 10 mg tablet 10 mg PO BEDTIME gabapentin 300 mg capsule 300 mg PO BID ibuprofen 800 mg tablet 800 mg PO BID PRN (Reason: Pain) glipizide 5 mg tablet extended release 24hr 5 mg PO TID amlodipine 5 mg tablet 5 mg PO DAILY lorazepam 0.5 mg tablet 0.5 mg PO BID tamsulosin 0.4 mg capsule 0.4 mg PO DAILY metformin 1,000 mg tablet 1,000 mg PO BID losartan 100 mg tablet 100 mg PO DAILY Discharge Orders: Discharge Order (Routine); Ordered 04/09/25 Ordered By: Geronimo Merino Diet: Diabetic diet Activity on Discharge: As tolerated Stand Alone Forms: Patient Portal Discharge page Print Language: [place] Care Plan Goals: recovery from facial numness, and rash, chronic nec pain Health Concerns: same as above Plan of Treatment: take Prednisone for rash in face, along with benadryl as needed for itch follow up with Neurosurgery as scheduled oxycodone as directed for pain Hold Rinvoq and discuss with your prescriber before taking it again as maybe causing rash and numness of the face Assessment: see above
--- NOTE | 2025-04-09 12:50 | MHC.CM.PN ---
Patient has been medically cleared for dc to home today, self care.The last IMM was addressed on 03/08/2025.
== END 2025-04-09 15:13 | disposition home or self-care (01) | DRG 92 ==
LOC: HO.ED 21:45 → HO.EDOVER 21:49 → HO.IMC 04-07 16:28
PROVIDERS: Physician Assistant; Admitting Provider Physician Assistant; Emergency Provider Emergency Medicine; PCP Internal Medicine; Visit Provider Internal Medicine
DX: R20.2 Paresthesia of skin (principal); K50.90 Crohn's disease, unspecified, without complications; L27.1 Localized skin eruption due to drugs and medicaments taken internally; D64.9 Anemia, unspecified; T45.1X5A Adverse effect of antineoplastic and immunosuppressive drugs, initial encounter; E11.9 Type 2 diabetes mellitus without complications; I10 Essential (primary) hypertension; E78.5 Hyperlipidemia, unspecified; M50.123 Cervical disc disorder at C6-C7 level with radiculopathy; E66.813 Obesity, class 3; Z71.3 Dietary counseling and surveillance; Z68.38 Body mass index [BMI] 38.0-38.9, adult; Z79.84 Long term (current) use of oral hypoglycemic drugs; Z79.899 Other long term (current) drug therapy
CPT/HCPCS: 36415; 70450; 70496; 70498; 70551; 80048; 80053; 80061; 81003; 82607; 82746; 82947; 83540; 84484; 85025; 93005; 93306; 97161; 97165; 99222; 99285; J1650; Q9957; Q9967

== ENCOUNTER → 2025-04-06 15:07 | Outpatient (BNV) | payer MEDICARE, MEDICAID, SELFPAY | PROVIDERS: Admitting Provider Physician Assistant; Emergency Provider Emergency Medicine; PCP Internal Medicine; Visit Provider Internal Medicine Cardiovascular Disease | DX: R20.0 Anesthesia of skin (principal) | CPT/HCPCS: 93010 ==

== ENCOUNTER → 2025-04-06 15:09 | Outpatient (BNV) | payer MEDICARE, MEDICAID, SELFPAY | PROVIDERS: PCP Internal Medicine; Visit Provider Radiology Diagnostic Radiology | DX: I65.23 Occlusion and stenosis of bilateral carotid arteries (principal); R20.0 Anesthesia of skin | CPT/HCPCS: 70450 ==

== ENCOUNTER 2025-04-06 21:06 | Outpatient (BNV) | payer MEDICARE, MEDICAID, SELFPAY | END 2025-04-07 07:00 | PROVIDERS: Admitting Provider Physician Assistant; Emergency Provider Emergency Medicine; PCP Internal Medicine; Visit Provider Internal Medicine Cardiovascular Disease | DX: I35.8 Other nonrheumatic aortic valve disorders (principal); I70.0 Atherosclerosis of aorta | CPT/HCPCS: 93306 ==

== ENCOUNTER 2025-04-06 21:06 | Outpatient (BNV) | payer MEDICARE, MEDICAID, SELFPAY | END 2025-04-07 09:34 | PROVIDERS: Admitting Provider Physician Assistant; Emergency Provider Emergency Medicine; PCP Internal Medicine; Visit Provider Radiology Diagnostic Radiology | DX: R20.0 Anesthesia of skin (principal) | CPT/HCPCS: 70551 ==

== ENCOUNTER → 2025-04-06 21:06 | Outpatient (BNV) | payer MEDICARE, MEDICAID, SELFPAY | PROVIDERS: Admitting Provider Physician Assistant; Emergency Provider Emergency Medicine; PCP Internal Medicine; Visit Provider Physician Assistant | DX: R20.0 Anesthesia of skin (principal); D64.9 Anemia, unspecified | CPT/HCPCS: 99223 ==

== ENCOUNTER 2025-04-07 12:06 | Outpatient (REF) | payer MEDICARE, MEDICAID, SELFPAY | END 2025-04-07 12:07 | disposition home or self-care (01) | LOC: HO.HOSX 12:06 | PROVIDERS: Visit Provider Orthopaedic Surgery | DX: Z13.89 Encounter for screening for other disorder (principal) ==

== ENCOUNTER 2025-04-14 13:27 | Outpatient (AMB) | payer MEDICARE, MEDICAID, SELFPAY ==
--- NOTE | 2025-04-14 13:38 | MHC.OFFVIS ---
Vital Signs 04/14/25 13:42 Height 6 ft Weight 275 lb BMI 37.3 Intake Visit Reasons: OV- Cervical Spine MRI review,04/04, Left shoulder pain and weakness Intake Note: Donell is a 59 year old male who presents with complaints of progressively worsening left shoulder pain and weakness as well as neck pain which radiates down his left arm to his left hand. The patient states that at times his ?entire left arm will go numb?. He has failed the last 6 weeks of conservative treatment which has included physical therapy exercises, prednisone, Tylenol, gabapentin, anti-inflammatory medicines and oxycodone. The patient recently went to the emergency room because his neck pain was so severe. He also reports intermittent numbness along the left side of his face. He reports weakness when lifting his left hand above shoulder height. Allergies No Known Allergies Allergy (Verified 04/14/25 13:42) [facility] Medical History Crohn disease HLD (hyperlipidemia) Class 3 obesity Neuropathy Hypertension Diabetes Surgical History History of intestinal surgery Social History (Updated 03/17/25 @ 15:31 by MAILE Blackman) Household Members: None Housing: Apartment Do you presently have visiting nurse or other home services: No Alcohol intake: former Patient Tobacco Use Status: Never used Tobacco Substance Use Type: Marijuana service: No Current occupational status: disabled Current occupation: right hand dominant Physical Exam Vital Signs: BMI result Body Mass Index 37.3 Extrem Other: Left shoulder examination shows decreased range of motion when compared to his right shoulder, 4/5 strength with supraspinatus testing, positive impingement signs, no instability Results Reviewed Results Reviewed: CTA of the patient's neck shows moderate calcification of the carotid arteries MRI of the patient's cervical spine shows moderate foraminal stenosis Assessment & Plan Assessment & Plan (1) Cervical stenosis of spinal canal: Code(s): M48.02 - Spinal stenosis, cervical region Category: Medical (2) Rotator cuff insufficiency of left shoulder: Code(s): M25.312 - Other instability, left shoulder Category: Medical Plan Mr. Aguilar presents with progressively worsening left shoulder pain and weakness due to impingement syndrome and possible rotator cuff tearing. Thus, I will send the patient for an MRI of his left shoulder for further evaluation. I will also refer him to our vascular surgery and neurosurgery department for further evaluation of his carotid calcifications and cervical stenosis. I will see him back once his shoulder MRI is completed. He will call me prior to that time should his symptoms worsen in any way. Please feel free to call me at any time should questions regarding his orthopedic management arise. I spent 20 minutes in reviewing the patient's records and imaging studies, seeing the patient and documenting in the medical record. Orders: Orders MR shoulder LT wo con 04/15/25 M25.312 - Other instability, left shoulder Referrals Vascular Surgery Referral I65.29 - Occlusion and stenosis of unspecified carotid artery Neuro Spine Referral M48.02 - Spinal stenosis, cervical region Coding Level of Care Code Est Pt Level 3 (46001) Complex EM visit Add On G2211 Diagnoses Cervical stenosis of spinal canal M48.02 Rotator cuff insufficiency of left shoulder M25.312
[2025-04-14 13:42] VITALS: BMI 37.3
--- OUTSIDE RECORDS SUMMARY | 2025-04-14 16:20 | XMS_ITS | Encounter Summary ---
Demographics Address [address] [place] [address] Mobile Phone Home Phone Email Address Preferred Language en Marital Status Gnosticism Affiliation Unknown Race White Ethnic Group Not or Lati no Author Organization [facility] Address [address] [place] [address] Care Team Providers [facility] Name Role Phone ElieMo denton Primary Care Provider [phone] Encounter Details Date Type Department Care Team ([facility] Contact Info) Description 01/22/2025 Lab Requisition [facility] - Main Lab [address] [facility] [place] [address] Janice Tello NP [address] [place] [address] [address] [place] [address] Urinary tract infection, site not specified; Hematuria, [...] as of this encounter Plan of Treatment Not on file documented as of this encounter Procedures Procedure [...] reflex microscopic (01/22/2025 9:00 AM EDT) Specific [place] Urine 1.030 1.003 - 1.030 LAB URINALYSIS - AUTOMATED METHOD 01/22/2025 1:06 PM [facility] pH, Urine 5.5 5.0 - 8.0 pH LAB URINALYSIS - AUTOMATED METHOD 01/22/2025 1:06 PM [facility] Leukocytes, Urine Negative Negative LAB URINALYSIS - AUTOMATED METHOD 01/22/2025 1:06 PM [facility] Nitrite, Urine Negative Negative LAB URINALYSIS - AUTOMATED METHOD 01/22/2025 1:06 PM [facility] Protein, Urine 30(A) <=Trace mg/dL LAB URINALYSIS - AUTOMATED METHOD 01/22/2025 1:06 PM [facility] Glucose, Urine Negative Negative mg/dL LAB URINALYSIS - AUTOMATED METHOD 01/22/2025 1:06 PM [facility] Ketones, Urine Trace(A) Negative mg/dL LAB URINALYSIS - AUTOMATED METHOD 01/22/2025 1:06 PM [facility] Urobilinogen, Urine 1.0 0.2 - 1.0 mg/dL LAB URINALYSIS - AUTOMATED METHOD 01/22/2025 1:06 PM [facility] Bilirubin, Urine Negative Negative LAB URINALYSIS - AUTOMATED METHOD 01/22/2025 1:06 PM [facility] Blood, Urine Negative Negative LAB URINALYSIS - AUTOMATED METHOD 01/22/2025 1:06 PM EDT [facility] RBC, Urine 1.3 0 - 4 /HPF LAB URINALYSIS - AUTOMATED METHOD 01/22/2025 1:06 PM EDT [facility] WBC, Urine 1.0 0 - 4 /HPF LAB URINALYSIS - AUTOMATED METHOD [facility] Squamous Epithelial, Urine 12 0 - 60 /LPF LAB URINALYSIS - AUTOMATED METHOD [facility]25 [facility] Bacteria, Urine Negative Negative /HPF LAB URINALYSIS - AUTOMATED METHOD 01/22/2025 1:06 PM [facility] Hyaline Casts, Urine 0.8 0 - 3 /LPF LAB URINALYSIS - AUTOMATED METHOD 01/22/2025 1:06 PM [facility] Urine Urine specimen obtained by clean catch procedure / Unknown 01/22/2025 9:00 AM EDT 01/22/2025 11:06 AM EDT us Camacho Tello [employer] LAB URINE ORDERABLES Final Resul t Performing Organization Address City/[facility]/ZIP Co de Phone Number [facility] [address] [place] [address], [place] [phone] * Culture urine (01/22/2025 9:00 AM EDT) Culture, Urine <10,000 CFU/mL gram positive cocci, insignificant count, no further workup 01/23/2025 7:44 AM EDT [facility] Urine Urine specimen obtained by clean catch procedure / Unknown 01/22/2025 9:00 AM EDT 01/22/2025 11:06 AM EDT us Camacho Tello [employer] LAB MICROBIOLOGY - GENERAL ORDER [place] Final Result Performing Organization Address City/[facility]/ZIP Co de Phone Number [facility] [address] [place] [address], [place] [phone] documented in this encounter Visit Diagnoses Diagnosis Urinary tract infection, site not specified Hematuria, unspecified documented in this encounter Care Teams [facility] Relationship Specialty Start Date End Date Mo Magana DO [address] [place] [id number] PCP - General 08/14/22 documented as of this encounter
--- OUTSIDE RECORDS SUMMARY | 2025-04-14 16:20 | XMS_ITS | Clinical Summary ---
Author Organization [facility] Address [address] [place] [address] Phone Care Team Providers Care Park Police Name Role Phone Eliebertin Mo Primary Care Provider [phone] Allergies Active Allergy Reactions Criticality Noted Date [...] (six) hours if needed for anxiety. Active buprenorphine-na loxone (Suboxone) 8-[address] [...] 45mg completed. 30 tablet 3 5 Active betamethasone dipropionate (DIPROSONE) 0.05 % cream Active clonazePAM (KlonoPIN) 0.5 mg tablet Take 1 tablet (0.5 mg total) by mouth. 3 Active erythromycin 5 mg/gram (0.5 %) ophthalmic ointment Active gabapentin (NEURONTIN) 300 mg capsule 5 Active hydroCHLOROthiaz ginger (HYDRODIURIL) 25 mg tablet Active hydroCHLOROthiaz ginger (HYDRODIURIL) 50 mg tablet Active ibuprofen (ADVIL,MOTRIN) 800 mg tablet 5 Active liraglutide (Victoza 2-Tony) 0.6 mg/0.1 mL (18 mg/3 mL) injection 3 Active semaglutide (Ozempic) 0.25 mg or 0.5 mg (2 mg/3 mL) injection pen Active tamsulosin (FLOMAX) 0.4 mg 24 hr capsule 5 Active simethicone (MYLICON,GAS-X) 180 mg capsule Take 1 capsule (180 mg total) by mouth 4 (four) times a day. 4 Active sildenafiL (VIAGRA) 100 mg tablet Take 1 tablet (100 mg total) by mouth. 02/07/202 0 Active omeprazole (PriLOSEC) [address] capsule Take 1 capsule (20 mg total) by mouth. 4 025 Active Problems Problem Noted Date Diagnosed Date AA (alcohol abuse) 04/08/2025 Abnormal liver function tests 04/08/2025 Anxiety 04/08/2025 Crohn's disease of colon ([facility] V24, [facility] V 28) 04/08/2025 Overview (04/08/2025): Colonoscopy 2011 Crohn's disease, repeat 2016. Diabetes mellitus type II, c ontrolled ([facility] V24, [facility] V28) 04/08/2025 Hypercholesterolemia 04/08/2025 Hypertension 04/08/2025 Marijuana use 04/08/2025 Opiate dependence ([facility] V24, [facility] V28) 01/2025 Severe obesity ([facility] V24, [facility] V28) 2024 Tick bite of left calf 04/08/2025 Crohn's disease of small int estine with fistula ([facility] V24, [facility] V28) 07/15/2024 Encounters Date Type Department Care Team Description 04/13/2025 Telephone Gastroenterology [facility] [address] [address] Xenia Son PA 02/20/2025 Telephone Gastroenterology [facility] 175 [facility] [address] [address] Xenia Son PA 02/17/2025 Telephone Gastroenterology [facility] 175 [facility] [address] [phone] Xenia Son PA 02/12/2025 Telephone Gastroenterology [facility] 175 [facility] [address] [phone] Xenia Son PA 02/05/2025 7:40 AM EDT - 02/05/2025 11:59 PM EDT Hospital Encounter [facility] CT Scan [address] [place] [address] Crohn's disease of small intestine with fistula ([facility] V24, [facility] V28) Discharge Disposition: Home or Self Care 01/28/2025 Telephone Gastroenterology - [place] 175 [facility] 175 [facility] [address] [place] [address] Xenia Son PA 01/22/2025 Lab Requisition [facility] - Main Lab [address] [facility] [place] [address] Janice Tello NP Urinary tract infection, site not specified; Hematuria, unspecified from Last 3 Months Surgical History Surgery Date Site/Laterality Comments OTHER SURGICAL HISTORY COLONOSCOPY COLON SURGERY Medical History Medical History Date Comments Hyperlipidemia Hypertension Diabetes mellitus ([facility] V24, [facility] V28) Crohn's disease of colon with fistula ([facility] V 24, [facility] V28) Irritable bowel syndrome Anxiety Depression Chronic pain disorder Arthritis Joint pain multtiple Abdominal pain despite thera py for Crohn's disease ([facility] V24, [facility] V28) Social History Tobacco Use Types Packs/Day [...] 01/07/2025 1:56 PM EDT Plan of Treatment Health Maintenance Due Date Last Done Comments Diabetes: Annual Foot Exam 09/21/1973 Diabetes: Annual Retina Eye Exam 09/21/1973 DTaP,Tdap,and Td Vaccines (1 - Tdap) 09/21/1982 RSV Immunization Adult Patients (1 - Risk 50-74 years 1-dose series) 09/21/2013 Zoster Vaccines (1 of 2) 09/21/2013 Hepatitis [...] 10/17/2024 Colorectal Cancer Screening: Colonoscopy 01/11/2033 01/11/2023 HIB Vaccines Aged Out No longer eligi [...] Crohn's disease of small intestine with fistula ([facility] V24, [facility] V28) URINALYSIS WITH REFLEX MICROSCOPIC Routine 01/22/2025 9:00 AM EDT Urinary tract infection, site not specified Hematuria, unspecified URINALYSIS WITH REFLEX MICROSCOPIC Routine 01/22/2025 9:00 AM EDT Urinary tract infection, site not specified Hematuria, unspecified CULTURE URINE Routine 01/22/2025 9:00 AM EDT Urinary tract infection, site not specified Hematuria, unspecified COMPREHENSIVE METABOLIC PANEL Routine 01/07/2025 2:50 PM EDT Crohn's disease of small intestine with fistula ([facility] V24, [facility] V28) HEMOGLOBIN A1C Routine 10/17/2024 2:48 PM EDT HTN (hypertension) HLD (hyperlipidemia) DM (diabetes mellitus) ([facility]/HCC V24, [facility] V28) LIPID PANEL WITH REFLEX TO DIRECT LDL Routine 10/17/2024 2:48 PM EDT HTN (hypertension) HLD (hyperlipidemia) DM (diabetes mellitus) ([facility] V24, [facility] V28) from Last 3 Months or Most [...] Signed Date: 02/05/2025 16:07 ET Workstation ID: [id number] Transcribed By: Self Edit Transcribed Date: 02/05/2025 [...] Signed Date: 02/05/2025 16:07 ET Workstation ID: [id number] Transcribed By: Self Edit Transcribed Date: 02/05/2025 15:57 ET Xenia RUTH IM CT PROCEDURES Final Resul t * (ABNORMAL) Urinalysis with reflex microscopic (01/22/2025 9:00 AM EDT) Specific [place] Urine 1.030 1.003 - 1.030 LAB URINALYSIS - AUTOMATED METHOD 01/22/2025 1:06 PM EDT [facility] pH, Urine 5.5 5.0 - 8.0 pH LAB URINALYSIS - AUTOMATED METHOD 01/22/2025 1:06 PM EDT [facility] Leukocytes, Urine Negative Negative LAB URINALYSIS - AUTOMATED METHOD 01/22/2025 1:06 PM EDT [facility] Nitrite, Urine Negative Negative LAB URINALYSIS - AUTOMATED METHOD [facility]25 [facility] Protein, Urine 30(A) [...] 01/22/2025 1:06 PM [facility] Squamous Epithelial, Urine 12 0 - 60 /LPF LAB URINALYSIS - AUTOMATED METHOD 01/22/2025 1:06 PM [facility] Bacteria, Urine Negative Negative /HPF LAB URINALYSIS - AUTOMATED METHOD 01/22/2025 1:06 PM [facility] Hyaline Casts, Urine 0.8 0 - 3 /LPF LAB URINALYSIS - AUTOMATED METHOD 01/22/2025 1:06 PM [facility] Urine Urine specimen obtained by clean catch procedure / Unknown 01/22/2025 9:00 AM EDT 01/22/2025 11:06 AM EDT us Janice Tello LEAD SOFTWARE QA ENGINEER LAB URINE ORDERABLES Final Resul t [facility] [address] [place] [address], [place] [phone] * Culture urine (01/22/2025 9:00 AM EDT) Culture, Urine <10,000 CFU/mL gram positive cocci, insignificant count, no further workup 01/23/2025 7:44 AM EDT [facility] Urine Urine specimen obtained by clean catch procedure / Unknown 01/22/2025 9:00 AM EDT 01/22/2025 11:06 AM EDT us Janice Tello LEAD SOFTWARE QA ENGINEER LAB MICROBIOLOGY - GENERAL ORDER [place] Final Result Performing Organization Address City/[facility]/ZIP Co de Phone Number [facility] [address] [place] [address], [place] [phone] * (ABNORMAL) Comprehensive metabolic panel (01/07/2025 2:50 PM EDT) Pathologist [facility] Sodium 136 133 - 145 mmol/L LAB CHEMISTRY METHOD 01/07/2025 7:24 PM T [facility] Potassium 4.0 3.5 - 5.5 mmol/L LAB CHEMISTRY METHOD 01/07/2025 7:24 PM T [facility] Chloride 102 96 - 110 mmol/L LAB CHEMISTRY METHOD 01/07/2025 7:24 PM [facility] CO2 23 21 - 32 mmol/L LAB CHEMISTRY METHOD 01/07/2025 7:24 PM T [facility] Anion Gap 11 3 [...] 01/07/2025 7:24 PM [facility] AST (SGOT) 14 10 - 42 unit/L LAB CHEMISTRY METHOD 01/07/2025 7:24 PM [facility] ALT (SGPT) 27 10 - 60 unit/L LAB CHEMISTRY METHOD 01/07/2025 7:24 PM [facility] Alkaline Phosphatase 86 42 - 121 unit/L LAB CHEMISTRY METHOD 01/07/2025 7:24 PM [facility] Total Protein 7.8 6.0 - 8.0 g/dL LAB CHEMISTRY METHOD 01/07/2025 7:24 PM [facility] Albumin 3.9 3.2 - 5.0 g/dL LAB CHEMISTRY METHOD 01/07/2025 7:24 PM [facility] Total Bilirubin 0.4 0.0 - 1.4 mg/dL LAB CHEMISTRY METHOD 01/07/2025 7:24 PM [facility] Blood Venous blood specimen / Unknown Venipuncture / Unknown 01/07/2025 2:50 PM EDT 01/07/2025 2:50 PM EDT Xenia RUTH LAB BLOOD ORDERABLES Final Re sult [facility] [address] [place] [address], * Lipid panel with reflex to direct LDL (10/17/2024 2:48 PM EDT) Cholesterol 98 0 - 200 mg/dL LAB CHEMISTRY METHOD 10/17/2024 8:13 PM EDT [facility] Triglycerides 89 0 - 150 mg/dL LAB CHEMISTRY METHOD 10/17/2024 8:13 PM EDT [facility] HDL 51 >=40 mg/dL LAB CHEMISTRY METHOD 10/17/2024 8:13 PM EDT [facility] LDL Calculated 29 0 - 100 mg/dL LAB CHEMISTRY METHOD 10/17/2024 8:13 PM EDT [facility] VLDL Cholesterol Rajeev 17.8 mg/dL LAB CHEMISTRY METHOD 10/17/2024 8:13 PM EDT [facility] Non HDL Chol. (LDL+VLDL) 47 <145 mg/dL LAB CHEMISTRY METHOD 10/17/2024 8:13 PM EDT [facility] Chol/HDL Ratio 1.9 0.0 - 4.4 LAB CHEMISTRY METHOD 10/17/2024 8:13 PM EDT [facility] Blood Venous blood specimen / Unknown Venipuncture / Unknown 10/17/2024 2:48 PM EDT 10/17/2024 2:48 PM EDT us Camacho Tello LEAD SOFTWARE QA ENGINEER LAB BLOOD ORDERABLES Final Resul t [facility] [address] [place] [address], [place] [phone] * Hemoglobin A1c (10/17/2024 2:48 PM EDT) Hemoglobin A1C 6.0 <6.5 % LAB CHEMISTRY METHOD 10/17/2024 9:34 PM EDT [facility] Mean Bld Glu Estim. 126 mg/dL LAB CHEMISTRY METHOD 10/17/2024 9:34 PM EDT [facility] Blood Venous blood specimen / Unknown Venipuncture / Unknown 10/17/2024 2:48 PM EDT 10/17/2024 2:48 PM EDT us Camacho Tello LEAD SOFTWARE QA ENGINEER LAB BLOOD ORDERABLES Final Resul t [facility] [address] [place] [address], from Last 3 Months or Most Recently Relevant to Health Maintenance Insurance MEDICAID - [place] MEDICARE Care Teams Park Police Relationship Specialty Start Date End Date Mo Magana DO [address] [place] [phone] PCP - General 08/14/22
--- OUTSIDE RECORDS SUMMARY | 2025-04-14 16:20 | XMS_ITS | Encounter Summary ---
Author Organization [facility] Address [address] [place] [address] Care Team Providers Care Hydrology Teacher Name Role Phone Mo Magana Primary Care Provider [phone] Reason for Visit * Reason Onset Date Comments provider call back 04/13/2025 Encounter Details Date Type Department Care Team ([facility] st Contact Info) Description 04/13/2025 Telephone Gastroenterology - [place] [address] [place] [address] Xenia Son PA [address] [place], [place] [id number] Social History Tobacco Use Types Packs/Day Years [...] encounter Progress Notes * FARAZ Sagastume - 04/14/2025 12:45 PM EDT Looks like he had a allergy reaction to Humira, rash, lets try Entyvio and see how it goes... TY * Lizette Talavera MA - 04/14/2025 12:39 PM EDT Labs for biologic already performed, I can start PA using last office note 12/2024. Please advise what medication you want to try for patient. K * FARAZ Sagastume - 04/14/2025 12:22 PM EDT We can put on cancellation list, and we can always try another biologic. Please let him know. * Bettina Zimmerman - 04/13/2025 11:28 AM EDT Patient calling states he needs to cancel his appt today, 04/13 with Lesia due to not being able towalk due to back injury. Patient states he has not been eating & has only had brown water coming out when using the bathroom for months. Patient has stopped taking Rinvoq due to feeling like it is nit helping. Patient has been on too many medications that do not work or he has a reaction to. Pat ient states he feels like he is not being helped & rescheduling into September is crazy. Patient states he will just stop eating all together. documented in this encounter Plan of Treatment Not on file documented as of this encounter Visit Diagnoses Not on filedocumented in this encounter Care Teams Hydrology Teacher Relationship Specialty Start Date End Date Mo Magana DO [address] [place] [phone] PCP - General 08/14/22 documented as of this encounter
== END 2025-04-14 14:02 | disposition home or self-care (01) ==
LOC: HO.HOS 13:28
PROVIDERS: Visit Provider Orthopaedic Surgery
DX: M48.02 Spinal stenosis, cervical region (principal); M25.312 Other instability, left shoulder
CPT/HCPCS: 99213; G2211

== ENCOUNTER → 2025-04-14 13:27 | Outpatient (BNVA) | payer MEDICARE, MEDICAID, SELFPAY | PROVIDERS: Visit Provider Orthopaedic Surgery | DX: M48.02 Spinal stenosis, cervical region (principal); M25.312 Other instability, left shoulder | CPT/HCPCS: 99212 ==

== ENCOUNTER 2025-04-20 13:56 | Outpatient (AMB) | payer MEDICARE, MEDICAID, SELFPAY ==
--- NOTE | 2025-04-20 14:11 | HO.SPINEOV ---
Vital Signs 04/20/25 14:20 Height 6 ft Weight 285 lb BMI 38.6 Intake Visit Reasons: spinal stenosis Intake Note: Mr. Aguilar is here today c/o neck and low back pain. Glass Wool Blanket Machine Feeder Required: No Allergies No Known Allergies Allergy (Verified 04/20/25 14:18) Physical Exam Vital Signs: BMI result Body Mass Index 38.6 Assessment & Plan Assessment & Plan (1) Cervical radiculopathy: Code(s): M54.12 - Radiculopathy, cervical region Category: Medical Plan Dear Dr Michael, Thank you for referring Mr Aguilar to our office today. He is a very nice 59-year-old gentleman with a history of Crohn's disease, history of diabetes, presents for evaluation of neck pain and left upper extremity pain that started about 6 months ago. It began ever so slowly and escalated over time. The pain starts in the back of his neck radiates down along his subscapular area down into his arm, forearm than into his hand. There is also a numb feeling which radiates down the left side of his arm as well into his hand. He could not localize exactly which fingers were affected more than the others. He has been taking prednisone recently and that helped a bit. He was on ibuprofen 1600 mg a day. He tried a chiropractor for a bit but that did not have any lasting effect. He comes in today with an MRI of his cervical spine showing degenerative disc disease and foraminal stenosis. PMH: He is a diabetic, but tells me that he has managed at Dr. Magana office, that his last A1c number was good enough that they reduced his dose of glipizide. He has a history of hypertension, Crohn's disease. He was chronically on prednisone for that, but had a surgery last year where he had 3 ft of his small intestine removed by Dr. Maya. That procedure went well, but he still has flare-ups from time to time. He needs to follow up with his GI doctor. He tried to manage it with some of the biologics but they unfortunately came with too many side effects. He has history of BPH, high cholesterol. Denies any other surgeries. No history of cardiovascular disease, in fact he was recently [facility] because of the numbness in his left arm, they thought he may been having cardiac issues so they worked him up thoroughly and excluded cardiovascular disease. They did find some degree of carotid stenosis so we asked to follow up with a vascular doctor. He has a diagnosis of peripheral neuropathy. No history of bleeding disorders, blood clots, major liver or kidney disease. No history of unusual infections. Social hx: Does not smoke, uses smoke marijuana regularly but now just as it occasionally, does not drink any alcohol Medications: Glipizide, metformin, lorazepam, Flomax, Crestor, losartan, amlodipine, gabapentin, ibuprofen Allergies: Rinvoq and Humira Physical exam: Awake alert oriented no acute distress, strength in upper extremities is full, intact biceps reflexes bilaterally. Absent triceps reflex on the left. Imaging review: Cervical MRI done at [facility] reveals multilevel degenerative disc disease, but of significance on the left at C6-7 there is a disc osteophyte complex causing severe left C6-7 foraminal stenosis. There some foraminal stenosis at C5-6 but it is on the right side. Impression: 59-year-old male presents for evaluation of severe left upper extremity pain radiating down into his hand, he has left C6-7 foraminal stenosis. The symptoms have been going on now for 6 months. He has tried senior caregiver, ibuprofen, tincture of time etc.. I believe the symptoms would be a good indication for a anterior cervical fusion, however we know that his insurance company is going to want him to attempt physical therapy at least. I gave him a referral for that and hopefully improves his symptoms, but if not in the interim I will review his situation with Dr. Pinedo and see if he agrees with me that he would be a good candidate for surgery. I quoted success rate at 90%. I will see him back in 6 weeks after he completes physical therapy. Thank you for allowing us to care for your patient. The total time spent with this visit with this patient was 45 minutes reviewing history, physical exam, cervical imaging review, and implementation of treatment plan or further diagnostic testing Lucio Pinedo MD,PhD [facility] Orders: Orders PT Evaluation and Treatment Today M54.12 - Radiculopathy, cervical region Coding Level of Care Code New Pt Level 4 (68359) Diagnoses Cervical radiculopathy M54.12
[2025-04-20 14:20] VITALS: BMI 38.6
== END 2025-04-20 14:51 | disposition home or self-care (01) ==
LOC: HO.HNS 13:57
PROVIDERS: PCP Internal Medicine; Referring Provider Orthopaedic Surgery; Visit Provider Physician Assistant
DX: M54.12 Radiculopathy, cervical region (principal)
CPT/HCPCS: 99204

== ENCOUNTER → 2025-04-20 13:56 | Outpatient (BNVA) | payer MEDICARE, MEDICAID, SELFPAY | PROVIDERS: PCP Internal Medicine; Referring Provider Orthopaedic Surgery; Visit Provider Physician Assistant | DX: M54.12 Radiculopathy, cervical region (principal) | CPT/HCPCS: 99202 ==

== ENCOUNTER → 2025-05-05 19:45 | Outpatient (BNV) | payer MEDICARE, MEDICAID, SELFPAY | PROVIDERS: PCP Internal Medicine; Visit Provider Radiology Diagnostic Ultrasound | DX: M19.012 Primary osteoarthritis, left shoulder (principal); M65.812 Other synovitis and tenosynovitis, left shoulder | CPT/HCPCS: 73221 ==

== ENCOUNTER 2025-05-05 19:47 | Outpatient (REF) | payer MEDICARE, MEDICAID, SELFPAY ==
--- NOTE | ~2025-05-05 | MR_ITS ---
EXAMINATION: MR SHOULDER WITHOUT CONTRAST, LEFT CLINICAL INFORMATION: Instability COMPARISON: X-ray 04/03/2025 TECHNIQUE: MRI of the shoulder without contrast was performed on a high-field scanner. FINDINGS: ROTATOR CUFF: Supraspinatus: Mild tendinosis. Low-grade articular surface/intrasubstance tear in the mid/posterior fibers measuring approximately 2.2 cm AP, 1.4 cm medial-lateral. Infraspinatus: Mild tendinosis Teres minor: Intact. Subscapularis tendon: Mild tendinosis. Small low-grade deep surface fraying/tear in the distal fibers. No muscle atrophy or fatty infiltration. BICEPS: Possible mild proximal biceps tendinosis. CORACOACROMIAL ARCH: The undersurface of the acromion is mildly curved with no subacromial spur. Mild acromioclavicular arthritis. Trace subacromial subdeltoid bursitis. LABRUM/CAPSULE: Small caliber and irregularity of the superior labrum, suggesting degeneration and tear. T2 signal in the posterior labrum from degeneration plus/minus tear. Inferior labral degeneration.. Slight thickening of the inferior glenohumeral ligament/capsule. GLENOHUMERAL JOINT/MARROW: Mild glenohumeral arthritis. No fracture. No aggressive marrow replacing lesion. No significant effusion. No axillary lymphadenopathy. MR/MR shoulder LT wo con IMPRESSION: * Mild supraspinatus tendinosis. 2.2 x 1.4 cm bursal surface/intrasubstance/low-grade tear. * Mild infraspinatus tendinosis. Mild subscapularis tendinosis with distal deep surface fraying/tear.. * Possible mild proximal biceps tendinosis. * Superior labral findings suggestive degenerative tearing. Posterior labral degeneration plus/minus undisplaced tear. *Inferior capsule findings could relate to lack of distention or capsulitis. *Mild glenohumeral joint arthritis. Electronically signed by: Kirt Arrington MD 05/06/2025 11:11 AM ELODIA
--- OUTSIDE RECORDS SUMMARY | 2025-05-05 19:53 | XMS_ITS | Clinical Summary ---
Author Organization [facility] Address [address] [place] [address] Phone Care Team Providers Care Polisher Implant Name Role Phone Eliebertin Mo Primary Care Provider [phone] Allergies Active Allergy Reactions Criticality Noted Date [...] 04/08/2025 Anxiety 04/08/2025 Crohn's disease of colon ([facility] V24, [facility] V 28) 04/08/2025 Overview (04/08/2025): Colonoscopy 2011 Crohn's disease, repeat 2016. Diabetes mellitus type II, c ontrolled ([facility] V24, [facility] V28) 04/08/2025 Hypercholesterolemia 04/08/2025 Hypertension 04/08/2025 Marijuana use 04/08/2025 Opiate dependence ([facility] V24, [facility] V28) 01/2025 Severe obesity ([facility] V24, [facility] V28) 2024 Tick bite of left calf 04/08/2025 Crohn's disease of small int estine with fistula ([facility] V24, [facility] V28) 07/15/2024 Encounters Date Type Department Care Team Description 04/29/2025 Telephone Gastroenterology [facility] 175 [facility] [address] [phone] Xenia Son PA 04/13/2025 Telephone Gastroenterology [facility] [address] [phone] Xenia Son PA 02/20/2025 Telephone Gastroenterology - [place] [address] [phone] Xenia Son PA 02/17/2025 Telephone Gastroenterology - [place] [address] [phone] Xenia Son PA 02/12/2025 Telephone Gastroenterology - [place] [address] [phone] Xenia Son PA 02/05/2025 7:40 AM EDT - 02/05/2025 11:59 PM EDT Hospital Encounter [facility] CT Scan [address] [place] [address] Crohn's disease of small intestine with fistula ([facility] V24, [facility] V28) Discharge Disposition: Home or Self Care from Last 3 Months Surgical History Surgery Date Site/Laterality Comments OTHER SURGICAL HISTORY COLONOSCOPY COLON SURGERY Medical History Medical History Date Comments Hyperlipidemia Hypertension Diabetes mellitus ([facility] V[facility], [facility] V28) Crohn's disease of colon with fistula ([facility] V 24, [facility] V28) Irritable bowel syndrome Anxiety Depression Chronic pain disorder Arthritis Joint pain multtiple Abdominal pain despite thera py for Crohn's disease ([facility] V24, [facility] V28) Social History Tobacco Use Types Packs/Day [...] Care Team (Late st Contact Info) Description 05/18/2025 1:20 PM EST Office Visit Gastroenterology - [address] [facility] [address] [place] [phone] Xenia Son PA [address] [facility] [address] [place] [address] Health Maintenance Due Date Last Done Comments [...] Signed Date: 02/05/2025 16:07 ET Workstation ID: [id number] Transcribed By: Self Edit Transcribed Date: 02/05/2025 [...] Signed Date: 02/05/2025 16:07 ET Workstation ID: [id number] Transcribed By: Self Edit Transcribed Date: 02/05/2025 15:57 ET Xenia RUTH IMG CT PROCEDURES Final Resul t * (ABNORMAL) Comprehensive metabolic panel (01/07/2025 2:50 [...] METHOD 01/07/2025 7:24 PM [facility] AST (SGOT) 14 10 - 42 unit/L LAB CHEMISTRY METHOD 01/07/2025 7:24 PM [facility] ALT (SGPT) 27 10 - 60 unit/L LAB CHEMISTRY METHOD 01/07/2025 7:24 PM [facility] Alkaline Phosphatase 86 42 - 121 unit/L LAB CHEMISTRY METHOD 01/07/2025 7:24 PM [facility] Total Protein 7.8 6.0 - 8.0 g/dL LAB CHEMISTRY METHOD 01/07/2025 7:24 PM [facility] Albumin 3.9 3.2 - 5.0 g/dL LAB CHEMISTRY METHOD 01/07/2025 7:24 PM [facility] Total Bilirubin 0.4 0.0 - 1.4 mg/dL LAB CHEMISTRY METHOD 01/07/2025 7:24 PM [facility] Blood Venous blood specimen / Unknown Venipuncture / Unknown 01/07/2025 2:50 PM EDT 01/07/2025 2:50 PM EDT Xenia RUTH LAB BLOOD ORDERABLES Final Re sult [facility] [address] [place] [address], [place] [phone] * Lipid panel with reflex to direct [...] 10/17/2024 2:48 PM EDT us Camacho Tello LUMBER PRESS OPERATOR LAB BLOOD ORDERABLES Final Resul t [facility] [address] [place] [address], [place] [phone] * Hemoglobin A1c (10/17/2024 2:48 PM EDT) Hemoglobin A1C 6.0 <6.5 % LAB CHEMISTRY METHOD 10/17/2024 9:34 PM EDT [facility] Mean Bld Glu Estim. 126 mg/dL LAB CHEMISTRY METHOD 10/17/2024 9:34 PM EDT [facility] Blood Venous blood specimen / Unknown Venipuncture / Unknown 10/17/2024 2:48 PM EDT 10/17/2024 2:48 PM EDT us Camacho Tello LUMBER PRESS OPERATOR LAB BLOOD ORDERABLES Final Resul t [facility] [address] [place] [address], from Last 3 Months or Most Recently Relevant to Health Maintenance Insurance [place] - [place] MEDICARE Care Teams Polisher Implant Relationship Specialty Start Date End Date Mo Magana DO [address] [place] [phone] PCP - General 08/14/22
--- OUTSIDE RECORDS SUMMARY | 2025-05-05 19:53 | XMS_ITS | Patient Health Record ---
Author Organization [facility] Address [address] [place] [address] Care Team Providers Care Chief Librarian Work With Blind Name Role Phone Izzy KRUSE, Mo Primary Care Provider Lita Abebe Unavailable [phone] Allergies Allergen (clinical drug ingredient) Drug/Non Drug Allergy documented on EMR Reaction Allergy Type Onset Date Status Humira Unknown Drug Allergy Active Results Component Value Reference Range Notes X ray : Foot, left 3V Reviewed date:04/21/2025 04:59:44 PM Interpretation:See Examination above Performing Lab: Notes/Report: See Examination above X ray : Foot, right 3V Reviewed date:04/21/2025 04:59:53 PM Interpretation:See Examination above Performing Lab: Notes/Report: See Examination above HEMOGLOBIN A1C (GLYCOHEMOGLO BIN) Reviewed date:04/21/2025 01:04:48 PM Interpretation: Performing Lab: Notes/Report: HEMOGLOBIN A1C % (HH) 7.9 Reason For Referral No Information Medications Medication SIG (Take, Route, Frequency, Duration) Notes Start Date End Date Status Gabapentin 300 MG 1 capsule Orally 3 t imes a day; Duration: 30 days 04/21/2025 Active Dicyclomine HCl Acti ve Tamsulosin HCl 0.4 MG 1 capsule Orally O nce a day Active Extra Depth Orthopedic Shoes (1 Pair) with Customized Heat Molded Multidensity Innersoles (3 Pair) Dx: NIDDM/Polyneuropathy (E11.42), Hammertoe Foot Deformity (M20.41,M20.42), Preulcerative Skin Lesion(s) (L85.1); Duration: 365 days 04/21/2025 Active Ibuprofen Active Gabapentin 300 MG 1 capsule Orally twi ce a day Active glipiZIDE ER 10 MG 1 tablet with breakf ast Orally Once a day Active LORazepam Active Betamethasone Dipropionate Active metFORMIN HCl 1000 MG 1 tablet with a me al Orally twice a day Active amLODIPine Besylate 5 MG 1 tablet Orally Once a day Active FreeStyle Test Activ e glipiZIDE 5 MG 1 tablet 30 minutes before breakfast Orally twice a day Active Omeprazole Active Losartan Potassium 100 MG 1 tablet Orally Once a day Not-Taking Rosuvastatin Calcium 10 MG 1 tablet Orally Once a day Active Immunizations Vaccine Route Administration Date Status Comme nts Influenza Unknown 04/21/2025 Refused Social History Tobacco Use: Social History Observation Description Date Details (start date - stop date) Never Smoker NA - NA Tobacco use other than smoking: Question Answer Notes Are you an other tobacco user? No Tobacco Control (Standard) Question Answer Notes Tobacco use: Nonsmoker Additional Findings: Tobacco non-user Current no nsmoker AUDIT-C (Standard) Question Answer Notes Did you have a drink containing alcohol in the p ast year? No Points 0 Interpretation Negative Problems Problem Type SNOMED Code ICD Code Onset Dates Problem Status W/U Status Risk Notes Problem Acquired hammer toe of right foot (7751104172679252 ) Other hammer toe(s) (acquired), right foot (M20.41) Active confirmed Problem Acquired hammer toe of left foot (0081440982244016 ) Other hammer toe(s) (acquired), left foot (M20.42) Active confirmed Problem Polyneuropathy due to type 2 diabetes mellitus (168294231) Type 2 diabetes mellitus with diabetic polyneuropathy (E11.42) Active confirmed Problem Neuropathy (289285279) Neuropathy (G62.9) Active confirmed Vital Signs Blood pressure diastolic 75 mm Hg 04/21/2025 Height 6ft in 04/21/2025 Blood pressure systolic 130 mm Hg 04/21/2025 Weight 290 lbs 04/21/2025 BMI 39.33 kg/m2 04/21/2025 Procedures Procedure Date Ordered Date Performed Result Body Sit e 05507-GQCUJWR NAIL, 1-5 04/21/2025 N/A 51803-IYDX SKIN LESIONS, 2 TO 4 04/21/2025 N/A [id number] DYSTROPHIC NAILS ANY # 04/21/2025 N/A Encounters Encounter Location Date Provider Diagnosis [facility] [address] [place] [address] 04/21/2025 Lita Cast Type 2 diabetes katerina itus with diabetic polyneuropathy E11.42 ; Tinea unguium B35.1 ; Other hammer toe(s) (acquired), right foot M20.41 ; Other hammer toe(s) (acquired), left foot M20.42 ; Neuritis M79.2 ; Neuropathy G62.9 ; Pain in left foot M79.672 and Pain in right foot M79.671 Assessments Encounter Date Diagnosis (ICD Code) Assessment Notes Treatment Notes Treatment Clinical Notes Section Notes 04/21/2025 Type 2 diabetes mellitus with diabetic polyneuropathy (ICD-10 - E11.42) 04/21/2025 Tinea unguium (ICD-10 - B35.1) 04/21/2025 Other hammer toe(s) (acquired), right foot (ICD-10 - M20.41) Patient Educated with: DIABETIC FOOT CARE INSTRUCTIONS. pdf (DIABETIC FOOT CARE INSTRUCTIONS. pdf) 04/21/2025 Other hammer toe(s) (acquired), left foot (ICD-10 - M20.42) 04/21/2025 Neuritis (ICD-10 - M79.2) 04/21/2025 Neuropathy (ICD-10 - G62.9) 04/21/2025 Pain in left foot (ICD-10 - M79.672) 04/21/2025 Pain in right foot (ICD-10 - M79.671) Plan Of Treatment Pending Test Test Name Order Date [id number] NAIL, 1-5 04/21/2025 01160-WUQX SKIN LESIONS, 2 TO 4 04/21/20 25 [id number] DYSTROPHIC NAILS ANY # Next Appt Details Provider Name:Lita Cast , 08/25/2025 02:00:00 PM, [address] [facility], [place], [address], Insurance Providers Payer Name Payer Address Payer Phone Subscriber Number Group Number Insured Name Patient Relationship to Insured Coverage Start Date Coverage End Date Medicare National Govt [employer] [address] [place] [address] [id number] Donell Aguilar Self - patient is the insured 5 Medical (General) History Medical History History ICD Code Anxiety Back,Hip,and Knee pain Crohns disease Diabetic High Blood Pressure Numbness Chron's/ Colitis Psoriasis OA in knees Suboxone Fistula Surgical History Surgery Date(Month/Year) 3 feet of intestines removed 12/24 Hospitalization History Reason Date(Month/Year) pinched nerve 03/26
--- OUTSIDE RECORDS SUMMARY | 2025-05-05 19:53 | XMS_ITS | Encounter Summary ---
Author Organization [facility] Address [address] [place] [address] Care Team Providers Care Sole Rounder Name Role Phone ClairMo fu Primary Care Provider [phone] Encounter Details Date Type Department Care Team ([facility] Contact Info) Description 01/22/2025 Lab Requisition [facility] - Main Lab [address] [facility] [place] [phone] Janice Tello NP [address] [place] [address] [address] [place] [address] Urinary tract infection, site not specified; Hematuria, [...] Upcoming Encounters Date Type Department Care Team ([facility] Contact Info) Description 05/18/2025 1:20 PM EST Office Visit Gastroenterology - [address] [facility] [address] [place] [phone] Xenia Son PA 299 [facility] [address] [place] [address] documented as of this encounter Procedures Procedure [...] reflex microscopic (01/22/2025 9:00 AM EDT) Specific [place] Urine 1.030 1.003 - 1.030 LAB URINALYSIS - AUTOMATED METHOD 01/22/2025 1:06 PM [facility] pH, Urine 5.5 5.0 - 8.0 pH LAB URINALYSIS - AUTOMATED METHOD 01/22/2025 1:06 PM [facility] Leukocytes, Urine Negative Negative LAB URINALYSIS - AUTOMATED METHOD 01/22/2025 1:06 PM [facility] Nitrite, Urine Negative Negative LAB URINALYSIS - AUTOMATED METHOD 01/22/2025 1:06 PM [facility] Protein, Urine 30(A) <=Trace mg/dL LAB URINALYSIS - AUTOMATED METHOD 01/22/2025 1:06 PM [facility] Glucose, Urine Negative Negative mg/dL LAB URINALYSIS - AUTOMATED METHOD 01/22/2025 1:06 PM [facility] Ketones, Urine Trace(A) Negative mg/dL LAB URINALYSIS - AUTOMATED METHOD 01/22/2025 1:06 PM [facility] Urobilinogen, Urine 1.0 0.2 - 1.0 mg/dL LAB URINALYSIS - AUTOMATED METHOD 01/22/2025 1:06 PM T [facility] Bilirubin, Urine Negative Negative LAB URINALYSIS - AUTOMATED METHOD 01/22/2025 1:06 PM T [facility] Blood, Urine Negative Negative LAB URINALYSIS - AUTOMATED METHOD 01/22/2025 1:06 PM [facility] RBC, Urine 1.3 0 - 4 /HPF LAB URINALYSIS - AUTOMATED METHOD 01/22/2025 1:06 PM EDT [facility] WBC, Urine 1.0 0 - 4 /HPF LAB URINALYSIS - AUTOMATED METHOD 01/22/2025 1:06 PM [facility] Squamous Epithelial, Urine 12 0 - 60 /LPF LAB URINALYSIS - AUTOMATED METHOD 01/22/2025 1:06 PM [facility] Bacteria, Urine Negative Negative /HPF LAB URINALYSIS - AUTOMATED METHOD 01/22/2025 1:06 PM [facility] Hyaline Casts, Urine 0.8 0 - 3 /LPF LAB URINALYSIS - AUTOMATED METHOD 01/22/2025 1:06 PM [facility] Urine Urine specimen obtained by clean catch procedure / Unknown 01/22/2025 9:00 AM EDT 01/22/2025 11:06 AM EDT us Camacho Tello MANAGER [facility] URINE ORDERABLES Final Resul t [facility] [address] [place] [address], * Culture urine (01/22/2025 9:00 AM EDT) Culture, Urine <10,000 CFU/mL gram positive cocci, insignificant count, no further workup 01/23/2025 7:44 AM EDT [facility] Urine Urine specimen obtained by clean catch procedure / Unknown 01/22/2025 9:00 AM EDT 01/22/2025 11:06 AM EDT us Camacho Tello MANAGER [facility] MICROBIOLOGY - GENERAL ORDER [place] Final Result [facility] [address] [place] [address], documented in this encounter Visit Diagnoses Diagnosis Urinary tract infection, site not specified Hematuria, unspecified documented in this encounter Care Teams Sole Rounder Relationship Specialty Start Date End Date Mo Magana DO [address] [place] [address] PCP - General 08/14/22 documented as of this encounter
--- OUTSIDE RECORDS SUMMARY | 2025-05-05 19:53 | XMS_ITS | Encounter Summary ---
Author Organization [facility] Address [address] [place] [address] Care Team Providers Care Medicare Biller Name Role Phone ClairhelgachapinMo denton Primary Care Provider [phone] Reason for Visit * Reason Onset Date Comments Medication Reaction 04/29/2025 Encounter Details Date Type Department Care Team ([facility] Contact Info) Description 04/29/2025 Telephone Gastroenterology - [place] [address] [facility] [address] [facility] [address] [place] [address] Xenia Son PA 299 [facility] [address] [place] [address] Social History Tobacco Use Types Packs/Day Years [...] as of this encounter Progress Notes * Lizette Talavera MA - 04/30/2025 10:48 AM EDT Spoke with patient about recommendations, verbalized will keep upcoming appointment to discuss. Provided patient with new location details ([address]). MDK * FARAZ Sagastume - 04/29/2025 4:00 PM EDT Sounds like reaction, advised him to follow-up on May 18, so we can discuss everything and decide on further treatment. TY * Lizette Talavera MA - 04/29/2025 12:34 PM EDT Sent to provider to advise. MDK * Michelle Parnell - 04/29/2025 12:18 PM EDT Pt is calling stating he was on rinvoq and was taken off due to having a reaction. He states he wasexperiencing itchiness and his face is very dry. He is wondering if that is a side effect of the medication ? Please call and advise when available. documented in this encounter Plan of Treatment Upcoming Encounters Date Type Department Care Team (Late st Contact Info) Description 05/18/2025 1:20 PM EST Office Visit Gastroenterology - [address] [address] Xenia Son PA [address] [address] documented as of this encounter Visit Diagnoses Not on filedocumented in this encounter Care Teams Medicare Biller Relationship Specialty Start Date End Date Mo Magana DO [address] [place] [phone] PCP - General 08/14/22 documented as of this encounter
--- OUTSIDE RECORDS SUMMARY | 2025-05-05 19:53 | XMS_ITS | Data Portability ---
Author Organization [facility] Address [address] [place] [address] Assessment Encounter Date Assessment Date Assessment LastModified [...] to your physical therapy appointment 2023 024 [facility] [place], [address] [place] [address], [place], [address], 4 14:53:53 physical therapist referral - Strengtheni [...] etc. Referring Physician: Lucio Kaiser, Orthopedic Surgery, [id number] Encounter Date: 09/11/2023 Physical Therapist Referral for Osteoarthritis of knee ROM, Strengthening, Conditioning, Gait Training Etc.Physical therapy to begin 7- 10 days after surgery, in an outpatient site. Please bring this script and attached protocol with you to your physical therapy appointment Referring Physician: Lucio Kaiser, Orthopedic Surgery, [id number] Encounter Date: 09/11/2023 Results Created Date Observation [...] ===== ===== ===== === Not Available [facility] ([facility]) [address] [facility], [place], [address], 09/20/2023 16:06:50 Result Notes None recorded. Medical Equipment None Reported. Allergies Allergen ID Allergen Name Allergen Category Reaction Reaction Severity Criticality Documentation Date Start Date Code Code System Note Provider Name and Address Organization Details Recorded Time 523538 Humira medicatio n Not available Not available Not available 09/11/2023 81860 4 RxNorm CHIQUITA vargas [place] - [facility] 14:55:40 Medications Name Sig Start Date Stop [...] Address Organization Details Last Updated DateTime 09/11/2023 711353.23 g 37.5 kg/m2 185.42 cm CHIQUITA DIGGS [place] - [facility] 09/11/2023 14:55:03 Social History None recorded. Functional Status None recorded. Mental Status None recorded. Family History Nothing Reported. Medical History No medical history recorded. Past Encounters Encounter ID Performer Location Encounter Start Date Encounter Closed Date Diagnosis/Indication Diagnosis SNOMED-CT Code Diagnosis ICD10 Code Diagnosis IMO Codes Diagnosis Note [id number] MD [facility] 2nd floor [address] [place] [address] 09/11/2023 14:38:30 10/01/2023 13:34:49 Osteoarthritis of right knee joint 6972147454 65861 M17.11 Osteoarthr itis of knee 160286938 M17.9 Health Concerns Section Related Observation LastModified by Organization Detai ls LastModified Time None Recorded Concern Status LastModified by Organization Details LastModified Time None Recorded Advance Directives Directive None Recorded Payers Insurance Date Sequence Insurance Name Policy Number Policy Concepcion Covered Member ID Concepcion Member ID Guarantor Name 06/28/2024 1 [facility] [employer] (MEDICAID REPLACEMENT - HMO) [id number] Donell Aguilar [id number] Donell Aguilar
--- OUTSIDE RECORDS SUMMARY | 2025-05-05 19:53 | XMS_ITS | Encounter Summary ---
Author Organization [facility] Address [address] [place] [address] Care Team Providers Care Cvicu Nurse Name Role Phone ClairhelgachapinMo denton Primary Care Provider [phone] Reason for Visit * Reason Onset Date Comments provider call back 04/13/2025 Encounter Details Date Type Department Care Team ([facility] Contact Info) Description 04/13/2025 Telephone Gastroenterology - [place] [address] [facility] [address] [facility] [address] [place] [address] Xenia Son PA [address] [facility] [address] [place] [address] Social History Tobacco Use Types Packs/Day Years [...] encounter Progress Notes * FARAZ Sagastume - 05/05/2025 4:34 PM EST Ankuri, please help me to put the plan. Thank you so so much * Lizette Talavera MA - 05/04/2025 8:57 AM EST Received Entyvio Authorization from 01/30/2025-04/21/2026. [address] therapy plan for patient. BEAU * Lizette Talavera MA - 04/16/2025 8:47 AM EDT Faxed PA form along with clinicals for Entyvio 300mg IV to [facility] at . BEAU * FARAZ Sagastume - 04/14/2025 12:45 PM [...] or he has a reaction to. Pat luis fernandont states he feels like he is not being helped & rescheduling into September is crazy. Patient states he will just stop eating all together. documented in this encounter Plan of Treatment Upcoming Encounters Date Type Department Care Team (Late st Contact Info) Description 05/18/2025 1:20 PM EST Office Visit Gastroenterology - [address] [facility] [address] [place] [address] Xenia Son PA [address] [facility] [address] [place] [address] documented as of this encounter Visit Diagnoses Not on filedocumented in this encounter Care Teams Cvicu Nurse Relationship Specialty Start Date End Date Mo Magana DO [address] [place] [phone] PCP - General 08/14/22 documented as of this encounter
== END 2025-05-05 19:48 | disposition home or self-care (01) ==
LOC: HO.MRI 19:47
PROVIDERS: PCP Internal Medicine; Visit Provider Orthopaedic Surgery
DX: M25.312 Other instability, left shoulder (principal)
CPT/HCPCS: 73221

== ENCOUNTER 2025-05-12 10:23 | Outpatient (AMB) | payer MEDICARE, MEDICAID, SELFPAY ==
--- NOTE | 2025-05-12 10:29 | MHC.OFFVIS ---
Intake Visit Reasons: OV-MRI review left shoulder/left shoulder pain Intake Note: Donell is a 59 year old male who presents today for left shoulder pain and an MRI review. The patient describes his left shoulder pain as sharp in nature. He does have progressively worsening neck pain which radiates into his left arm. He is due to undergo cervical spine surgery in July. Allergies No Known Allergies Allergy (Verified 05/12/25 10:29) Medication List - Last Reconciled 05/12/25 by Bladimir Michael MD amlodipine 5 mg PO DAILY diphenhydramine HCl (Banophen) 25 mg PO Q6H PRN gabapentin 300 mg PO BID glipizide ER 5 mg PO TID ibuprofen 800 mg PO BID PRN lorazepam 0.5 mg PO BID losartan 100 mg PO DAILY metformin 1,000 mg PO BID oxycodone 5 mg PO Q6H PRN prednisone 40 mg (2 x 20 mg) PO DAILY 4 days rosuvastatin 10 mg PO BEDTIME tamsulosin 0.4 mg PO DAILY upadacitinib ER (Rinvoq) 45 mg PO DAILY PFSH Medical History Crohn disease HLD (hyperlipidemia) Class 3 obesity Neuropathy Hypertension Diabetes Surgical History History of intestinal surgery Social History (Updated 03/17/25 @ 15:31 by MAILE Blackman) Household Members: None Housing: Apartment Do you presently have visiting nurse or other home services: No Alcohol intake: former Patient Tobacco Use Status: Never used Tobacco Substance Use Type: Marijuana service: No Current occupational status: disabled Current occupation: right hand dominant Physical Exam Extrem Other: Left shoulder examination shows decreased range of motion when compared to his right shoulder, 4+ out of 5 strength with supraspinatus testing, positive impingement signs, tenderness over his acromioclavicular joint, no instability Results Reviewed Results Reviewed: MRI of the patient's left shoulder show severe acromioclavicular joint narrowing, a type 3 acromion, no full-thickness rotator cuff tear noted Assessment & Plan Assessment & Plan (1) Left shoulder pain: Code(s): M25.512 - Pain in left shoulder Category: Medical Plan Mr. Aguilar presents with left shoulder pain due to impingement syndrome and acromioclavicular joint arthritis. I had a lengthy discussion with the patient regarding the treatment options. At this point his shoulder pain is tolerable to him. Will follow up for his cervical spine surgery as scheduled. I will see him back once he has recovered from that surgery. Feel free to call me at any time should questions regarding his orthopedic management arise. I spent 22 minutes in reviewing the patient's records and imaging studies, seeing the patient and documenting in the medical record. Coding Level of Care Code Est Pt Level 3 (69313) Complex EM visit Add On G2211 Diagnoses Left shoulder pain M25.512
--- OUTSIDE RECORDS SUMMARY | 2025-05-12 11:57 | XMS_ITS | Encounter Summary ---
Author Organization [facility] Address [address] [place] [address] Care Team Providers Care Medical Scientific Liaison Name Role Phone ClairhelgachapinMo denton Primary Care Provider [phone] Reason for Visit * Reason Onset Date Comments Medication Reaction 04/29/2025 Encounter Details Date Type Department Care Team ([facility] Contact Info) Description 04/29/2025 Telephone Gastroenterology - [place] 175 [facility] 175 [facility] [address] [place] [address] Xenia Son PA 299 [facility] [address] [place] [address] Social History Tobacco Use Types Packs/Day Years [...] as of this encounter Progress Notes * Willa Shay MA - 05/12/2025 11:16 AM EST Couldn't confirm exact date he stopped, but it has been 2-3 weeks at this point. said since stopping the rinvoq his face is so dry, red, cracking and flaking even in his ear lobes. The dryness started on his forehead, then spread all over his head/face. He would like a cream to help this. * FARAZ Sagastume - 05/12/2025 10:50 AM EST Something does not make any sense, he called a few weeks ago about reaction, so my question is whenexactly he stopped the Rinvoq to kind of determine if that was a reaction or not... * Sharlene Tejeda - 05/12/2025 9:00 AM EST Pt is calling about is ears being red and painful from the renvoq and is wondering is there something he can get for the reaction * Lizette Talavera MA - 04/30/2025 10:48 AM EDT Spoke with patient about recommendations, verbalized will keep upcoming appointment to discuss. Provided patient with new location details ([address] [place] [address] [address]). BEAU * FARAZ Sagastume - 04/29/2025 4:00 PM EDT Sounds like reaction, advised him to follow-up on May 18, so we can discuss everything and decide on further treatment. TY * Lizette Talavera MA - 04/29/2025 12:34 PM EDT Sent to provider to advise. BEAU * Michelle Parnell - 04/29/2025 12:18 PM [...] Upcoming Encounters Date Type Department Care Team ([facility] st Contact Info) Description 05/18/2025 1:20 PM EST Office Visit Gastroenterology - [address] [address] Xenia Son PA [address] [address] documented as of this encounter Visit Diagnoses Not on filedocumented in this encounter Care Teams Medical Scientific Liaison Relationship Specialty Start Date End Date Mo Magana DO [address] [place] [phone] PCP - General 08/14/22 documented as of this encounter
--- OUTSIDE RECORDS SUMMARY | 2025-05-12 11:57 | XMS_ITS | Data Portability ---
Author Organization [facility], [facility] Address [address] [place] [address] Assessment Encounter Date Assessment Date Assessment LastModified [...] to your physical therapy appointment 2023 024 [facility] [place], [address] [place] [address], [place], [address], 4 14:53:53 physical therapist referral - Strengtheni [...] etc. Referring Physician: Lucio Kaiser, Orthopedic Surgery, [id number] Encounter Date: 09/11/2023 Physical Therapist Referral for Osteoarthritis of knee ROM, Strengthening, Conditioning, Gait Training Etc.Physical therapy to begin 7- 10 days after surgery, in an outpatient site. Please bring this script and attached protocol with you to your physical therapy appointment Referring Physician: Lucio Kaiser, Orthopedic Surgery, [id number] Encounter Date: 09/11/2023 Results Created Date Observation [...] ===== ===== ===== === Not Available [facility] ([facility]) [address] [facility] [place], [place], [address], 09/20/2023 16:06:50 Result Notes None recorded. Medical Equipment None Reported. Allergies Allergen ID Allergen Name Allergen Category Reaction Reaction Severity Criticality Documentation Date Start Date Code Code System Note Provider Name and Address Organization Details Recorded Time 184090 Humira medicatio n Not available Not available Not available 09/11/2023 04480 4 RxNorm CHIQUITA vargas [place] - [facility] 14:55:40 Medications Name Sig Start Date [...] Address Organization Details Last Updated DateTime 09/11/2023 916803.23 g 37.5 kg/m2 185.42 cm CHIQUITA DIGGS [place] - [facility] 09/11/2023 14:55:03 Social History None recorded. Functional Status None recorded. Mental Status None recorded. Family History Nothing Reported. Medical History No medical history recorded. Past Encounters Encounter ID Performer Location Encounter Start Date Encounter Closed Date Diagnosis/Indication Diagnosis SNOMED-CT Code Diagnosis ICD10 Code Diagnosis IMO Codes Diagnosis Note [id number] MD Penelope Dutton 2nd floor [address] [place] [address] 09/11/2023 14:38:30 10/01/2023 13:34:49 Osteoarthritis of right knee joint 7640651711 42799 M17.11 Osteoarthr itis of knee 472957893 M17.9 Health Concerns Section Related Observation LastModified by Organization Detai ls LastModified Time None Recorded Concern Status LastModified by Organization Details LastModified Time None Recorded Advance Directives Directive None Recorded Payers Insurance Date Sequence Insurance Name Policy Number Policy Concepcion Covered Member ID Concepcion Member ID Guarantor Name 06/28/2024 1 [facility] (MEDICAID REPLACEMENT - HMO) [id number] Donell Aguilar [id number] Donell Aguilar
--- OUTSIDE RECORDS SUMMARY | 2025-05-12 11:57 | XMS_ITS | Clinical Summary ---
Author Organization [facility] Address [address] [place] [address] Phone Care Team Providers Care Executive Officer Special Warfare Team Name Role Phone Eliebertin Mo Primary Care Provider [phone] Allergies Active Allergy Reactions Criticality Noted Date [...] mg total) by mouth. 02/07/202 0 Active Active Problems Problem Noted Date Diagnosed Date AA (alcohol abuse) 04/08/2025 Abnormal liver function tests 04/08/2025 Anxiety 04/08/2025 Crohn's disease of colon ([facility] V24, [facility] V 28) 04/08/2025 Overview (04/08/2025): Colonoscopy 2012 Crohn's disease, repeat 2016. Diabetes mellitus type II, c ontrolled ([facility] V24, [facility] V28) 04/08/2025 Hypercholesterolemia 04/08/2025 Hypertension 04/08/2025 Marijuana use 04/08/2025 Opiate dependence ([facility] V24, [facility] V28) 01/2025 Severe obesity ([facility] V24, [facility] V28) 2024 Tick bite of left calf 04/08/2025 Crohn's disease of small int estine with fistula ([facility] V24, [facility] V28) 07/15/2024 Encounters Date Type Department Care Team Description 04/29/2025 Telephone Gastroenterology [facility] [address] [phone] Xenia Son PA 04/13/2025 Telephone [facility]enterology [facility] [address] [phone] Xenia Son PA 02/20/2025 Telephone [facility] [address] [phone] Xenia Son PA 02/17/2025 Telephone Gastroenterology - [place] [address] [phone] Xenia Son PA 02/12/2025 Telephone Gastroenterology - [place] [address] [phone] Xenia Son PA from Last 3 Months Surgical History Surgery Date Site/Laterality Comments OTHER SURGICAL HISTORY COLONOSCOPY COLON SURGERY Medical History Medical History Date Comments Hyperlipidemia Hypertension Diabetes mellitus ([facility] V24, [facility] V28) Crohn's disease of colon with fistula ([facility] V 24, [facility] V28) Irritable bowel syndrome Anxiety Depression Chronic pain disorder Arthritis Joint pain multtiple Abdominal pain despite thera py for Crohn's disease ([facility] V24, [facility] V28) Social History Tobacco Use Types Packs/Day [...] Office Visit Gastroenterology - [address] [facility] [address] [place] [phone] Xenia Son PA [address] [facility] [address] [place] [address] Health Maintenance Due Date Last Done Comments [...] Procedure Name Priority Date/Time Associated Diagnosis Comments COMPREHENSIVE METABOLIC PANEL Routine 01/07/2025 2:50 PM EDT Crohn's disease of small intestine with fistula ([facility] V24, [facility] V28) HEMOGLOBIN A1C Routine 10/17/2024 2:48 PM EDT HTN (hypertension) HLD (hyperlipidemia) DM (diabetes mellitus) ([facility] V24, [facility] V28) LIPID PANEL WITH REFLEX TO DIRECT LDL Routine 10/17/2024 2:48 PM EDT HTN (hypertension) HLD (hyperlipidemia) DM (diabetes mellitus) ([facility] V24, [facility] V28) from Last 3 Months or Most Recently Relevant to Health Maintenance Results * (ABNORMAL) Comprehensive metabolic panel (01/07/2025 2:50 PM EDT) Sodium 136 133 - 145 mmol/L LAB CHEMISTRY METHOD 01/07/2025 7:24 PM [facility] Potassium 4.0 3.5 - 5.5 mmol/L LAB CHEMISTRY METHOD 01/07/2025 7:24 PM [facility] Chloride 102 96 - 110 mmol/L LAB CHEMISTRY METHOD 01/07/2025 7:24 PM [facility] CO2 23 21 - 32 mmol/L LAB CHEMISTRY METHOD 01/07/2025 7:24 PM [facility] Anion Gap 11 3 - 11 LAB CHEMISTRY METHOD 01/07/2025 7:24 PM [facility] Glucose 199(H) 70 - 100 mg/dL LAB CHEMISTRY METHOD 01/07/2025 7:24 PM [facility] BUN 13 5 - 25 mg/dL LAB CHEMISTRY METHOD 01/07/2025 7:24 PM [facility] Creatinine 1.12 0.70 - 1.30 mg/dL LAB CHEMISTRY METHOD 01/07/2025 7:24 PM [facility] eGFR 75 >=60 mL/min/1. 73m2 LAB CHEMISTRY METHOD 01/07/2025 7:24 PM [facility] Comment:Calculation based on the Chronic Kidney Disease Epidemiology Collaboration (CKD-EPI) equation refit without adjustment for race. BUN/Creatinine Ratio 11.6 LAB CHEMISTRY METHOD 01/07/2025 7:24 PM [facility] Calcium 9.9 8.5 - 10.5 mg/dL LAB CHEMISTRY METHOD 01/07/2025 7:24 PM [facility] AST (SGOT) 14 10 - 42 unit/L LAB CHEMISTRY METHOD 01/07/2025 7:24 PM [facility] ALT (SGPT) 27 10 - 60 unit/L LAB CHEMISTRY METHOD 01/07/2025 7:24 PM [facility] Alkaline Phosphatase 86 42 - 121 unit/L LAB CHEMISTRY METHOD 01/07/2025 7:24 PM [facility] Total Protein 7.8 6.0 - 8.0 g/dL LAB CHEMISTRY METHOD 01/07/2025 7:24 PM [facility] Albumin 3.9 3.2 - 5.0 g/dL LAB CHEMISTRY METHOD 01/07/2025 7:24 PM [facility] Total Bilirubin 0.4 0.0 - 1.4 mg/dL LAB CHEMISTRY METHOD 01/07/2025 7:24 PM [facility] Blood Venous blood specimen / Unknown Venipuncture / Unknown 01/07/2025 2:50 PM EDT 01/07/2025 2:50 PM EDT us Xenia Son PA LAB BLOOD ORDERABLES Final Re sult [facility] [address] [place] [address], [place] [phone] * Lipid panel with reflex to direct [...] PM EDT 10/17/2024 2:48 PM EDT us Janice Tello FIELD ADMINISTRATIVE ASSISTANT LAB BLOOD ORDERABLES Final Resul t [facility] [address] [place] [address], [place] [phone] * Hemoglobin A1c (10/17/2024 2:48 PM EDT) Hemoglobin A1C 6.0 <6.5 % LAB CHEMISTRY METHOD 10/17/2024 9:34 PM EDT [facility] Mean Bld Glu Estim. 126 mg/dL LAB CHEMISTRY METHOD 10/17/2024 9:34 PM EDT [facility] Blood Venous blood specimen / Unknown Venipuncture / Unknown 10/17/2024 2:48 PM EDT 10/17/2024 2:48 PM EDT us Camacho Tello FIELD ADMINISTRATIVE ASSISTANT LAB BLOOD ORDERABLES Final Resul t [facility] ([facility] [address] [place] [address], from Last 3 Months or Most Recently Relevant to Health Maintenance Insurance MEDICAID - [place] MEDICARE Care Teams Executive Officer Special Warfare Team Relationship Specialty Start Date End Date Mo Magana DO [address] [place] [phone] [facility] - General 08/14/22
--- OUTSIDE RECORDS SUMMARY | 2025-05-12 11:57 | XMS_ITS | Encounter Summary ---
Author Organization [facility] Address [address] [place] [address] Care Team Providers Care Railroad Operator Name Role Phone ClairMo fu Primary Care Provider Encounter Details Date Type Department Care Team ([facility] Contact Info) Description 01/22/2025 Lab Requisition [facility] - Main Lab [address] [facility] [place] [phone] Janice Tello NP [address] [place] [address] [address] [place] [address] Urinary tract infection, site not specified; Hematuria, [...] Upcoming Encounters Date Type Department Care Team ([facility] Contact Info) Description 05/18/2025 1:20 PM EST Office Visit Gastroenterology - [address] [facility] [address] [place] [phone] Xenia Son PA 299 [facility] [address] [place] [address] documented as of this encounter Procedures Procedure [...] reflex microscopic (01/22/2025 9:00 AM EDT) Specific [place] Urine 1.030 1.003 - 1.030 LAB URINALYSIS [...] - AUTOMATED METHOD 01/22/2025 1:06 PM T [facility] Bilirubin, Urine Negative Negative LAB URINALYSIS - AUTOMATED METHOD 01/22/2025 1:06 PM T [facility] Blood, Urine Negative Negative LAB URINALYSIS - AUTOMATED METHOD 01/22/2025 1:06 PM [facility] RBC, Urine 1.3 0 - 4 /HPF LAB URINALYSIS - AUTOMATED METHOD 01/22/2025 1:06 PM EDT [facility] WBC, Urine 1.0 0 [...] AM EDT 01/22/2025 11:06 AM EDT us Camacoh Tello ANIMAL PHYSIOLOGY TEACHER LAB URINE ORDERABLES Final Resul t [facility] [address] [place] [address], * Culture urine (01/22/2025 9:00 AM EDT) Culture, Urine <10,000 CFU/mL gram positive cocci, insignificant count, no further workup 01/23/2025 7:44 AM EDT [facility] Urine Urine specimen obtained by clean catch procedure / Unknown 01/22/2025 9:00 AM EDT 01/22/2025 11:06 AM EDT us Camacho Tello ANIMAL PHYSIOLOGY TEACHER LAB MICROBIOLOGY - GENERAL ORDER ARCADIO Final Result [facility] [address] [place] [address], documented in this encounter Visit Diagnoses Diagnosis Urinary tract infection, site not specified Hematuria, unspecified documented in this encounter Care Teams Railroad Operator Relationship Specialty Start Date End Date Mo Magana DO [address] [place] [phone] PCP - General 08/14/22 documented as of this encounter
--- OUTSIDE RECORDS SUMMARY | 2025-05-12 11:57 | XMS_ITS | Patient Health Record ---
Author Organization [facility] Address [address] [place] [address] Care Team Providers Care Marine Safety Officer Name Role Phone Izzy KRUSE, Mo Primary Care Provider Lita Abebe Unavailable [phone] Allergies Allergen (clinical drug ingredient) Drug/Non Drug [...] Problem Acquired hammer toe of right foot (8806346542853851 ) Other hammer toe(s) (acquired), right foot (M20.41) Active confirmed Problem Acquired hammer toe of left foot (0722103046412092 ) Other hammer toe(s) (acquired), left foot (M20.42) Active confirmed Problem Polyneuropathy due to type 2 diabetes mellitus (543353321) Type 2 diabetes mellitus with diabetic polyneuropathy (E11.42) Active confirmed Problem Neuropathy (510313118) Neuropathy (G62.9) Active confirmed Vital Signs Blood pressure diastolic 75 mm Hg 04/21/2025 Height 6ft in 04/21/2025 Blood pressure systolic 130 mm Hg 04/21/2025 Weight 290 lbs 04/21/2025 BMI 39.33 kg/m2 04/21/2025 Procedures Procedure Date Ordered Date Performed Result Body Sit e 27507-PGLHFDN NAIL, 1-5 04/21/2025 N/A 28046-BGIU SKIN LESIONS, 2 TO 4 04/21/2025 N/A [id number] DYSTROPHIC NAILS ANY # 04/21/2025 N/A Encounters Encounter Location Date Provider Diagnosis [facility] [address] [place] [address] 04/21/2025 Lita Cast Type 2 diabetes katerina [...] Treatment Pending Test Test Name Order Date 40466-SYLUNEB NAIL, 1-5 04/21/2025 69297-IEYP SKIN LESIONS, 2 TO 4 04/21/20 25 [id number] DYSTROPHIC NAILS ANY # Next Appt Details Provider Name:Lita Cast , 08/25/2025 02:00:00 PM, [address] [facility], [place], [address], Insurance Providers Payer Name Payer Address Payer Phone Subscriber Number Group Number Insured Name Patient Relationship to Insured Coverage Start Date Coverage End Date Medicare National [employer] [address] [place] [address] [id number] Donell Aguilar Self - patient is the insured 5 Medical (General) History Medical History History ICD Code Anxiety Back,Hip,and Knee pain Crohns disease Diabetic High Blood Pressure Numbness Chron's/ Colitis Psoriasis OA in knees Suboxone Fistula Surgical History Surgery Date(Month/Year) 3 feet of intestines removed 12/24 Hospitalization History Reason Date(Month/Year) pinched nerve 03/26
== END 2025-05-12 10:50 | disposition home or self-care (01) ==
LOC: HO.HOS 10:23
PROVIDERS: PCP Internal Medicine; Visit Provider Orthopaedic Surgery
DX: M25.512 Pain in left shoulder (principal)
CPT/HCPCS: 99213; G2211

== ENCOUNTER → 2025-05-12 10:23 | Outpatient (BNVA) | payer MEDICARE, MEDICAID, SELFPAY | PROVIDERS: PCP Internal Medicine; Visit Provider Orthopaedic Surgery | DX: M25.512 Pain in left shoulder (principal) | CPT/HCPCS: 99212 ==

== ENCOUNTER 2025-06-01 14:26 | Outpatient (AMB) | payer MEDICARE, MEDICAID, SELFPAY ==
--- NOTE | 2025-06-01 14:29 | A.SPINEOV_ITS ---
Intake Visit Reasons: 6wk f/u Intake Note: Mr. Aguilar is here today for his 6 weeks F/u. Crayon Sawyer Required: No Allergies No Known Allergies Allergy (Verified 05/12/25 10:29) Assessment & Plan Assessment & Plan (1) Cervical stenosis of spinal canal: Code(s): M48.02 - Spinal stenosis, cervical region Category: Medical Plan Mr Aguilar underwent his physical therapy, and although he has into his 5th week at this point, there has been some temporary improvement in his arm pain while they are doing cervical traction, but at time he is leaving the office, all the pain has returned down his left arm. He has completed adequate conservative treatment at this point and we tentatively gave him a date for July 09 for an anterior cervical fusion C6-7. He recently started a medication for his Crohn's disease, but could not remember the name of it so I asked him to call me with the name so I can make sure it is not something we need to stop before surgery. The patient was given risk and benefits of surgery including but not limited to infection, hematoma, nerve injury, durotomy, weakness, persistent pain. We discussed that if undergoing anterior cervical fusion there may be trachea or esophageal injury, hoarseness, or difficulty swallowing. There is a risk of p seudoarthrosis or instrumentation failure if undergoing cervical fusion. We also reviewed the option to continue with conservative treatment and patient wishes to proceed with surgery. They are aware they should stop NSAIDs 7 days prior to surgery. All questions were answered to the best of our ability. If there is anything about this patient's medical history that we have overlooked or concerns you have about us proceeding with surgery we would appreciate any input you can offer Total amount of time spent in this visit was 20 minutes in discussion of symptoms, cervical imaging results and subsequent plan of care Lucio Pinedo MD,PhD [facility] Coding Level of Care Code Est Pt Level 3 (69663) Diagnoses Cervical stenosis of spinal canal M48.02
--- OUTSIDE RECORDS SUMMARY | 2025-06-01 17:46 | XMS_ITS | Encounter Summary ---
Author Organization [facility] Address [address] [place] [address] Care Team Providers Care Sales Driver Name Role Phone ClairMo fu Primary Care Provider [phone] Encounter Details Date Type Department Care Team ([facility] Contact Info) Description 01/22/[address] [facility] - Main Lab 299 [facility] [place] [address] Janice Tello NP [address] [place] [address] [address] [place] [address] Urinary tract infection, site not specified; Hematuria, [...] Upcoming Encounters Date Type Department Care Team ([facility] Contact Info) Description 11/04/2025 2:40 PM EDT Office Visit Gastroenterology - 299 [facility] [address] [facility] [address] [place] [phone] Xenia Son PA [address] [place] [address] documented as of this encounter Procedures Procedure [...] reflex microscopic (01/22/2025 9:00 AM EDT) Specific [place] Urine 1.030 1.003 - 1.030 LAB URINALYSIS [...] - AUTOMATED METHOD 01/22/2025 1:06 PM T [facility] Bilirubin, Urine Negative Negative LAB URINALYSIS - AUTOMATED METHOD 01/22/2025 1:06 PM EDT [facility] Blood, Urine Negative Negative LAB URINALYSIS - AUTOMATED METHOD 01/22/2025 1:[address] [facility] RBC, Urine 1.3 0 - 4 /HPF LAB URINALYSIS - AUTOMATED METHOD 01/22/2025 1:06 PM EDT [facility] WBC, Urine 1.0 0 - [...] 01/22/2025 11:06 AM EDT us Camacho Tello PASTRY DECORATOR LAB URINE ORDERABLES Final Resul t [facility] [address] [place] [address], * Culture urine (01/22/2025 9:00 AM EDT) Culture, Urine <10,000 CFU/mL gram positive cocci, insignificant count, no further workup 01/23/2025 7:44 AM EDT [facility] Urine Urine specimen obtained by clean catch procedure / Unknown 01/22/2025 9:00 AM EDT 01/22/2025 11:06 AM EDT us Camacho Tello PASTRY DECORATOR LAB MICROBIOLOGY - GENERAL ORDER ARCADIO Final Result [facility] [address] [place] [address], documented in this encounter Visit Diagnoses Diagnosis Urinary tract infection, site not specified Hematuria, unspecified documented in this encounter Care Teams Sales Driver Relationship Specialty Start Date End Date Mo Magana DO [address] [place] [phone] PCP - General 08/14/22 documented as of this encounter
--- OUTSIDE RECORDS SUMMARY | 2025-06-01 17:46 | XMS_ITS | Clinical Summary ---
Author Organization [facility] Address [address] [place] [address] Phone Care Team Providers Care Draw Off Worker Name Role Phone Eliebertin Mo Primary Care Provider [phone] Allergies Active Allergy Reactions Criticality Noted Date [...] Max Daily Amount: 30 mg 15 tablet 09/14/19 25 Active magnesium oxide 500 mg magnesium tablet Take 1 tablet by mouth 1 (one) time each day. 30 each 3 01/08/20 25 Active predniSONE (DELTASONE) 10 mg tablet Please take 4 pills of prednisone for 5 days, then take 3 pills of prednisone for 5 days, then take 2 pills of prednisone for 5 days, then took 1 pill of prednisone for 5 days, then take half a pill of prednisone for 5 days 60 tablet 1 02/18/20 25 Active upadacitinib (Rinvoq) 15 mg tablet extended release 24 hr Take 15 mg by mouth 1 (one) time each day. Start after rinvoq 45mg completed. 30 tablet 3 02/24/20 25 Active betamethasone dipropionate (DIPROSONE) 0.05 % cream Active clonazePAM (KlonoPIN) 0.5 mg tablet Take 1 tablet (0.5 mg total) by mouth. 11/14/19 23 Active erythromycin 5 mg/gram (0.5 %) ophthalmic ointment Active gabapentin (NEURONTIN) 300 mg capsule 02/04/20 25 Active hydroCHLOROthiaz ginger (HYDRODIURIL) 25 mg tablet Active hydroCHLOROthiaz ginger (HYDRODIURIL) 50 mg tablet Active ibuprofen (ADVIL,MOTRIN) 800 mg tablet 02/04/20 25 Active liraglutide (Victoza 2-Tony) 0.6 mg/0.1 mL (18 mg/3 mL) injection 11/14/19 23 Active semaglutide (Ozempic) 0.25 mg or 0.5 mg (2 mg/3 mL) injection pen Active tamsulosin (FLOMAX) 0.4 mg 24 hr capsule 02/14/20 25 Active simethicone (MYLICON,GAS-X) 180 mg capsule Take 1 capsule (180 mg total) by mouth 4 (four) times a day. 04/14/20 24 Active sildenafiL (VIAGRA) 100 mg tablet Take 1 tablet (100 mg total) by mouth. 08/08/[address] (ENTOCORT EC) 3 mg 24 hr capsule Take 3 capsules (9 mg total) by mouth 1 (one) time each day in the morning. 90 each 3 05/18/20 25 026 Active upadacitinib (Rinvoq) 45 mg tablet extended release 24 hr Take 45 mg by mouth 1 (one) time each day. After 12 weeks, take 15mg daily. 30 tablet 2 02/19/20 25 025 Discontinued Active Problems Problem Noted Date Diagnosed Date AA (alcohol abuse) 04/08/2025 Abnormal liver function tests 04/08/2025 Anxiety 04/08/2025 Crohn's disease of colon ([facility] V24, [facility] V 28) 04/08/2025 Overview (04/08/2025): Colonoscopy 2011 Crohn's disease, repeat 2016. Diabetes mellitus type II, c ontrolled ([facility] V24, [facility] V28) 04/08/2025 Hypercholesterolemia 04/08/2025 Hypertension 04/08/2025 Marijuana use 04/08/2025 Opiate dependence ([facility] V24, [facility] V28) 01/2025 Severe obesity ([facility] V24, [facility] V28) 2024 Tick bite of left calf 04/08/2025 Crohn's disease of small int estine with fistula ([facility] V24, [facility] V28) 07/15/2024 Encounters Date Type Department Care Team Description 05/18/2025 1:20 PM EST Office Visit Gastroenterology - [address] [address] Xenia Son PA Crohn's disease of small intestine with fistula ([facility] V24, [facility] V28) (Primary Dx) 05/18/2025 Telephone Gastroenterology - [address] [facility] [address] [place] [phone] Xenia Son PA 04/29/2025 Telephone Gastroenterology - [place] [address] [facility] [address] [place] [address] Xenia Son PA 04/13/2025 Telephone Gastroenterology [facility] [address] [facility] [address] [place] [address] Xenia Son PA from Last 3 Months Surgical History Surgery Date Site/Laterality Comments OTHER SURGICAL HISTORY COLONOSCOPY COLON SURGERY Medical History Medical History Date Comments Hyperlipidemia Hypertension Diabetes mellitus ([facility] V24, [facility] V28) Crohn's disease of colon with fistula ([facility] V 24, [facility] V28) Irritable bowel syndrome Anxiety Depression Chronic pain disorder Arthritis Joint pain multtiple Abdominal pain despite thera py for Crohn's disease ([facility] V24, [facility] V28) Social [...] Sign Reading Time Taken Comments Blood Pressure 130/60 05/18/2025 1:14 PM EST Pulse 83 05/18/2025 1:14 PM EST Temperature 36.5 C (97.7 F) 09/25/2024 12:54 PM EDT Respiratory Rate 18 09/13/2024 8:00 AM EDT Oxygen Saturation 98% 05/18/2025 1:14 PM EST Inhaled Oxygen Concentration - - Weight 130 kg (286 lb 9.6 oz) 05/18/2025 1:14 PM EST Height 185.4 cm (6' 1 ) 05/18/2025 1:14 PM EST Body Mass Index 37.81 05/18/2025 1:14 PM EST Plan of Treatment Upcoming Encounters Date Type Department Care Team (Late st Contact Info) Description 11/04/2025 2:40 PM EDT Office Visit Gastroenterology - [address] [facility] [address] [place] [phone] Xenia Son PA [address] [facility] [address] [place] [address] Health Maintenance Due Date Last Done Comments [...] Crohn's disease of small intestine with fistula ([facility] V24, [facility] V28) HEMOGLOBIN A1C Routine 10/17/2024 2:48 PM EDT HTN (hypertension) HLD (hyperlipidemia) DM (diabetes mellitus) ([facility] V24, [facility] V28) LIPID PANEL WITH REFLEX TO DIRECT LDL Routine 10/17/2024 2:48 PM EDT HTN (hypertension) HLD (hyperlipidemia) DM (diabetes mellitus) ([facility] V24, [facility] V28) from Last 3 Months or Most Recently Relevant to Health Maintenance Results * (ABNORMAL) Comprehensive metabolic panel (01/07/2025 2:50 PM EDT) Sodium 136 133 - 145 mmol/L LAB CHEMISTRY METHOD 01/07/2025 7:24 PM [facility] Potassium 4.0 3.5 - 5.5 mmol/L LAB CHEMISTRY METHOD 01/07/2025 7:24 PM T [facility] Chloride 102 96 - 110 mmol/L LAB CHEMISTRY METHOD 01/07/2025 7:24 PM [facility] CO2 23 21 - 32 mmol/L LAB CHEMISTRY METHOD 01/07/2025 7:24 PM [facility] Anion Gap 11 3 - 11 LAB CHEMISTRY METHOD 01/07/2025 7:24 PM [facility] Glucose 199(H) 70 - 100 mg/dL LAB CHEMISTRY METHOD 01/07/2025 7:24 PM [facility] BUN 13 5 - 25 mg/dL LAB CHEMISTRY METHOD 01/07/2025 7:24 PM [facility] Creatinine 1.12 0.70 - 1.30 mg/dL LAB CHEMISTRY METHOD 01/07/2025 7:24 PM [facility] eGFR 75 >=60 mL/min/1. 73m2 LAB CHEMISTRY METHOD 01/07/2025 7:24 PM [facility] Comment:Calculation based on the Chronic Kidney Disease Epidemiology Collaboration (CKD-EPI) equation refit without adjustment for race. BUN/Creatinine Ratio 11.6 LAB CHEMISTRY METHOD 01/07/2025 7:24 PM [facility] Calcium 9.9 8.5 - 10.5 mg/dL LAB CHEMISTRY METHOD 01/07/2025 7:24 PM [facility] AST (SGOT) 14 10 - 42 unit/L LAB CHEMISTRY METHOD 01/07/2025 7:24 PM [facility] ALT (SGPT) 27 10 - 60 unit/L LAB CHEMISTRY METHOD 01/07/2025 7:24 PM [facility] Alkaline Phosphatase 86 42 - 121 unit/L LAB CHEMISTRY METHOD 01/07/2025 7:24 PM [facility] Total Protein 7.8 6.0 - 8.0 g/dL LAB CHEMISTRY METHOD 01/07/2025 7:24 PM [facility] Albumin 3.9 3.2 - 5.0 g/dL LAB CHEMISTRY METHOD 01/07/2025 7:24 PM [facility] Total Bilirubin 0.4 0.0 - 1.4 mg/dL LAB CHEMISTRY METHOD 01/07/2025 7:24 PM [facility] Blood Venous blood specimen / Unknown Venipuncture / Unknown 01/07/2025 2:50 PM EDT 01/07/2025 2:50 PM EDT us Xenia RUTH LAB BLOOD ORDERABLES Final Re sult [facility] [address] [place] [address], [place] [phone] * Lipid panel with reflex to direct LDL (10/17/2024 2:48 PM EDT) Cholesterol 98 0 - 200 mg/dL LAB CHEMISTRY METHOD 10/17/2024 8:13 PM EDT [facility] Triglycerides 89 0 - 150 mg/dL LAB CHEMISTRY METHOD 10/17/2024 8:13 PM EDT [facility] HDL 51 >=40 mg/dL LAB CHEMISTRY METHOD 10/17/2024 8:13 PM EDT [facility] LDL Calculated 29 0 - 100 mg/dL LAB CHEMISTRY METHOD 10/17/2024 8:13 PM EDT [facility] VLDL Cholesterol Rajeev 17.8 mg/dL LAB CHEMISTRY METHOD 10/17/2024 8:13 PM EDT [facility] Non HDL Chol. (LDL+VLDL) 47 <145 mg/dL LAB CHEMISTRY METHOD 10/17/2024 8:13 PM EDT [facility] Chol/HDL Ratio 1.9 0.0 - 4.4 LAB CHEMISTRY METHOD 10/17/2024 8:13 PM EDT [facility] Blood Venous blood specimen / Unknown Venipuncture / Unknown 10/17/2024 2:48 PM EDT 10/17/2024 2:48 PM EDT us Janice Tello [employer] LAB BLOOD ORDERABLES Final Resul t Performing Organization Address [facility]/ZIP Co de Phone Number [facility] [address] [place] [address], [place] [phone] * Hemoglobin A1c (10/17/2024 2:48 PM EDT) Hemoglobin A1C 6.0 <6.5 % LAB CHEMISTRY METHOD 10/17/2024 9:34 PM EDT [facility] Mean Bld Glu Estim. 126 mg/dL LAB CHEMISTRY METHOD 10/17/2024 9:34 PM EDT [facility] Blood Venous blood specimen / Unknown Venipuncture / Unknown 10/17/2024 2:48 PM EDT 10/17/2024 2:48 PM EDT us Camacho Tello [employer] LAB BLOOD ORDERABLES Final Resul t [facility] [address] [place] [address], [place] [phone] from Last 3 Months or Most Recently Relevant to Health Maintenance Insurance * Guarantor: Abner Aguilar Account Type Relation to Patient Date of Phone Billing Address Personal/Family Self 1965 [address] [facility] [address] [place] [address] MED[place] - [place] MEDICARE Care Teams Draw Off Worker Relationship Specialty Start Date End Date Mo Magana DO [address] [place] [id number] [facility] - General 08/14/22
--- OUTSIDE RECORDS SUMMARY | 2025-06-01 17:46 | XMS_ITS | Data Portability ---
Author Organization [facility] Address [address] [place] [address] Assessment Encounter Date Assessment Date Assessment LastModified [...] to your physical therapy appointment 2023 024 [facility] [place], [address] [place] [address], [place], [address], 4 14:53:53 physical therapist referral - Strengtheni [...] etc. Referring Physician: Lucio Kaiser, Orthopedic Surgery, [id number] Encounter Date: 09/11/2023 Physical Therapist Referral for Osteoarthritis of knee ROM, Strengthening, Conditioning, Gait Training Etc.Physical therapy to begin 7- 10 days after surgery, in an outpatient site. Please bring this script and attached protocol with you to your physical therapy appointment Referring Physician: Lucio Kaiser, Orthopedic Surgery, [id number] Encounter Date: 09/11/2023 Results Created Date Observation [...] ===== ===== ===== === Not Available [facility] ([facility]) [address] [facility], [place], [address], 09/20/2023 16:06:50 Result Notes None recorded. Medical Equipment None Reported. Allergies Allergen ID Allergen Name Allergen Category Reaction Reaction Severity Criticality Documentation Date Start Date Code Code System Note Provider Name and Address Organization Details Recorded Time 057544 Humira medicatio n Not available Not available Not available 09/11/2023 91827 4 RxNorm CHIQUITA vargas [place] - [facility] 14:55:40 Medications Name Sig Start [...] Address Organization Details Last Updated DateTime 09/11/2023 036456.23 g 37.5 kg/m2 185.42 cm CHIQUITA DIGGS [place] - [facility] 09/11/2023 14:55:03 Social History None recorded. Functional Status None recorded. Mental Status None recorded. Family History Nothing Reported. Medical History No medical history recorded. Past Encounters Encounter ID Performer Location Encounter Start Date Encounter Closed Date Diagnosis/Indication Diagnosis SNOMED-CT Code Diagnosis ICD10 Code Diagnosis IMO Codes Diagnosis Note [id number] MD [facility] [address] [place] [address] 09/11/2023 14:38:30 10/01/2023 13:34:49 Osteoarthritis of right knee joint 6057367696 88446 M17.11 Osteoarthr itis of knee 248521813 M17.9 Health Concerns Section Related Observation LastModified by Organization Detai ls LastModified Time None Recorded Concern Status LastModified by Organization Details LastModified Time None Recorded Advance Directives Directive None Recorded Payers Insurance Date Sequence Insurance Name Policy Number Policy Concepcion Covered Member ID Concepcion Member ID Guarantor Name 06/28/2024 1 [facility] [employer] (MEDICAID REPLACEMENT - HMO) [id number] Donell Aguilar [id number] Donell Aguilar
--- OUTSIDE RECORDS SUMMARY | 2025-06-01 17:46 | XMS_ITS | Encounter Summary ---
Author Organization [facility] Address [address] [place] [address] Care Team Providers Care Electroplating Worker Name Role Phone ClairhelgachapinMo denton Primary Care Provider [phone] Encounter Details Date Type Department Care Team ([facility] Contact Info) Description 05/18/2025 Telephone Gastroenterology - [address] [facility] [address] [place] [address] Xenia Son PA 299 [facility] [address] [place] [address] Social History Tobacco Use Types Packs/Day Years [...] encounter Progress Notes * FARAZ Sagastume - 06/01/2025 5:00 PM EST In the past, he did very well with Remicade, so that is why I am doing Remicade. Thank you so much * Lizette Talavera MA - 06/01/2025 1:02 PM EST Patient was approved for Entyvio per 04/13/25 note, per office visit, want to change to remicade? Please clarify what you would like to have patient start. MDK * Lizette Talavera MA - 05/26/2025 8:53 AM EST Faxed signed PA form along with clinicals to Medicare Part B at . MDK * Lizette Talavera MA - 05/21/2025 1:16 PM EST Prior Authorization for Remicade 5mg/kg IV started. PA form given to provider to sign. Signed PA form and clinicals to be faxed to Medicare Part B at . MDK * Hellen Sanders MA - 05/19/2025 2:17 PM EST 6 month FU is made, apt reminder mailed * FARAZ Sagastume - 05/18/2025 2:39 PM EST Patient could not tolerate Rinvoq due to side effects, he used to take Remicade, and he would like to get on it, can we do the paperwork for Remicade, Please schedule follow-up with me in 6 months, thank you so so much documented in this encounter Plan of Treatment Upcoming Encounters Date Type Department Care Team (Late st Contact Info) Description 11/04/2025 2:40 PM EDT Office Visit Gastroenterology - [address] [place] [phone] Xenia Son PA 299 [facility] [address] [place] [address] documented as of this encounter Visit Diagnoses Not on filedocumented in this encounter Care Teams Electroplating Worker Relationship Specialty Start Date End Date Mo Magana DO [address] [place] [phone] PCP - General 08/14/22 documented as of this encounter
== END 2025-06-01 15:09 | disposition home or self-care (01) ==
LOC: HO.HNS 14:27
PROVIDERS: PCP Internal Medicine; Visit Provider Physician Assistant
DX: M48.02 Spinal stenosis, cervical region (principal)
CPT/HCPCS: 99213

== ENCOUNTER → 2025-06-01 14:26 | Outpatient (BNVA) | payer MEDICARE, MEDICAID, SELFPAY | PROVIDERS: PCP Internal Medicine; Visit Provider Physician Assistant | DX: M48.02 Spinal stenosis, cervical region (principal) | CPT/HCPCS: 99212 ==